=== PATIENT | male | born 1935 | race Hispanic/Latino ===

== ENCOUNTER 2018-02-09 11:24 | Emergency (ER) | payer MEDICARE ==
[2018-02-09 11:24] VITALS: BMI 21.9
--- NOTE | 2018-02-09 11:44 | C.PDOC ---
History Of Present Illness 82 y/o male, whose PMH includes hypertension, atrial fibrillation, arthritis, and pacemaker, who presents to the emergency department complaining of possible stroke prior to arrival. Patient reports having right shoulder pulling pain that radiates down the arm since last night at 12 AM. He notes waking up this morning at 4 AM and while shaving, he dropped his razor and decided to call 911. Additionally, patient is complainig of cough secondary to using A/C. Patient denies chest pain, shortness of breath, headache, fever, chills, nausea , vomiting, diarrhea, diaphoresis, jaw pain, back pain, lower extremity pain/ swelling, recent travels, recent surgery, or recent prolonged immobilization. Patient had echocardiography by his PMD and was scheduled to follow up next week. PMD: Dr. Lai Time Seen by Provider: 02/09/18 11:42 Chief Complaint (Nursing): Upper Extremity Problem/Injury History Per: Patient History/Exam Limitations: no limitations Onset/Duration Of Symptoms: Hrs Current Symptoms Are (Timing): Still Present Recent travel outside of the [place]: No Past Medical History Reviewed: Historical Data, Nursing Documentation, Vital Signs Vital Signs: Last Vital Signs Temp 98.8 F 02/09/18 13:45 Pulse 85 02/09/18 13:45 Resp 18 02/09/18 13:45 BP 130/74 02/09/18 13:45 Pulse Ox 99 02/09/18 13:45 - Medical History PMH: Arthritis, Atrial Fibrillation, HTN Surgical History: Pacemaker ([employer]) Family History: States: No Known Family Hx - Social History Hx Tobacco Use: No Hx Alcohol Use: Yes (FEW BEERS/WEEK) Hx Substance Use: No - Immunization History Hx Tetanus Toxoid Vaccination: No Hx Influenza Vaccination: Yes Hx Pneumococcal Vaccination: Yes Review Of Systems Constitutional: Negative for: Fever, Chills Cardiovascular: Negative for: Chest Pain Respiratory: Positive for: Cough. Negative for: Shortness of Breath Gastrointestinal: Negative for: Vomiting, Abdominal Pain Genitourinary: Negative for: Dysuria Musculoskeletal: Positive for: Shoulder Pain (right shoulder radiating down arm) , Arm Pain (right arm) Neurological: Negative for: Change in Speech, Dizziness Physical Exam - Physical Exam Appears: Well, Non-toxic, No Acute Distress Skin: Normal Color, Warm, Dry Head: Atraumatic, Normacephalic Eye(s): bilateral: Normal Inspection, PERRL, EOMI Cardiovascular: Rhythm Regular, No Murmur Respiratory: Normal Breath Sounds, No Decreased Breath Sounds, No Rales, No Rhonchi, No Wheezing Gastrointestinal/Abdominal: Normal Exam, Bowel Sounds (active), Soft, No Tenderness, No Distention, No Guarding, No Rebound Extremity: No Normal ROM (limited ROM on right shoulder and arm. Patient has difficulty lifting arm above head ), No Deformity, Other (crepitus on right shoulder. ) Extremity: Left: Normal ROM (limited ROM for right arm) Neurological/Psych: Oriented x3, Normal Speech, Normal Cognition, Normal Motor, Normal Sensation, Normal Reflexes, Other (no pronator drift ) ED Course And Treatment Pulse Ox Interpretation: Normal Medical Decision Making Medical Decision Making: Impression: 82 y/o male with limited range of motion on right shoulder and arm c/o right shoulder pain since last night. Plan: -- Toradol -- Right shoulder x-ray -- Reassess and disposition Progress Note: 02/09/18 Shoulder x-ray interpreted by me: No noted dislocation or fx. Patient states he feels better and is waiting for someone to pick him up. Disposition - Disposition Disposition: HOME/ ROUTINE Disposition Time: 15:01 Condition: GOOD Instructions: Shoulder Sprain Forms: [employer] (Peruvian) - Clinical Impression Clinical Impression: Shoulder sprain - Scribe Statement The provider has reviewed the documentation as recorded by the Scribe Scribe Attestation: Joy Shirley MD Scribe Attestation: All medical record entries made by the Scribe were at my direction and personally dictated by me. I have reviewed the chart and agree that the record accurately reflects my personal performance of the history, physical exam, medical decision making, and the department course for this patient. I have also personally directed, reviewed, and agree with the discharge instructions and disposition.
[2018-02-09 13:46] VITALS: BP 130/74; PULSE 85; RESP 18; TEMP 98.8; O2SAT 99
--- NOTE | 2018-02-09 17:52 | RAD ---
PROCEDURE: Radiographs of the Right Shoulder HISTORY: shoulder pain COMPARISON: No prior. FINDINGS: BONES: There is diffuse bone demineralization. There is no acute displaced fracture or bone destruction. There is superior displacement of the humeral head with reduced subacromion space. JOINTS: Mild degenerative osteoarthrosis in the glenohumeral and acromioclavicular joints. SOFT TISSUES: There are faint lobular calcifications lateral to the humeral head which may represent calcific tendinitis. OTHER FINDINGS: None. IMPRESSION: No acute displaced fracture or dislocation. Findings concerning for chronic rotator cuff injury. Degenerative osteoarthrosis in the glenohumeral and acromioclavicular joints. 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
== END 2018-02-09 15:08 | disposition home or self-care (01) ==
LOC: C.ER 11:24
DX: S43.401A Unspecified sprain of right shoulder joint, initial encounter (principal); X58.XXXA Exposure to other specified factors, initial encounter; Y92.89 Other specified places as the place of occurrence of the external cause; I10 Essential (primary) hypertension; I48.91 Unspecified atrial fibrillation; Z95.0 Presence of cardiac pacemaker; Z87.891 Personal history of nicotine dependence
CPT/HCPCS: 73030; 82948; 96374; 99284; J1885

== ENCOUNTER 2018-02-11 16:30 | Inpatient (IN) | payer MEDICARE ==
[2018-02-11 16:31] VITALS: BMI 21.9
[2018-02-11 17:24] LABS: BASO # 0.1 K/uL (0.0-0.2); BASO % 1.5 % (0.0-2.0); EOS # 0.2 K/uL (0.0-0.7); EOS % 3.3 % (0.0-4.0); HEMOGLOBIN 16.2 g/dL (12.0-18.0); LYMPH # 0.7 K/uL (1.0-4.3); MEAN CORPUSCULAR HEMOGLOBIN 32.3 pg (27.0-31.0); MEAN CORPUSCULAR HGB CONC 33.5 g/dL (33.0-37.0); MEAN PLATELET VOLUME 8.1 fL (7.2-11.7); MONO # 0.8 K/uL (0.0-0.8); NEUT # 4.9 K/uL (1.8-7.0); NEUT % 72.2 % (50.0-75.0); NRBC % 0.1 % (0.0-2.0); RBC 5.01 Mil/uL (4.40-5.90); RED CELL DISTRIBUTION WIDTH 14.3 % (11.5-14.5); WHITE BLOOD COUNT 6.7 K/uL (4.8-10.8)
[2018-02-11 17:37] LABS: INR 1.7
[2018-02-11 17:40] LABS: ALB/GLOB RATIO 1.3 (1.0-2.1); ALBUMIN 4.4 g/dL (3.5-5.0); ALT/SGPT 39 U/L (21-72); AST/SGOT 42 U/L (17-59); BLOOD UREA NITROGEN 18 mg/dL (9-20); CALCIUM 9.2 mg/dl (8.6-10.4); GFR AFRICAN-AMERICAN > 60; GFR NON-AFRICAN AMERICAN > 60
[2018-02-11 17:42] LABS: MEAN CELL VOLUME 96.5 fL (80.0-94.0)
--- NOTE | 2018-02-11 17:59 | C.PDOC ---
History Of Present Illness 82 yo male w/PMHx of afib, pacemaker, CAD, COPD come in for evaluation of few episodes of SOB developed since today AM. Pt describes, noted some SOB on exertion, relieved by rest, intermittent, self-limited, associated with weakness , dizziness. Pt reports, was seen by his card. last week, pace maker re -check " was told there is some problem, suppose to see him tomorrow". Otherwise , pt denies fever, chills, recent illness, headache, vertigo, visual changes, focal deficits, CP, cough, palpitation, wheezing, abd. pain, N/V, UTI sx. Ambulate to Ed, not in any apparent distress. Time Seen by Provider: 02/11/18 16:41 Chief Complaint (Nursing): Shortness Of Breath History Per: Patient Past Medical History Reviewed: Historical Data, Nursing Documentation, Vital Signs Vital Signs: Last Vital Signs Temp 97.7 F 02/12/18 15:04 Pulse 91 H 02/12/18 15:04 Resp 20 02/12/18 15:04 BP 127/81 02/12/18 15:04 Pulse Ox 94 L 02/12/18 15:04 - Medical History PMH: Arthritis, Atrial Fibrillation, HTN Surgical History: Pacemaker ([employer]) Family History: States: No Known Family Hx - Social History Hx Tobacco Use: No Hx Alcohol Use: Yes (FEW BEERS/WEEK) Hx Substance Use: No - Immunization History Hx Tetanus Toxoid Vaccination: No Hx Influenza Vaccination: Yes Hx Pneumococcal Vaccination: Yes Review Of Systems Except As Marked, All Systems Reviewed And Found Negative. Constitutional: Positive for: Malaise. Negative for: Fever, Chills Eyes: Negative for: Vision Change ENT: Negative for: Throat Pain Cardiovascular: Positive for: Light Headedness. Negative for: Chest Pain, Palpitations, Orthopnea, Paroxysmal Noc. Dyspnea, Edema Respiratory: Positive for: Shortness of Breath, SOB with Excertion. Negative for: Cough, Hemoptysis, Wheezing Gastrointestinal: Negative for: Nausea, Vomiting, Abdominal Pain, Diarrhea Genitourinary: Negative for: Dysuria Musculoskeletal: Negative for: Neck Pain Neurological: Negative for: Weakness, Numbness, Altered Mental Status, Headache , Dizziness Physical Exam - Physical Exam Appears: Well, Non-toxic, No Acute Distress Skin: Normal Color, Warm, Dry, No Rash Head: Normacephalic Eye(s): bilateral: PERRL Nose: No Flaring, No Discharge Oral Mucosa: Moist, No Drooling Tongue: Normal Appearing Lips: Normal Appearing Throat: No Erythema, No Drooling Neck: Normal ROM, Trachea Midline, Supple Cardiovascular: Rhythm Regular, No Murmur, No JVD Respiratory: No Decreased Breath Sounds, No Accessory Muscle Use, No Stridor, No Wheezing Gastrointestinal/Abdominal: Soft, No Tenderness Extremity: Normal ROM, No Pedal Edema, No Deformity, No Swelling Neurological/Psych: Oriented x3, Normal Speech, Normal Motor, Normal Sensation, Normal Reflexes ED Course And Treatment - Laboratory Results Result Diagrams: 02/12/18 04:18 02/12/18 04:18 ECG: Interpreted By Me, Viewed By Me ECG Rhythm: Atrial Fibrillation ECG Interpretation: No Changes From Prior Interpretation Of ECG: AFib@81/min O2 Sat by Pulse Oximetry: 97 Pulse Ox Interpretation: Normal - Radiology CXR: Interpreted by Me, Viewed By Me CXR Interpretation: Yes: No Acute Disease Progress Note: Pt remained tsable during the ED evaluation. Afebrile, hemodynmaicalys table. NOn-toxic. Blood work review, high BNP, Troponin- negative. EKG- no new changes compare to old study. Pt's cardiology Dr.Desai nolen, no answer for 1.5 hrs. Pt's PMD , hospitalist covering inpatient care. Case discussed with hospitalist and admission arranged to tele with Dx: SOB, CHF exacerbation. Disposition - Disposition Disposition: HOSPITALIZED Disposition Time: 18:10 Condition: STABLE - Clinical Impression Clinical Impression: Chronic congestive heart failure, Dyspnea, Pacemaker malfunction
[2018-02-11 18:09] LABS: B-TYPE NATRIURETIC PEPTIDE 1940 pg/mL (0-900)
[2018-02-11 18:25] LABS: URINE BILIRUBIN NEGATIVE (NEGATIVE); URINE BLOOD 1+ (NEGATIVE); URINE CLARITY Clear (Clear); URINE COLOR Yellow (YELLOW); URINE GLUCOSE (UA) NORMAL (Normal); URINE LEUKOCYTE ESTERASE TRACE Leu/uL (Negative); URINE PROTEIN NEGATIVE (NEGATIVE); URINE UROBILINOGEN NORMAL mg/dL (0.2-1.0)
--- NOTE | 2018-02-11 18:39 | RAD ---
PROCEDURE: CHEST RADIOGRAPH, 1 VIEW HISTORY: chest pain COMPARISON: 07/29/2015 FINDINGS: LUNGS: Clear. PLEURA: No pneumothorax or pleural fluid seen. CARDIOVASCULAR: No radiographic findings to suggest acute or significant cardiovascular disease.Position/ configuration of pacemaker device: Satisfactory. OSSEOUS STRUCTURES: No significant abnormalities. VISUALIZED UPPER ABDOMEN: Normal. OTHER FINDINGS: None. IMPRESSION: No active disease. No acute/significant interval changes.
--- NOTE | 2018-02-11 21:07 | CP.PCM.HP ---
<BrunoKristine SEmilia - Last Filed: 02/11/18 23:12> History of Present Illness - History of Present Illness History of Present Illness: Code Status: DNR/DNI --> patient states he has a POLST form at home Advanced directive: denies POA: Austin Ogden (niece) #[phone]; #[phone] CC: "shortness of breath" HPI: 82 year old male with past medical history as noted below presents to the ER for shortness of breath. Patient states he started having sob at 11am today. He states he was walking in his apartment and he could not catch his breath. He had to sit himself down and it took about 25 minutes before he felt better. He states his neighbors called 911 for him. He states this is the first time this has occurred. He states he felt lightheaded when he was short of breath and weak. He states he uses only one pillow to sleep and he does not use oxygen at home. He denies chest pain, nausea, vomiting, dizziness, headache , diarrhea, constipation, palpitations, dysuria, leg edema at this time. He states he uses a rolling walker and a cane for ambulation. PMD: Dr. Zuniga Traveling Passenger Agent: Dr. Byrd Past Medical History: HTN; Afib; PVD; left heel ulcer (6 months); mandibular cyst Past Surgical History: TAVR - aortic valve replacement 03/2015; Pacemaker 03/2015 - last interrogated was last week; 2 veins removed in his left lower extremity ( 10/2017 and 2014) Medications: Plavix 75mg dialy; Valsartan 40mg daily; Crestor 5mg daily; Xarelta 10mg dialy; protonix 40mg daily; metoprolol tartrate 25mg daily; Lasix 40mg dialy; Fluoxetine 20mg daily Allergies: Penicillin - swelling Family History: Dad - heart disease; at 49yo due to coronary thrombosis; Mom - heart disease; paternal uncle - heart disease Social History: quit smoking 30 years ago; previously smoked for 20 years about 1ppd; drinks 1 beer on a Sunday; denies illicit drug use; lives home along has a home visiting nurse; stopped working in 2014 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 Present on Admission - Present on Admission Any Indicators Present on Admission: No Review of Systems - Constitutional Constitutional: Weakness. absent: Chills, Fever, Weight Gain, Weight Loss - Cardiovascular Cardiovascular: Dyspnea, Dyspnea on Exertion, Lightheadedness. absent: Chest Pain, Leg Edema, Palpitations, Pedal Edema - Respiratory Respiratory: Dyspnea. absent: Cough - Gastrointestinal Gastrointestinal: absent: Abdominal Pain, Constipation, Diarrhea, Nausea, Vomiting - Genitourinary Genitourinary: absent: Dysuria, Hematuria - Musculoskeletal Musculoskeletal: absent: Numbness, Stiffness - Neurological Neurological: Weakness. absent: Dizziness, Headaches, Tingling Past Patient History - Past Social History Smoking Status: Former Smoker - CARDIAC Hx Atrial Fibrillation: Yes Hx Hypertension: Yes Hx Pacemaker: Yes ([employer]) - NEUROLOGICAL Hx Paralysis: No - HEMATOLOGICAL/ONCOLOGICAL Hx Blood Transfusions: No - MUSCULOSKELETAL/RHEUMATOLOGICAL Hx Arthritis: Yes - PSYCHIATRIC Hx Substance Use: No - SURGICAL HISTORY Hx Surgeries: Yes Other/Comment: pacemaker, valve replacement - ANESTHESIA Hx Anesthesia: Yes Hx Anesthesia Reactions: No Hx Malignant Hyperthermia: No Meds Allergies/Adverse Reactions: Allergies Allergy/AdvReac Type Severity Reaction Status Date / Time penicillin V Allergy Severe RASH/HIVES Verified 02/09/18 11:45 Physical Exam - Constitutional Appears: No Acute Distress - Head Exam Head Exam: ATRAUMATIC, NORMAL INSPECTION - Eye Exam Eye Exam: EOMI, Normal appearance, PERRL. absent: Scleral icterus Pupil Exam: NORMAL ACCOMODATION - ENT Exam ENT Exam: Mucous Membranes Moist - Neck Exam Neck exam: Negative for: Lymphadenopathy Additional comments: left side of his mandible - palpable cyst - Respiratory Exam Respiratory Exam: Clear to Auscultation Bilateral, NORMAL BREATHING PATTERN. absent: Rales, Rhonchi, Wheezes, Stridor - Cardiovascular Exam Cardiovascular Exam: Irregular Rhythm. absent: JVD - GI/Abdominal Exam GI & Abdominal Exam: Normal Bowel Sounds, Soft. absent: Tenderness - Extremities Exam Extremities exam: Positive for: normal capillary refill, pedal pulses present. Negative for: joint swelling, normal inspection (left heel ulcer ), pedal edema , tenderness - Neurological Exam Neurological exam: Alert, CN II-XII Intact, Oriented x3 - Psychiatric Exam Psychiatric exam: Normal Affect, Normal Mood - Skin Skin Exam: Normal Color Results - Vital Signs Recent Vital Signs: Last Vital Signs Temp 98.2 F 02/11/18 19:30 Pulse 98 H 02/11/18 19:30 Resp 18 02/11/18 19:30 BP 132/66 02/11/18 19:30 Pulse Ox 95 02/11/18 19:30 - Labs Result Diagrams: 02/11/18 17:20 02/11/18 17:20 Labs: Laboratory Results - last 24 hr 02/11/18 02/11/18 02/11/18 17:20 17:20 17:20 WBC 6.7 RBC 5.01 Hgb 16.2 Hct 48.4 MCV 96.5 H D MCH 32.3 H MCHC 33.5 RDW 14.3 Plt Count 318 MPV 8.1 Neut % (Auto) 72.2 Lymph % (Auto) 11.0 L Stanley % (Auto) 12.0 H Eos % (Auto) 3.3 Baso % (Auto) 1.5 Neut # (Auto) 4.9 Lymph # (Auto) 0.7 L Stanley # (Auto) 0.8 Eos # (Auto) 0.2 Baso # (Auto) 0.1 PT 19.0 H INR 1.7 APTT 45 H Sodium 141 Potassium 3.7 Chloride 101 Carbon Dioxide 28 Anion Gap 15 BUN 18 Creatinine 0.7 L Est GFR ( Amer) > 60 Est GFR (Non-Af Amer) > 60 Random Glucose 127 H Calcium 9.2 Total Bilirubin 1.2 AST 42 ALT 39 Alkaline Phosphatase 107 Troponin I 0.0140 NT-Pro-B Natriuret Pep 1940 H Total Protein 7.8 Albumin 4.4 Globulin 3.4 Albumin/Globulin Ratio 1.3 Urine Color Urine Clarity Urine pH Ur Specific [place] Urine Protein Urine Glucose (UA) Urine Ketones Urine Blood Urine Nitrate Urine Bilirubin Urine Urobilinogen Ur Leukocyte Esterase Urine WBC (Auto) Urine RBC (Auto) 02/11/18 18:10 WBC RBC Hgb Hct MCV MCH MCHC RDW Plt Count MPV Neut % (Auto) Lymph % (Auto) Stanley % (Auto) Eos % (Auto) Baso % (Auto) Neut # (Auto) Lymph # (Auto) Stanley # (Auto) Eos # (Auto) Baso # (Auto) PT INR APTT Sodium Potassium Chloride Carbon Dioxide Anion Gap BUN Creatinine Est GFR ( Amer) Est GFR (Non-Af Amer) Random Glucose Calcium Total Bilirubin AST ALT Alkaline Phosphatase Troponin I NT-Pro-B Natriuret Pep Total Protein Albumin Globulin Albumin/Globulin Ratio Urine Color Yellow Urine Clarity Clear Urine pH 5.0 Ur Specific [place] 1.011 Urine Protein Negative Urine Glucose (UA) Normal Urine Ketones Negative Urine Blood 1+ H Urine Nitrate Negative Urine Bilirubin Negative Urine Urobilinogen Normal Ur Leukocyte Esterase Trace Urine WBC (Auto) 2 Urine RBC (Auto) < 1 Assessment & Plan - Assessment and Plan (Free Text) Assessment: Dyspnea - trop negative x2 - EKG afib; chronic left bundle branch block; 80bpm - Chest xray: no active disease - dunebs prn History of HTN - continue home medications: * Cozar 25mg daily * Lopressor 25mg daily History of Aortic Stenosis s/p TAVR 2014 - BNP 1940 -Continue home medications * Lopressor 25mg daily * Crestor 5mg daily * Plavix 75mg daily * Lasix 40mg daily History of Afib - Continue home medications: * Xeralto 10mg daily - f/u interrogation of pacemaker in the AM Left heel ulcer - boots - daily dressing changes - patient states the nurse has been placing fish skin on the wound History of Gastritis - Pantoprazole 40mg dialy History of Depression - Fluoxetine 20mg daily Prophylaxis - Pantoprazol 40mg daily - Xeralto 10mg dialy - SCDs - PT eval and treat Case discussed with Dr. Yony Carr PGY-2 <Eligio Bhakta P - Last Filed: 02/12/18 06:35> Results - Vital Signs Recent Vital Signs: Last Vital Signs Temp 97.3 F L 02/12/18 04:00 Pulse 93 H 02/12/18 04:10 Resp 20 02/11/18 23:40 BP 136/76 02/12/18 04:00 Pulse Ox 20 L 02/12/18 04:00 - Labs Result Diagrams: 02/12/18 04:18 02/12/18 04:18 Labs: Laboratory Results - last 24 hr 02/11/18 02/11/18 02/11/18 17:20 17:20 17:20 WBC 6.7 RBC 5.01 Hgb 16.2 Hct 48.4 MCV 96.5 H D MCH 32.3 H MCHC 33.5 RDW 14.3 Plt Count 318 MPV 8.1 Neut % (Auto) 72.2 Lymph % (Auto) 11.0 L Stanley % (Auto) 12.0 H Eos % (Auto) 3.3 Baso % (Auto) 1.5 Neut # (Auto) 4.9 Lymph # (Auto) 0.7 L Stanley # (Auto) 0.8 Eos # (Auto) 0.2 Baso # (Auto) 0.1 PT 19.0 H INR 1.7 APTT 45 H Sodium 141 Potassium 3.7 Chloride 101 Carbon Dioxide 28 Anion Gap 15 BUN 18 Creatinine 0.7 L Est GFR ( Amer) > 60 Est GFR (Non-Af Amer) > 60 Random Glucose 127 H Calcium 9.2 Phosphorus Magnesium Total Bilirubin 1.2 AST 42 ALT 39 Alkaline Phosphatase 107 Total Creatine Kinase CK-MB (Mass) Troponin I 0.0140 NT-Pro-B Natriuret Pep 1940 H Total Protein 7.8 Albumin 4.4 Globulin 3.4 Albumin/Globulin Ratio 1.3 Urine Color Urine Clarity Urine pH Ur Specific [place] Urine Protein Urine Glucose (UA) Urine Ketones Urine Blood Urine Nitrate Urine Bilirubin Urine Urobilinogen Ur Leukocyte Esterase Urine WBC (Auto) Urine RBC (Auto) 02/11/18 02/11/18 02/12/18 18:10 21:55 04:18 WBC 7.4 RBC 4.91 Hgb 16.0 Hct 47.3 MCV 96.3 H MCH 32.6 H MCHC 33.9 RDW 14.3 Plt Count 279 MPV 8.1 Neut % (Auto) 69.1 Lymph % (Auto) 12.9 L Stanley % (Auto) 13.7 H Eos % (Auto) 3.0 Baso % (Auto) 1.3 Neut # (Auto) 5.1 Lymph # (Auto) 1.0 Stanley # (Auto) 1.0 H Eos # (Auto) 0.2 Baso # (Auto) 0.1 PT INR APTT Sodium Potassium Chloride Carbon Dioxide Anion Gap BUN Creatinine Est GFR ( Amer) Est GFR (Non-Af Amer) Random Glucose Calcium Phosphorus Magnesium Total Bilirubin AST ALT Alkaline Phosphatase Total Creatine Kinase 57 CK-MB (Mass) 1.33 Troponin I 0.0160 NT-Pro-B Natriuret Pep Total Protein Albumin Globulin Albumin/Globulin Ratio Urine Color Yellow Urine Clarity Clear Urine pH 5.0 Ur Specific [place] 1.011 Urine Protein Negative Urine Glucose (UA) Normal Urine Ketones Negative Urine Blood 1+ H Urine Nitrate Negative Urine Bilirubin Negative Urine Urobilinogen Normal Ur Leukocyte Esterase Trace Urine WBC (Auto) 2 Urine RBC (Auto) < 1 02/12/18 02/12/18 04:18 04:18 WBC RBC Hgb Hct MCV MCH MCHC RDW Plt Count MPV Neut % (Auto) Lymph % (Auto) Stanley % (Auto) Eos % (Auto) Baso % (Auto) Neut # (Auto) Lymph # (Auto) Stanley # (Auto) Eos # (Auto) Baso # (Auto) PT INR APTT Sodium 142 Potassium 3.9 Chloride 102 Carbon Dioxide 27 Anion Gap 17 BUN 21 H Creatinine 0.8 Est GFR ( Amer) > 60 Est GFR (Non-Af Amer) > 60 Random Glucose 105 Calcium 9.5 Phosphorus 4.1 Magnesium 1.8 Total Bilirubin 0.9 AST 34 ALT 42 Alkaline Phosphatase 120 Total Creatine Kinase 73 CK-MB (Mass) 1.45 Troponin I NT-Pro-B Natriuret Pep Total Protein 7.6 Albumin 4.1 Globulin 3.5 Albumin/Globulin Ratio 1.2 Urine Color Urine Clarity Urine pH Ur Specific [place] Urine Protein Urine Glucose (UA) Urine Ketones Urine Blood Urine Nitrate Urine Bilirubin Urine Urobilinogen Ur Leukocyte Esterase Urine WBC (Auto) Urine RBC (Auto) Attending/Attestation - Attestation I have personally seen and examined this patient.: Yes I have fully participated in the care of the patient.: Yes I have reviewed all pertinent clinical information: Yes Notes (Text): 02/12/18 06:30 3 episodes lasting about 20 min each of sob, dizziness, observed by visiting nurse on 2nd episode with maintained vitals, asymptomatic in ER, no findings suggesting the symptoms, evaluated by his state manager 2 days prior was told will need f/u for assessing pacemaker. H/o TAVR Afib on xerato Left ankle ? venous ulcer healing Plan Pacemaker interrogation around 10:30, 11:30 and 1 pm will d/w patients state manager and pmd Observation in tele See orders for detail
[2018-02-11] MEDS ORDERED: Albuterol-Ipratrop 3 mg / 0.5 (3 ml) UD INH PRN (21:31)
[2018-02-11 22:27] LABS: CK-MB 1.33 ng/mL (0.0-3.38); TROPONIN I 0.016 ng/mL (0.00-0.120)
[2018-02-12 04:24] LABS: BASO # 0.1 K/uL (0.0-0.2); MEAN CELL VOLUME 96.3 fL (80.0-94.0); RED CELL DISTRIBUTION WIDTH 14.3 % (11.5-14.5)
[2018-02-12 04:31] LABS: BASO % 1.3 % (0.0-2.0); EOS # 0.2 K/uL (0.0-0.7); LYMPH % 12.9 % (20.0-40.0); MEAN CORPUSCULAR HEMOGLOBIN 32.6 pg (27.0-31.0); MEAN CORPUSCULAR HGB CONC 33.9 g/dL (33.0-37.0); MEAN PLATELET VOLUME 8.1 fL (7.2-11.7); MONO % 13.7 % (0.0-10.0); NEUT # 5.1 K/uL (1.8-7.0); NEUT % 69.1 % (50.0-75.0); NRBC % 0.2 % (0.0-2.0); RBC 4.91 Mil/uL (4.40-5.90); WHITE BLOOD COUNT 7.4 K/uL (4.8-10.8)
[2018-02-12 04:36] LABS: ALB/GLOB RATIO 1.2 (1.0-2.1); ALBUMIN 4.1 g/dL (3.5-5.0); ALT/SGPT 42 U/L (21-72); AST/SGOT 34 U/L (17-59); BLOOD UREA NITROGEN 21 mg/dL (9-20); CALCIUM 9.5 mg/dl (8.6-10.4); GFR AFRICAN-AMERICAN > 60; GFR NON-AFRICAN AMERICAN > 60
[2018-02-12 04:44] LABS: CK-MB 1.45 ng/mL (0.0-3.38)
[2018-02-12 06:42] LABS: TROPONIN I 0.02 ng/mL (0.00-0.120)
--- NOTE | 2018-02-12 08:58 | CP.PCM.PN ---
<Keke Lai V - Last Filed: 02/12/18 15:59> Objective - Vital Signs/Intake and Output Vital Signs (last 24 hours): Temp Pulse Resp BP Pulse Ox 98.1 F 76 18 135/80 95 02/12/18 07:20 02/12/18 11:55 02/12/18 07:20 02/12/18 09:12 02/12/18 07:20 Intake and Output: 02/12/18 02/12/18 06:59 18:59 Output Total 400 Balance -400 - Medications Medications: Current Medications Albuterol/Ipratropium (Duoneb 3 Mg/0.5 Mg (3 Ml) Ud) 3 ml INH RQ4 PRN PRN Reason: Shortness of Breath Clopidogrel Bisulfate (Plavix) 75 mg PO DAILY [facility] Last Admin: 02/12/18 09:12 Dose: 75 mg Fluoxetine HCl (Prozac) 20 mg PO DAILY [facility] Last Admin: 02/12/18 09:12 Dose: 20 mg Furosemide (Lasix) 40 mg PO DAILY [facility] Last Admin: 02/12/18 09:12 Dose: 40 mg Losartan Potassium (Cozaar) 25 mg PO DAILY [facility] Last Admin: 02/12/18 09:12 Dose: 25 mg Metoprolol Tartrate (Lopressor) 75 mg PO DAILY [facility] Last Admin: 02/12/18 09:12 Dose: 75 mg Pantoprazole Sodium (Protonix Ec Tab) 40 mg PO DAILY [facility] Last Admin: 02/12/18 09:12 Dose: 40 mg Rivaroxaban (Xarelto) 10 mg PO DAILY [facility] Last Admin: 02/12/18 09:12 Dose: 10 mg Rosuvastatin Calcium (Crestor) 5 mg PO [facility] - Labs Labs: 02/12/18 04:18 02/12/18 04:18 PT 19.0 SECONDS (9.7-12.2) H 02/11/18 17:20 INR 1.7 02/11/18 17:20 APTT 45 SECONDS (21-34) H 02/11/18 17:20 Attending/Attestation - Attestation I have personally seen and examined this patient.: Yes I have fully participated in the care of the patient.: Yes I have reviewed all pertinent clinical information, including history, physical exam and plan: Yes Notes (Text): Patient seen, examined and case discussed with the patient. Prior to our arrival, patient reported he had shortness of breathe for 20 min with near syncopal symptoms. Patient reports he had his pacemaker checked last week by the insurance service representative and then saw Dr. Byrd his office on . I spoke with Dr. Byrd, he reports patient has a low ejection fraction (30-35%) and attempted patient on a holter monitor. He reports he will review his Holter to see if any arryhtyhmia. He reports he had a TAVR about 3-4 years ago which he did well but the concern was given his new low ejection and risk of arrhythmia that we may need to switch the pacemaker to AICD. Will continue to monitor on telemetry as we get back the holter results and we have new echocardiogram as well. Chest xray shows no acute change. I spoke with Dr. Byrd in regards to Holter machine--> no ventricular tachyarrythmia noted. Assessment/Plan 1) Dyspnea Assessment/Plan * Monitor on telemetry * Pertinent positive: s/p TAVR (2014), Atrial fibrillation (on AC), Pacemaker , Smoking history * Pacemaker placed in 03/2015 - last interrogated was last week, reports his flux mixer Dr Byrd told him at that time there was an issue with his pacemaker and that it needs to be rechecked. Patient completed Holter with Dr. Byrd; we will follow-up to see if any arrhthymias noted * Concern for arrhythmia given low ejection fraction when I spoke with his flux mixer; he has completed holter this past week; he will review the holter * Duonebs PRN shortness of breathe * D-dimer: negative * Elevated probnp * Troponin X3 2) Atrial Fibrillation Assessment/Plan * CHADS: 3 * Patient is on Xarelto 10mg PO daily * Metoprolol Tartrate 75mg PO daily * Patient's outpatient flux mixer, Dr. hawk byrd, does not come here---> will f/u holter and consult cardiology, Dr. Vu 3) History of Aortic Stenosis s/p TAVR 2014 Coronary Artery Disease + Stent History of Pacemaker Cardiomyopathy Assessment/Plan * monitor on telemetry * Patient's outpatient flux mixer, Dr. Hawk byrd, does not come here---> will f/u holter and consult cardiology, Dr. Vu * BNP 1937 * Measure daily weights, Is/Os * Continue home medications * Lopressor 75mg daily * Crestor 5mg POqHS * Plavix 75mg daily * Lasix 40mg daily * Order for echocardiogram check EF * Crestor 5mg POqHS 4) Hypertension Assessment/Plan * Monitor vital signs * Cozaar 25mg daily * Lopressor 75mg daily 5) Left heel ulcer Assessment/Plan * Patient's private community recreation coordinator, Dr Kenney who he sees routinely for Darkin solution * Daily dressing changes 6) Peripheral Vascular Disease Assessment/Plan * 2 veins removed in his left lower extremity (10/2017 and 2014) 7) History of Gastritis * Pantoprazole 40mg dialy 8) History of Depression * Fluoxetine 20mg PO daily 9) Prophylaxis * Protonix 40mg PO daily * Xarelto 10mg dialy * SCDs * PT eval and treat * OT eval <Edgar Bridges - Last Filed: 02/12/18 17:30> Subjective - Date & Time of Evaluation Date of Evaluation: 02/12/18 Time of Evaluation: 08:57 - Subjective Subjective: PGY-[address] Lai. No acute events noted overnight. Patient stated he was short of breath about 20 minutes before we saw him. He stated this shortness of breath was unprovoked and that it occurred as he was sitting. Denied chest pain, palpitations. Stated his cardio told him something was wrong with his pacemaker but he's unable to recall the exact details. Objective - Vital Signs/Intake and Output Vital Signs (last 24 hours): Temp Pulse Resp BP Pulse Ox 98.1 F 98 H 18 135/89 95 02/12/18 07:20 02/12/18 08:00 02/12/18 07:20 02/12/18 07:20 02/12/18 07:20 Intake and Output: 02/12/18 02/12/18 06:59 18:59 Output Total 400 Balance -400 - Medications Medications: Current Medications Albuterol/Ipratropium (Duoneb 3 Mg/0.5 Mg (3 Ml) Ud) 3 ml INH RQ4 PRN PRN Reason: Shortness of Breath Clopidogrel Bisulfate (Plavix) 75 mg PO DAILY [facility] Fluoxetine HCl (Prozac) 20 mg PO DAILY [facility] Furosemide (Lasix) 40 mg PO DAILY [facility] Losartan Potassium (Cozaar) 25 mg PO DAILY [facility] Metoprolol Tartrate (Lopressor) 75 mg PO DAILY [facility] Pantoprazole Sodium (Protonix Ec Tab) 40 mg PO DAILY [facility] Rivaroxaban (Xarelto) 10 mg PO DAILY [facility] Rosuvastatin Calcium (Crestor) 5 mg PO HS [facility] - Labs Labs: 02/12/18 04:18 02/12/18 04:18 PT 19.0 SECONDS (9.7-12.2) H 02/11/18 17:20 INR 1.7 02/11/18 17:20 APTT 45 SECONDS (21-34) H 02/11/18 17:20 - Additional Findings Additional findings: - Constitutional Appears: No Acute Distress - Head Exam Head Exam: ATRAUMATIC, NORMAL INSPECTION - Eye Exam Eye Exam: EOMI, Normal appearance, PERRL. absent: Scleral icterus Pupil Exam: NORMAL ACCOMODATION - ENT Exam ENT Exam: Mucous Membranes Moist - Neck Exam Neck exam: Negative for: Lymphadenopathy Additional comments: left side of his mandible - palpable cyst - Respiratory Exam Respiratory Exam: Clear to Auscultation Bilateral, NORMAL BREATHING PATTERN. absent: Rales, Rhonchi, Wheezes, Stridor - Cardiovascular Exam Cardiovascular Exam: Irregular Rhythm. absent: JVD - GI/Abdominal Exam GI & Abdominal Exam: Normal Bowel Sounds, Soft. absent: Tenderness - Extremities Exam Extremities exam: Positive for: normal capillary refill, pedal pulses present. Negative for: joint swelling, normal inspection (left heel ulcer ), pedal edema , tenderness - Neurological Exam Neurological exam: Alert, CN II-XII Intact, Oriented x3 - Psychiatric Exam Psychiatric exam: Normal Affect, Normal Mood - Skin Skin Exam: Normal Color Assessment and Plan - Assessment and Plan (Free Text) Assessment: 1) Dyspnea Assessment/Plan * Monitor on telemetry * Pertinent positive: s/p TAVR (2014), Atrial fibrillation (on AC), Pacemaker , Smoking history * Pacemaker placed in 03/2015 - last interrogated was last week, reports his flux mixer Dr Byrd told him at that time there was an issue with his pacemaker and that it needs to be rechecked. Patient completed Holter with Dr. Byrd; we will follow-up to see if any arrhthymias noted * Concern for arrhythmia given low ejection fraction when I spoke with his flux mixer; he has completed holter this past week; he will review the holter * Cy PRN shortness of breathe * D-dimer: negative * Elevated probnp * Troponin X3 2) Atrial Fibrillation Assessment/Plan * CHADS: 3 * Patient is on Xarelto 10mg PO daily * Metoprolol Tartrate 75mg PO daily * Patient's outpatient flux mixer, Dr. hawk byrd, does not come here---> will f/u holter and consult cardiology, Dr. Vu 3) History of Aortic Stenosis s/p TAVR 2014 Coronary Artery Disease + Stent History of Pacemaker Cardiomyopathy Assessment/Plan * monitor on telemetry * Patient's outpatient flux mixer, Dr. Hawk byrd, does not come here---> will f/u holter and consult cardiology, Dr. Vu * BNP 194 * Measure daily weights, Is/Os * Continue home medications * Lopressor 75mg daily * Crestor 5mg POqHS * Plavix 75mg daily * Lasix 40mg daily * Order for echocardiogram check EF * MUGA ordered, F/U * Crestor 5mg POqHS 4) Hypertension Assessment/Plan * Monitor vital signs * Cozaar 25mg daily * Lopressor 75mg daily 5) Left heel ulcer Assessment/Plan * Patient's private community recreation coordinator, Dr Kenney who he sees routinely for Darkin solution * Daily dressing changes 6) Peripheral Vascular Disease Assessment/Plan * 2 veins removed in his left lower extremity (10/2017 and 2014) 7) History of Gastritis * Pantoprazole 40mg dialy 8) History of Depression * Fluoxetine 20mg PO daily 9) Prophylaxis * Protonix 40mg PO daily * Xarelto 10mg dialy * SCDs * PT eval and treat * OT eval Case discussed with Dr. Ming Bridges PGY-2
[2018-02-12] MEDS: Pantoprazole 40 mg EC Tab PO SCH (09:12)
--- NOTE | 2018-02-12 19:31 | CARD ---
APPROVED REPORT EKG Measurement Heart [id number] <Conclusion> Atrial fibrillation with occasional ventricular-paced complexes Left bundle branch block Abnormal ECG
--- NOTE | 2018-02-12 19:31 | CARD ---
APPROVED REPORT EKG Measurement Heart [id number] <Conclusion> Atrial fibrillation Left axis deviation Left bundle branch block Abnormal ECG
--- NOTE | 2018-02-13 00:05 | CP.PCM.CON ---
History of Present Illness - History of Present Illness History of Present Illness: CC: "shortness of breath" HPI: 82 year old male with past medical history as noted below presents to the ER for shortness of breath. Patient states he started having sob at 11am today. He states he was walking in his apartment and he could not catch his breath. He had to sit himself down and it took about 25 minutes before he felt better. He states his neighbors called 911 for him. He states this is the first time this has occurred. He states he felt lightheaded when he was short of breath and weak. He states he uses only one pillow to sleep and he does not use oxygen at home. He denies chest pain, nausea, vomiting, dizziness, headache , diarrhea, constipation, palpitations, dysuria, leg edema at this time. He states he uses a rolling walker and a cane for ambulation. PMD: Dr. Zuniga Old Testament Professor: Dr. Byrd Past Medical History: HTN; Afib; PVD; left heel ulcer (6 months); mandibular cyst Past Surgical History: TAVR - aortic valve replacement 03/2015; Pacemaker 03/2015 - last interrogated was last week; 2 veins removed in his left lower extremity ( 10/2017 and 2014) Medications: Plavix 75mg dialy; Valsartan 40mg daily; Crestor 5mg daily; Xarelta 10mg dialy; protonix 40mg daily; metoprolol tartrate 25mg daily; Lasix 40mg dialy; Fluoxetine 20mg daily Allergies: Penicillin - swelling Family History: Dad - heart disease; at 49yo due to coronary thrombosis; Mom - heart disease; paternal uncle - heart disease Social History: quit smoking 30 years ago; previously smoked for 20 years about 1ppd; drinks 1 beer on a Sunday; denies illicit drug use; lives home along has a home visiting nurse; stopped working in 2014 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 Present on Admission - Present on Admission Any Indicators Present on Admission: No Review of Systems - Constitutional Constitutional: Weakness. absent: Chills, Fever, Weight Gain, Weight Loss - Cardiovascular Cardiovascular: Dyspnea, Dyspnea on Exertion, Lightheadedness. absent: Chest Pain, Leg Edema, Palpitations, Pedal Edema - Respiratory Respiratory: Dyspnea. absent: Cough - Gastrointestinal Gastrointestinal: absent: Abdominal Pain, Constipation, Diarrhea, Nausea, Vomiting - Genitourinary Genitourinary: absent: Dysuria, Hematuria - Musculoskeletal Musculoskeletal: absent: Numbness, Stiffness - Neurological Neurological: Weakness. absent: Dizziness, Headaches, Tingling Physical Exam - Constitutional Appears: No Acute Distress - Head Exam Head Exam: ATRAUMATIC, NORMAL INSPECTION - Eye Exam Eye Exam: EOMI, Normal appearance, PERRL. absent: Scleral icterus Pupil Exam: NORMAL ACCOMODATION - ENT Exam ENT Exam: Mucous Membranes Moist - Neck Exam Neck exam: Negative for: Lymphadenopathy Additional comments: left side of his mandible - palpable cyst - Respiratory Exam Respiratory Exam: Clear to Auscultation Bilateral, NORMAL BREATHING PATTERN. absent: Rales, Rhonchi, Wheezes, Stridor - Cardiovascular Exam Cardiovascular Exam: Irregular Rhythm. absent: JVD - GI/Abdominal Exam GI & Abdominal Exam: Normal Bowel Sounds, Soft. absent: Tenderness - Extremities Exam Extremities exam: Positive for: normal capillary refill, pedal pulses present. Negative for: joint swelling, normal inspection (left heel ulcer ), pedal edema , tenderness - Neurological Exam Neurological exam: Alert, CN II-XII Intact, Oriented x3 - Psychiatric Exam Psychiatric exam: Normal Affect, Normal Mood - Skin Skin Exam: Normal Color Past Patient History - Past Medical History & Family History Past Medical History?: Yes - Past Social History Smoking Status: Former Smoker - CARDIAC Hx Atrial Fibrillation: Yes Hx Hypertension: Yes Hx Pacemaker: Yes ([employer]) - NEUROLOGICAL Hx Paralysis: No - HEMATOLOGICAL/ONCOLOGICAL Hx Blood Transfusions: No - MUSCULOSKELETAL/RHEUMATOLOGICAL Hx Arthritis: Yes - PSYCHIATRIC Hx Substance Use: No - SURGICAL HISTORY Hx Surgeries: Yes Other/Comment: pacemaker, valve replacement - ANESTHESIA Hx Anesthesia: Yes Hx Anesthesia Reactions: No Hx Malignant Hyperthermia: No Meds Allergies/Adverse Reactions: Allergies Allergy/AdvReac Type Severity Reaction Status Date / Time penicillin V Allergy Severe RASH/HIVES Verified 02/09/18 11:45 - Medications Medications: Current Medications Albuterol/Ipratropium (Duoneb 3 Mg/0.5 Mg (3 Ml) Ud) 3 ml INH RQ4 PRN PRN Reason: Shortness of Breath Clopidogrel Bisulfate (Plavix) 75 mg PO DAILY [facility] Last Admin: 02/12/18 09:12 Dose: 75 mg Fluoxetine HCl (Prozac) 20 mg PO DAILY [facility] Last Admin: 02/12/18 09:12 Dose: 20 mg Furosemide (Lasix) 40 mg PO DAILY [facility] Last Admin: 02/12/18 09:12 Dose: 40 mg Losartan Potassium (Cozaar) 25 mg PO DAILY [facility] Last Admin: 02/12/18 09:12 Dose: 25 mg Metoprolol Tartrate (Lopressor) 75 mg PO DAILY [facility] Last Admin: 02/12/18 09:12 Dose: 75 mg Pantoprazole Sodium (Protonix Ec Tab) 40 mg PO DAILY [facility] Last Admin: 02/12/18 09:12 Dose: 40 mg Rivaroxaban (Xarelto) 10 mg PO DAILY [facility] Last Admin: 02/12/18 09:12 Dose: 10 mg Rosuvastatin Calcium (Crestor) [address] [facility] Last Admin: 02/12/18 21:10 Dose: 5 mg Results - Vital Signs Recent Vital Signs: Last Vital Signs Temp 97.7 F 02/12/18 15:04 Pulse 89 02/12/18 20:00 Resp 20 02/12/18 15:04 BP 127/81 02/12/18 15:04 Pulse Ox 97 02/12/18 18:23 - Labs Result Diagrams: 02/17/18 06:53 02/17/18 06:53 Labs: Laboratory Results - last 24 hr 02/12/18 02/12/18 02/12/18 04:18 04:18 04:18 WBC 7.4 RBC 4.91 Hgb 16.0 Hct 47.3 MCV 96.3 H MCH 32.6 H MCHC 33.9 RDW 14.3 Plt Count 279 MPV 8.1 Neut % (Auto) 69.1 Lymph % (Auto) 12.9 L [place] % (Auto) 13.7 H Eos % (Auto) 3.0 Baso % (Auto) 1.3 Neut # (Auto) 5.1 Lymph # (Auto) 1.0 [place] # (Auto) 1.0 H Eos # (Auto) 0.2 Baso # (Auto) 0.1 D-Dimer, Quantitative Sodium 142 Potassium 3.9 Chloride 102 Carbon Dioxide 27 Anion Gap 17 BUN 21 H Creatinine 0.8 Est GFR ( Amer) > 60 Est GFR (Non-Af Amer) > 60 Random Glucose 105 Calcium 9.5 Phosphorus 4.1 Magnesium 1.8 Total Bilirubin 0.9 AST 34 ALT 42 Alkaline Phosphatase 120 Total Creatine Kinase 73 CK-MB (Mass) 1.45 Troponin I 0.0200 Total Protein 7.6 Albumin 4.1 Globulin 3.5 Albumin/Globulin Ratio 1.2 02/12/18 09:29 WBC RBC Hgb Hct MCV MCH MCHC RDW Plt Count MPV Neut % (Auto) Lymph % (Auto) [place] % (Auto) Eos % (Auto) Baso % (Auto) Neut # (Auto) Lymph # (Auto) [place] # (Auto) Eos # (Auto) Baso # (Auto) D-Dimer, Quantitative 204 Sodium Potassium Chloride Carbon Dioxide Anion Gap BUN Creatinine Est GFR ( Amer) Est GFR (Non-Af Amer) Random Glucose Calcium Phosphorus Magnesium Total Bilirubin AST ALT Alkaline Phosphatase Total Creatine Kinase CK-MB (Mass) Troponin I Total Protein Albumin Globulin Albumin/Globulin Ratio Assessment & Plan - Assessment and Plan (Free Text) Assessment: 1) Dyspnea Assessment/Plan * Monitor on telemetry * Pertinent positive: s/p TAVR (2014), Atrial fibrillation (on AC), Pacemaker , Smoking history * Pacemaker placed in 03/2015 - last interrogated was last week, reports his cow tester Dr Byrd told him at that time there was an issue with his pacemaker. Pacer interrogated 02/12 and stated it is working well. He also spoke to Dr. Vu. * Concern for arrhythmia given low ejection fraction when I spoke with his cow tester; he has completed holter this past week; Dr Lai spoke with Dr Byrd in regards to Holter machine--> no ventricular tachyarrythmia noted. * Duonebs PRN shortness of breathe * D-dimer: negative * Elevated probnp * Troponin X3 2) Atrial Fibrillation Assessment/Plan * CHADS: 3 * Patient is on Xarelto 10mg PO daily * Metoprolol Tartrate 75mg PO daily * Patient's outpatient cow tester, Dr. hawk byrd, does not come here--->Dr Lai spoke with Dr Byrd in regards to Holter machine--> no ventricular tachyarrythmia noted. 3) History of Aortic Stenosis s/p TAVR 2014 Coronary Artery Disease + Stent History of Pacemaker Cardiomyopathy Assessment/Plan * monitor on telemetry * Patient's outpatient cow tester, Dr. Hawk Byrd, does not come here---> will f/u holter (see notes above) * BNP 1938 * Measure daily weights, Is/Os Imaging: * Echo 02/13 - technically difficult and limited study, LV severely dialted, mild asymmetric left ventricular hypertrophy, left ventricle systolic function mildly impaired, EF 40%, global hypokinesis of left ventricle, left ventricle diastolic function is normal (see full report) * MUGA 02/14 - EF 29% * As per cardio - patient is for AICD upgrade - to go to [place] 02/15 for AICD placement - unsure at this time if patient will return from [facility] or be discharged from [facility]. * Continue home medications * Lopressor 75mg daily * Crestor 5mg POqHS * Lasix 40mg po daily 4) Hypertension Assessment/Plan * Monitor vital signs * Cozaar 25mg daily * Lopressor 75mg daily * Lasix 40mg po qd 5) Left heel ulcer Assessment/Plan * Patient's private mineral engineer, Dr Kenney who he sees routinely for Darkin solution * Daily dressing changes 6) Peripheral Vascular Disease Assessment/Plan * 2 veins removed in his left lower extremity (10/2017 and 2014) * Plavix 75mg daily 7) History of Gastritis * Pantoprazole 40mg dialy 8) History of Depression * Fluoxetine 20mg PO daily 9) Lipomas? * Roughly 4 cm round smooth freely movable soft nontender mass present in the superior left posterior shoulder area. * Roughly 2 cm round smooth freely movable soft nontender mass present at the angle of left mandible. * Should be followed up/monitored by patient's PMD 10) Prophylaxis * Protonix 40mg PO daily * Xarelto 10mg dialy * SCDs * PT eval and treat * OT eval
[2018-02-13 07:19] LABS: BASO # 0.1 K/uL (0.0-0.2); BASO % 1.2 % (0.0-2.0); EOS # 0.3 K/uL (0.0-0.7); EOS % 3.8 % (0.0-4.0); HEMOGLOBIN 16.9 g/dL (12.0-18.0); LYMPH % 13.6 % (20.0-40.0); MEAN CELL VOLUME 95.9 fL (80.0-94.0); MEAN CORPUSCULAR HEMOGLOBIN 33.6 pg (27.0-31.0); MEAN PLATELET VOLUME 8.2 fL (7.2-11.7); NEUT % 68.4 % (50.0-75.0); NRBC % 0.1 % (0.0-2.0); RBC 5.03 Mil/uL (4.40-5.90); RED CELL DISTRIBUTION WIDTH 14.4 % (11.5-14.5); WHITE BLOOD COUNT 7.3 K/uL (4.8-10.8)
[2018-02-13 07:39] LABS: ALB/GLOB RATIO 1.2 (1.0-2.1); ALBUMIN 4.5 g/dL (3.5-5.0); ALT/SGPT 32 U/L (21-72); AST/SGOT 45 U/L (17-59); BLOOD UREA NITROGEN 28 mg/dL (9-20); CALCIUM 9.4 mg/dl (8.6-10.4); GFR AFRICAN-AMERICAN > 60; GFR NON-AFRICAN AMERICAN > 60
--- NOTE | 2018-02-13 07:43 | CP.PCM.PN ---
Subjective - Date & Time of Evaluation Date of Evaluation: 02/13/18 Time of Evaluation: 07:39 - Subjective Subjective: PGY-[address] Vamsi Negrete. No acute events noted overnight. Interrogator checked pacemaker yesterday afternoon and states it is working well. He also spoke to Dr. Vu. Patient today refused MUGA scan as he believed he had one done in 06/2017 and also stated he gets anxiety/claustrophobic being in the scan. Denied symptoms - denied shortness of breath, chest pain, palpitations. Objective - Vital Signs/Intake and Output Vital Signs (last 24 hours): Temp Pulse Resp BP Pulse Ox 97.8 F 89 20 123/71 95 02/13/18 04:00 02/13/18 04:00 02/13/18 04:00 02/13/18 04:00 02/13/18 04:00 Intake and Output: 02/13/18 02/13/18 06:59 18:59 Intake Total 350 Output Total 500 Balance -150 - Medications Medications: Current Medications Albuterol/Ipratropium (Duoneb 3 Mg/0.5 Mg (3 Ml) Ud) 3 ml INH RQ4 PRN PRN Reason: Shortness of Breath Clopidogrel Bisulfate (Plavix) 75 mg PO DAILY [facility] Last Admin: 02/12/18 09:12 Dose: 75 mg Fluoxetine HCl (Prozac) 20 mg PO DAILY [facility] Last Admin: 02/12/18 09:12 Dose: 20 mg Furosemide (Lasix) 40 mg PO DAILY [facility] Last Admin: 02/12/18 09:12 Dose: 40 mg Losartan Potassium (Cozaar) 25 mg PO DAILY [facility] Last Admin: 02/12/18 09:12 Dose: 25 mg Metoprolol Tartrate (Lopressor) 75 mg PO DAILY [facility] Last Admin: 02/12/18 09:12 Dose: 75 mg Pantoprazole Sodium (Protonix Ec Tab) 40 mg PO DAILY [facility] Last Admin: 02/12/18 09:12 Dose: 40 mg Rivaroxaban (Xarelto) 10 mg PO DAILY [facility] Last Admin: 02/12/18 09:12 Dose: 10 mg Rosuvastatin Calcium (Crestor) 5 mg PO [facility] Last Admin: 02/12/18 21:10 Dose: 5 mg - Labs Labs: 02/13/18 07:04 02/13/18 07:04 PT 19.0 SECONDS (9.7-12.2) H 02/11/18 17:20 INR 1.7 02/11/18 17:20 APTT 45 SECONDS (21-34) H 02/11/18 17:20 - Additional Findings Additional findings: - Constitutional Appears: No Acute Distress - Head Exam Head Exam: ATRAUMATIC, NORMAL INSPECTION - Eye Exam Eye Exam: EOMI, Normal appearance, PERRL. absent: Scleral icterus Pupil Exam: NORMAL ACCOMODATION - ENT Exam ENT Exam: Mucous Membranes Moist - Neck Exam Neck exam: Negative for: Lymphadenopathy Additional comments: left side of his mandible - palpable cyst - Respiratory Exam Respiratory Exam: Clear to Auscultation Bilateral, NORMAL BREATHING PATTERN. absent: Rales, Rhonchi, Wheezes, Stridor - Cardiovascular Exam Cardiovascular Exam: Irregular Rhythm. absent: JVD - GI/Abdominal Exam GI & Abdominal Exam: Normal Bowel Sounds, Soft. absent: Tenderness - Extremities Exam Extremities exam: Positive for: normal capillary refill, pedal pulses present. Negative for: joint swelling, normal inspection (left heel ulcer ), pedal edema , tenderness venous ulcer measurements are 5 x 2.3 x 0.5 cm. - Neurological Exam Neurological exam: Alert, CN II-XII Intact, Oriented x3 - Psychiatric Exam Psychiatric exam: Normal Affect, Normal Mood - Skin Skin Exam: Normal Color Assessment and Plan - Assessment and Plan (Free Text) Assessment: 1) Dyspnea Assessment/Plan * Monitor on telemetry * Pertinent positive: s/p TAVR (2014), Atrial fibrillation (on AC), Pacemaker , Smoking history * Pacemaker placed in 03/2015 - last interrogated was last week, reports his natural gas plant supervisor Dr Byrd told him at that time there was an issue with his pacemaker. Pacer interrogated 02/12 and stated it is working well. He also spoke to Dr. Vu. * Concern for arrhythmia given low ejection fraction when I spoke with his natural gas plant supervisor; he has completed holter this past week; Dr Lai spoke with Dr Byrd in regards to Holter machine--> no ventricular tachyarrythmia noted. * Duonebs PRN shortness of breathe * D-dimer: negative * Elevated probnp * Troponin X3 2) Atrial Fibrillation Assessment/Plan * CHADS: 3 * Patient is on Xarelto 10mg PO daily * Metoprolol Tartrate 75mg PO daily * Patient's outpatient natural gas plant supervisor, Dr. hawk byrd, does not come here--->Dr Lai spoke with Dr Byrd in regards to Holter machine--> no ventricular tachyarrythmia noted. * consult cardiology, Dr Vu 3) History of Aortic Stenosis s/p TAVR 2014 Coronary Artery Disease + Stent History of Pacemaker Cardiomyopathy Assessment/Plan * monitor on telemetry * Patient's outpatient natural gas plant supervisor, Dr. Hawk Bryd, does not come here---> will f/u holter (see notes above) * consult cardiology, Dr. Vu * BNP 1937 * Measure daily weights, Is/Os * Continue home medications * Lopressor 75mg daily * Crestor 5mg POqHS * Lasix 40mg daily * Order for echocardiogram check EF * MUGA ordered, F/U - patient refused scan today due to anxiety/claustrophobia, stated he will try tomorrow with xanax 0.25 prior to scan. * Crestor 5mg POqHS 4) Hypertension Assessment/Plan * Monitor vital signs * Cozaar 25mg daily * Lopressor 75mg daily 5) Left heel ulcer Assessment/Plan * Patient's private floor plan adjuster, Dr Kenney who he sees routinely for Darkin solution * Daily dressing changes 6) Peripheral Vascular Disease Assessment/Plan * 2 veins removed in his left lower extremity (10/2017 and 2014) * Plavix 75mg daily 7) History of Gastritis * Pantoprazole 40mg dialy 8) History of Depression * Fluoxetine 20mg PO daily 9) Prophylaxis * Protonix 40mg PO daily * Xarelto 10mg dialy * SCDs * PT eval and treat * OT eval Case discussed with Dr. Vamsi Bridges PGY-2
[2018-02-13] MEDS: Pantoprazole 40 mg EC Tab PO SCH (11:16)
--- NOTE | 2018-02-13 18:37 | CARD ---
APPROVED REPORT EXAM: Two-dimensional and M-mode echocardiogram with Doppler and color Doppler. Other Information Quality : Technically LimitedRhythm : NSR INDICATION Dyspnea Atrial Fibrillation tavr Surgery/Intervention Pacemaker: RISK FACTORS Hypertension 2D DIMENSIONS LVOT Diameter2.0 (1.8-2.4cm) M-Mode DIMENSIONS RVDd1.44 (2.1-3.2cm)IVSd1.64 (0.7-1.1cm) LVDd8.00 (4.0-5.6cm)FS (%) 26 % LVDs5.93 (2.0-3.8cm)LVEF (%)49 (>50%) Aortic Valve AoV Peak Oqpmzxzt497.7cm/Young Peak GR.4mmHgLVOT Peak Dzcmuvgf60.9cm/s SANGITA (VMAX)1.51fw4SN P 1/2 Cyqp957so Mitral Valve MV E Akldwlzk340.4cm/sMV A Iilclalj19.9cm/sE/A ratio2.8 TDI E/Lateral E'0.0E/Medial E'0.0 Tricuspid Valve TR Peak Tdcdzqfl944jm/sTR Peak Gr.98xiZbNGOF90svMg LEFT VENTRICLE The Left Ventricle is severely dilated. There is mild asymmetric left ventricular hypertrophy. Left ventricle systolic function is mildly impaired. The Ejection Fraction is 40-45%. There is global hypokinesis of the left ventricle. The left ventricular diastolic function is normal. No left ventricle thrombus noted on this study. RIGHT VENTRICLE The right ventricle is normal size. The right ventricular systolic function is normal. ATRIA The left atrium is moderately dilated. The right atrium is moderately dilated. AORTIC VALVE The aortic valve is not well visualized. There is trace aortic regurgitation. Calculated aortic valve area is 1.6 cm2 with maximum pressure gradient of 4 mmHg and mean pressure gradient of mmHg. Cannot exclude aortic valvular vegetation. MITRAL VALVE Mitral annular calcification is mild to moderate. There is no evidence of mitral valve prolapse. Mitral regurgitation is mild. TRICUSPID VALVE The tricuspid valve is normal in structure. There is mild tricuspid regurgitation. Right ventricular systolic pressure is estimated at less than 30 mmHg. There is no pulmonary hypertension. There is no tricuspid valve prolapse or vegetation. There is no tricuspid valve stenosis. PULMONIC VALVE The pulmonary valve is normal in structure. There is no pulmonic valvular regurgitation. GREAT VESSELS The aortic root is normal in size. The IVC is normal in size and collapses >50% with inspiration. PERICARDIAL EFFUSION There is no pericardial effusion. There is no pleural effusion. <Conclusion> Technically difficult and limited study. The Left Ventricle is severely dilated. There is mild asymmetric left ventricular hypertrophy. Left ventricle systolic function is mildly impaired. The Ejection Fraction is 40-45%. There is global hypokinesis of the left ventricle. The left ventricular diastolic function is normal. The right ventricle is normal size. The right ventricular systolic function is normal. The left atrium is moderately dilated. The right atrium is moderately dilated. There is trace aortic regurgitation. Calculated aortic valve area is 1.6 cm2 with maximum pressure gradient of 4 mmHg and mean pressure gradient of mmHg. Mitral regurgitation is mild to moderate. There is mild tricuspid regurgitation.
--- NOTE | 2018-02-13 22:26 | CARD ---
APPROVED REPORT EKG Measurement Heart [id number] <Conclusion> Atrial fibrillation Left axis deviation Left bundle branch block Abnormal ECG
--- NOTE | 2018-02-13 23:08 | CP.PCM.PN ---
Subjective - Date & Time of Evaluation Date of Evaluation: 02/13/18 Time of Evaluation: 18:05 - Subjective Subjective: Patient seen and evaluated Patient refused MUGA this rafa Will try tomorrow Review of Systems - Constitutional Constitutional: Weakness. absent: Chills, Fever, Weight Gain, Weight Loss - Cardiovascular Cardiovascular: Dyspnea, Dyspnea on Exertion, Lightheadedness. absent: Chest Pain, Leg Edema, Palpitations, Pedal Edema - Respiratory Respiratory: Dyspnea. absent: Cough - Gastrointestinal Gastrointestinal: absent: Abdominal Pain, Constipation, Diarrhea, Nausea, Vomiting - Genitourinary Genitourinary: absent: Dysuria, Hematuria - Musculoskeletal Musculoskeletal: absent: Numbness, Stiffness - Neurological Neurological: Weakness. absent: Dizziness, Headaches, Tingling Physical Exam - Constitutional Appears: No Acute Distress - Head Exam Head Exam: ATRAUMATIC, NORMAL INSPECTION - Eye Exam Eye Exam: EOMI, Normal appearance, PERRL. absent: Scleral icterus Pupil Exam: NORMAL ACCOMODATION - ENT Exam ENT Exam: Mucous Membranes Moist - Neck Exam Neck exam: Negative for: Lymphadenopathy Additional comments: left side of his mandible - palpable cyst - Respiratory Exam Respiratory Exam: Clear to Auscultation Bilateral, NORMAL BREATHING PATTERN. absent: Rales, Rhonchi, Wheezes, Stridor - Cardiovascular Exam Cardiovascular Exam: Irregular Rhythm. absent: JVD - GI/Abdominal Exam GI & Abdominal Exam: Normal Bowel Sounds, Soft. absent: Tenderness - Extremities Exam Extremities exam: Positive for: normal capillary refill, pedal pulses present. Negative for: joint swelling, normal inspection (left heel ulcer ), pedal edema , tenderness - Neurological Exam Neurological exam: Alert, CN II-XII Intact, Oriented x3 - Psychiatric Exam Psychiatric exam: Normal Affect, Normal Mood - Skin Skin Exam: Normal Color Objective - Vital Signs/Intake and Output Vital Signs (last 24 hours): Temp Pulse Resp BP Pulse Ox 97.7 F 84 20 126/75 95 02/13/18 15:02 02/13/18 16:00 02/13/18 15:02 02/13/18 15:02 02/13/18 15:02 Intake and Output: 02/13/18 02/14/18 18:59 06:59 Intake Total 300 480 Output Total 1000 Balance -700 480 - Medications Medications: Current Medications Acetaminophen (Tylenol 325mg Tab) 650 mg PO HS [facility] Last Admin: 02/13/18 21:07 Dose: 650 mg Albuterol/Ipratropium (Duoneb 3 Mg/0.5 Mg (3 Ml) Ud) 3 ml INH RQ4 PRN PRN Reason: Shortness of Breath Alprazolam (Xanax) 0.25 mg PO DAILY PRN PRN Reason: Anxiety Stop: 02/21/18 23:59 Clopidogrel Bisulfate (Plavix) 75 mg PO DAILY [facility] Last Admin: 02/13/18 11:16 Dose: 75 mg Fluoxetine HCl (Prozac) 20 mg PO DAILY [facility] Last Admin: 02/13/18 11:15 Dose: 20 mg Furosemide (Lasix) 40 mg PO DAILY [facility] Last Admin: 02/13/18 11:15 Dose: 40 mg Losartan Potassium (Cozaar) 25 mg PO DAILY [facility] Last Admin: 02/13/18 11:15 Dose: 25 mg Metoprolol Tartrate (Lopressor) 75 mg PO DAILY [facility] Last Admin: 02/13/18 11:16 Dose: 75 mg Pantoprazole Sodium (Protonix Ec Tab) 40 mg PO DAILY [facility] Last Admin: 02/13/18 11:16 Dose: 40 mg Rivaroxaban (Xarelto) 10 mg PO DAILY [facility] Last Admin: 02/13/18 11:15 Dose: 10 mg Rosuvastatin Calcium (Crestor) 5 mg PO [facility] Last Admin: 02/13/18 21:07 Dose: 5 mg - Labs Labs: 02/13/18 07:04 02/13/18 07:04 PT 19.0 SECONDS (9.7-12.2) H 02/11/18 17:20 INR 1.7 02/11/18 17:20 APTT 45 SECONDS (21-34) H 02/11/18 17:20 Assessment and Plan - Assessment and Plan (Free Text) Assessment: 1) Dyspnea Assessment/Plan * Monitor on telemetry * Pertinent positive: s/p TAVR (2014), Atrial fibrillation (on AC), Pacemaker , Smoking history * Pacemaker placed in 03/2015 - last interrogated was last week, reports his quantity surveyor Dr Byrd told him at that time there was an issue with his pacemaker. Pacer interrogated 02/12 and stated it is working well. He also spoke to Dr. Vu. * Concern for arrhythmia given low ejection fraction when I spoke with his quantity surveyor; he has completed holter this past week; Dr Lai spoke with Dr Byrd in regards to Holter machine--> no ventricular tachyarrythmia noted. * Duonebs PRN shortness of breathe * D-dimer: negative * Elevated probnp * Troponin X3 2) Atrial Fibrillation Assessment/Plan * CHADS: 3 * Patient is on Xarelto 10mg PO daily * Metoprolol Tartrate 75mg PO daily * Patient's outpatient quantity surveyor, Dr. hawk byrd, does not come here--->Dr Lai spoke with Dr Byrd in regards to Holter machine--> no ventricular tachyarrythmia noted. 3) History of Aortic Stenosis s/p TAVR 2014 Coronary Artery Disease + Stent History of Pacemaker Cardiomyopathy Assessment/Plan * monitor on telemetry * Patient's outpatient quantity surveyor, Dr. Hawk Byrd, does not come here---> will f/u holter (see notes above) * BNP 1938 * Measure daily weights, Is/Os Imaging: * Echo 02/13 - technically difficult and limited study, LV severely dialted, mild asymmetric left ventricular hypertrophy, left ventricle systolic function mildly impaired, EF 40%, global hypokinesis of left ventricle, left ventricle diastolic function is normal (see full report) * MUGA 02/14 - EF 29% * As per cardio - patient is for AICD upgrade - to go to [facility] 02/15 for AICD placement - unsure at this time if patient will return from [facility] or be discharged from [facility]. * Continue home medications * Lopressor 75mg daily * Crestor 5mg POqHS * Lasix 40mg po daily 4) Hypertension Assessment/Plan * Monitor vital signs * Cozaar 25mg daily * Lopressor 75mg daily * Lasix 40mg po qd 5) Left heel ulcer Assessment/Plan * Patient's private medical technician, Dr Kenney who he sees routinely for Darkin solution * Daily dressing changes 6) Peripheral Vascular Disease Assessment/Plan * 2 veins removed in his left lower extremity (10/2017 and 2014) * Plavix 75mg daily 7) History of Gastritis * Pantoprazole 40mg dialy 8) History of Depression * Fluoxetine 20mg PO daily 9) Lipomas? * Roughly 4 cm round smooth freely movable soft nontender mass present in the superior left posterior shoulder area. * Roughly 2 cm round smooth freely movable soft nontender mass present at the angle of left mandible. * Should be followed up/monitored by patient's PMD 10) Prophylaxis * Protonix 40mg PO daily * Xarelto 10mg dialy * SCDs * PT eval and treat * OT eval
[2018-02-14 06:43] LABS: BASO # 0.1 K/uL (0.0-0.2); BASO % 0.7 % (0.0-2.0); EOS # 0.3 K/uL (0.0-0.7); EOS % 3.7 % (0.0-4.0); HEMOGLOBIN 16.8 g/dL (12.0-18.0); LYMPH # 0.8 K/uL (1.0-4.3); LYMPH % 10.5 % (20.0-40.0); MEAN CELL VOLUME 96.4 fL (80.0-94.0); MEAN CORPUSCULAR HEMOGLOBIN 33.3 pg (27.0-31.0); MEAN CORPUSCULAR HGB CONC 34.5 g/dL (33.0-37.0); MEAN PLATELET VOLUME 8.2 fL (7.2-11.7); MONO % 13.7 % (0.0-10.0); NEUT # 5.2 K/uL (1.8-7.0); NEUT % 71.4 % (50.0-75.0); NRBC % 0.1 % (0.0-2.0); RBC 5.05 Mil/uL (4.40-5.90); RED CELL DISTRIBUTION WIDTH 14.3 % (11.5-14.5); WHITE BLOOD COUNT 7.3 K/uL (4.8-10.8)
[2018-02-14 07:38] LABS: ALB/GLOB RATIO 1.2 (1.0-2.1); ALBUMIN 4.4 g/dL (3.5-5.0); ALT/SGPT 35 U/L (21-72); AST/SGOT 46 U/L (17-59); BLOOD UREA NITROGEN 32 mg/dL (9-20); CALCIUM 9.5 mg/dl (8.6-10.4); GFR AFRICAN-AMERICAN > 60; GFR NON-AFRICAN AMERICAN > 60
[2018-02-14] MEDS: Pantoprazole 40 mg EC Tab PO SCH (10:04)
--- NOTE | 2018-02-14 14:14 | CARD ---
APPROVED REPORT INDICATION Cardiomyopathy PROCEDURE The above named patient recieved 24.2 millicuries of Tc99m tagged red blood cells intravenously. After achieving equilibrium, gated imaging of 16/frame/cycle was performed utillizing Gamma camera interfaced with a digital computer and gated device. Gated imaging was then performed in the left anterior oblique, anterior, and the left lateral projections. Findings Calculated LV Ejection Fraction is 29%. Normal Ejection Fraction for this facility is 55%. Impressions Abnormal LIANA study. Calculated Ejection Fraction is 29 %.
--- NOTE | 2018-02-14 17:14 | CP.PCM.PN ---
<Edgar Bridges - Last Filed: 02/14/18 17:58> Subjective - Date & Time of Evaluation Date of Evaluation: 02/14/18 Time of Evaluation: 11:00 - Subjective Subjective: PGY-[address] Vamsi Negrete. No acute events noted overnight. Patient did not offer any complaints. Stated his sob had improved. Inquired about the timing of the MUGA scan. Stated he felt okay to do it, stated the xanax he received this morning was helping his anxiety. Objective - Vital Signs/Intake and Output Vital Signs (last 24 hours): Temp Pulse Resp BP Pulse Ox 97.4 F L 78 20 114/77 95 02/14/18 15:00 02/14/18 15:00 02/14/18 15:00 02/14/18 15:00 02/14/18 15:00 Intake and Output: 02/14/18 02/14/18 06:59 18:59 Intake Total 480 Output Total 100 Balance 380 - Medications Medications: Current Medications Acetaminophen (Tylenol 325mg Tab) 650 mg PO [facility] Last Admin: 02/13/18 21:07 Dose: 650 mg Albuterol/Ipratropium (Duoneb 3 Mg/0.5 Mg (3 Ml) Ud) 3 ml INH RQ4 PRN PRN Reason: Shortness of Breath Alprazolam (Xanax) 0.25 mg PO DAILY PRN PRN Reason: Anxiety Stop: 02/21/18 23:59 Last Admin: 02/14/18 07:24 Dose: 0.25 mg Clopidogrel Bisulfate (Plavix) 75 mg PO DAILY [facility] Last Admin: 02/14/18 10:05 Dose: 75 mg Fluoxetine HCl (Prozac) 20 mg PO DAILY [facility] Last Admin: 02/14/18 10:05 Dose: 20 mg Furosemide (Lasix) 40 mg PO DAILY [facility] Last Admin: 02/14/18 10:04 Dose: 40 mg Losartan Potassium (Cozaar) 25 mg PO DAILY [facility] Last Admin: 02/14/18 10:05 Dose: 25 mg Metoprolol Tartrate (Lopressor) 75 mg PO DAILY [facility] Last Admin: 02/14/18 10:05 Dose: 75 mg Pantoprazole Sodium (Protonix Ec Tab) 40 mg PO DAILY [facility] Last Admin: 02/14/18 10:04 Dose: 40 mg Rivaroxaban (Xarelto) 10 mg PO DAILY [facility] Last Admin: 02/14/18 10:05 Dose: 10 mg Rosuvastatin Calcium (Crestor) 5 mg PO HS [facility] Last Admin: 02/13/18 21:07 Dose: 5 mg - Labs Labs: 02/14/18 06:34 02/14/18 06:34 PT 19.0 SECONDS (9.7-12.2) H 02/11/18 17:20 INR 1.7 02/11/18 17:20 APTT 45 SECONDS (21-34) H 02/11/18 17:20 - Additional Findings Additional findings: - Constitutional Appears: No Acute Distress - Head Exam Head Exam: ATRAUMATIC, NORMAL INSPECTION - Eye Exam Eye Exam: EOMI, Normal appearance, PERRL. absent: Scleral icterus Pupil Exam: NORMAL ACCOMODATION - ENT Exam ENT Exam: Mucous Membranes Moist - Neck Exam Neck exam: Negative for: Lymphadenopathy Additional comments: left side of his mandible - palpable cyst - Respiratory Exam Respiratory Exam: Clear to Auscultation Bilateral, NORMAL BREATHING PATTERN. absent: Rales, Rhonchi, Wheezes, Stridor - Cardiovascular Exam Cardiovascular Exam: Irregular Rhythm. absent: JVD - GI/Abdominal Exam GI & Abdominal Exam: Normal Bowel Sounds, Soft. absent: Tenderness - Extremities Exam Extremities exam: Positive for: normal capillary refill, pedal pulses present. Negative for: joint swelling, normal inspection (left heel ulcer ), pedal edema , tenderness venous ulcer measurements are 5 x 2.3 x 0.5 cm. - Neurological Exam Neurological exam: Alert, CN II-XII Intact, Oriented x3 - Psychiatric Exam Psychiatric exam: Normal Affect, Normal Mood - Skin Skin Exam: Normal Color Assessment and Plan - Assessment and Plan (Free Text) Assessment: 1) Dyspnea Assessment/Plan * Monitor on telemetry * Pertinent positive: s/p TAVR (2014), Atrial fibrillation (on AC), Pacemaker , Smoking history * Pacemaker placed in 03/2015 - last interrogated was last week, reports his road grader Dr Byrd told him at that time there was an issue with his pacemaker. Pacer interrogated 02/12 and stated it is working well. He also spoke to Dr. Vu. * Concern for arrhythmia given low ejection fraction when I spoke with his road grader; he has completed holter this past week; Dr Lai spoke with Dr Byrd in regards to Holter machine--> no ventricular tachyarrythmia noted. * Duonebs PRN shortness of breathe * D-dimer: negative * Elevated probnp * Troponin X3 2) Atrial Fibrillation Assessment/Plan * CHADS: 3 * Patient is on Xarelto 10mg PO daily * Metoprolol Tartrate 75mg PO daily * Patient's outpatient road grader, Dr. hawk byrd, does not come here--->Dr Lai spoke with Dr Byrd in regards to Holter machine--> no ventricular tachyarrythmia noted. * consult cardiology, Dr Vu 3) History of Aortic Stenosis s/p TAVR 2014 Coronary Artery Disease + Stent History of Pacemaker Cardiomyopathy Assessment/Plan * monitor on telemetry * Patient's outpatient road grader, Dr. Hawk Byrd, does not come here---> will f/u holter (see notes above) * consult cardiology, Dr. Vu * BNP 1938 * Measure daily weights, Is/Os Imaging: * Echo 02/13 - technically difficult and limited study, LV severely dialted, mild asymmetric left ventricular hypertrophy, left ventricle systolic function mildly impaired, EF 40%, global hypokinesis of left ventricle, left ventricle diastolic function is normal (see full report) * MUGA 02/14 - EF 29% * Continue home medications * Lopressor 75mg daily * Crestor 5mg POqHS * Lasix 40mg po daily 4) Hypertension Assessment/Plan * Monitor vital signs * Cozaar 25mg daily * Lopressor 75mg daily * Lasix 40mg po qd 5) Left heel ulcer Assessment/Plan * Patient's private road worker, Dr Kenney who he sees routinely for Darkin solution * Daily dressing changes 6) Peripheral Vascular Disease Assessment/Plan * 2 veins removed in his left lower extremity (10/2017 and 2014) * Plavix 75mg daily 7) History of Gastritis * Pantoprazole 40mg dialy 8) History of Depression * Fluoxetine 20mg PO daily 9) Prophylaxis * Protonix 40mg PO daily * Xarelto 10mg dialy * SCDs * PT eval and treat * OT eval Case discussed with Dr. Vamsi Bridges PGY-2 <Yeyo Negrete - Last Filed: 02/14/18 23:47> Objective - Vital Signs/Intake and Output Vital Signs (last 24 hours): Temp Pulse Resp BP Pulse Ox 97.4 F L 75 20 114/77 95 02/14/18 15:00 02/14/18 16:00 02/14/18 15:00 02/14/18 15:00 02/14/18 15:00 Intake and Output: 02/14/18 02/15/18 18:59 06:59 Intake Total 400 Balance 400 - Medications Medications: Current Medications Acetaminophen (Tylenol 325mg Tab) 650 mg PO HS [facility] Last Admin: 02/14/18 21:47 Dose: 650 mg Albuterol/Ipratropium (Duoneb 3 Mg/0.5 Mg (3 Ml) Ud) 3 ml INH RQ4 PRN PRN Reason: Shortness of Breath Alprazolam (Xanax) 0.25 mg PO DAILY PRN PRN Reason: Anxiety Stop: 02/21/18 23:59 Last Admin: 02/14/18 07:24 Dose: 0.25 mg Clopidogrel Bisulfate (Plavix) 75 mg PO DAILY [facility] Last Admin: 02/14/18 10:05 Dose: 75 mg Fluoxetine HCl (Prozac) 20 mg PO DAILY [facility] Last Admin: 02/14/18 10:05 Dose: 20 mg Furosemide (Lasix) 40 mg PO DAILY [facility] Last Admin: 02/14/18 10:04 Dose: 40 mg Losartan Potassium (Cozaar) 25 mg PO DAILY [facility] Last Admin: 02/14/18 10:05 Dose: 25 mg Metoprolol Tartrate (Lopressor) 75 mg PO DAILY [facility] Last Admin: 02/14/18 10:05 Dose: 75 mg Pantoprazole Sodium (Protonix Ec Tab) 40 mg PO DAILY [facility] Last Admin: 02/14/18 10:04 Dose: 40 mg Rivaroxaban (Xarelto) 10 mg PO DAILY [facility] Last Admin: 02/14/18 10:05 Dose: 10 mg Rosuvastatin Calcium (Crestor) 5 mg PO HS [facility] Last Admin: 02/14/18 21:47 Dose: 5 mg - Labs Labs: 02/14/18 06:34 02/14/18 06:34 PT 19.0 SECONDS (9.7-12.2) H 02/11/18 17:20 INR 1.7 02/11/18 17:20 APTT 45 SECONDS (21-34) H 02/11/18 17:20 Attending/Attestation - Attestation I have personally seen and examined this patient.: Yes I have fully participated in the care of the patient.: Yes I have reviewed all pertinent clinical information, including history, physical exam and plan: Yes Notes (Text): 02/14/18 23:44 Patient was seen and examined at 5:30 PM Exam, assessment and plan were gone over with Resident. MUG Scan shows EF of 29%: does patient need AICD? Already has pacemaker. Patient will need transfer to TCU once plan is in place by Cardiology concerning the results of the MUGA Scan. Yeyo Negrete D.O.
--- NOTE | 2018-02-15 00:20 | CP.PCM.PN ---
Subjective - Date & Time of Evaluation Date of Evaluation: 02/14/18 Time of Evaluation: 14:05 - Subjective Subjective: Patient seen and evaluated denies chest pain and dyspnea MUGA scan shows EF of 29% patient for AICD upgrade Continue CHF management Review of Systems - Constitutional Constitutional: Weakness. absent: Chills, Fever, Weight Gain, Weight Loss - Cardiovascular Cardiovascular: Dyspnea, Dyspnea on Exertion, Lightheadedness. absent: Chest Pain, Leg Edema, Palpitations, Pedal Edema - Respiratory Respiratory: Dyspnea. absent: Cough - Gastrointestinal Gastrointestinal: absent: Abdominal Pain, Constipation, Diarrhea, Nausea, Vomiting - Genitourinary Genitourinary: absent: Dysuria, Hematuria - Musculoskeletal Musculoskeletal: absent: Numbness, Stiffness - Neurological Neurological: Weakness. absent: Dizziness, Headaches, Tingling Physical Exam - Constitutional Appears: No Acute Distress - Head Exam Head Exam: ATRAUMATIC, NORMAL INSPECTION - Eye Exam Eye Exam: EOMI, Normal appearance, PERRL. absent: Scleral icterus Pupil Exam: NORMAL ACCOMODATION - ENT Exam ENT Exam: Mucous Membranes Moist - Neck Exam Neck exam: Negative for: Lymphadenopathy Additional comments: left side of his mandible - palpable cyst - Respiratory Exam Respiratory Exam: Clear to Auscultation Bilateral, NORMAL BREATHING PATTERN. absent: Rales, Rhonchi, Wheezes, Stridor - Cardiovascular Exam Cardiovascular Exam: Irregular Rhythm. absent: JVD - GI/Abdominal Exam GI & Abdominal Exam: Normal Bowel Sounds, Soft. absent: Tenderness - Extremities Exam Extremities exam: Positive for: normal capillary refill, pedal pulses present. Negative for: joint swelling, normal inspection (left heel ulcer ), pedal edema , tenderness - Neurological Exam Neurological exam: Alert, CN II-XII Intact, Oriented x3 - Psychiatric Exam Psychiatric exam: Normal Affect, Normal Mood - Skin Skin Exam: Normal Color Objective - Vital Signs/Intake and Output Vital Signs (last 24 hours): Temp Pulse Resp BP Pulse Ox 97.4 F L 75 20 114/77 95 02/14/18 15:00 02/14/18 16:00 02/14/18 15:00 02/14/18 15:00 02/14/18 15:00 Intake and Output: 02/14/18 02/15/18 18:59 06:59 Intake Total 400 Balance 400 - Medications Medications: Current Medications Acetaminophen (Tylenol 325mg Tab) 650 mg PO HS [facility] Last Admin: 02/14/18 21:47 Dose: 650 mg Albuterol/Ipratropium (Duoneb 3 Mg/0.5 Mg (3 Ml) Ud) 3 ml INH RQ4 PRN PRN Reason: Shortness of Breath Alprazolam (Xanax) 0.25 mg PO DAILY PRN PRN Reason: Anxiety Stop: 02/21/18 23:59 Last Admin: 02/14/18 07:24 Dose: 0.25 mg Clopidogrel Bisulfate (Plavix) 75 mg PO DAILY [facility] Last Admin: 02/14/18 10:05 Dose: 75 mg Fluoxetine HCl (Prozac) 20 mg PO DAILY [facility] Last Admin: 02/14/18 10:05 Dose: 20 mg Furosemide (Lasix) 40 mg PO DAILY [facility] Last Admin: 02/14/18 10:04 Dose: 40 mg Losartan Potassium (Cozaar) 25 mg PO DAILY [facility] Last Admin: 02/14/18 10:05 Dose: 25 mg Metoprolol Tartrate (Lopressor) 75 mg PO DAILY [facility] Last Admin: 02/14/18 10:05 Dose: 75 mg Pantoprazole Sodium (Protonix Ec Tab) 40 mg PO DAILY [facility] Last Admin: 02/14/18 10:04 Dose: 40 mg Rivaroxaban (Xarelto) 10 mg PO DAILY [facility] Last Admin: 02/14/18 10:05 Dose: 10 mg Rosuvastatin Calcium (Crestor) 5 mg PO HS [facility] Last Admin: 02/14/18 21:47 Dose: 5 mg - Labs Labs: 02/14/18 06:34 02/14/18 06:34 PT 19.0 SECONDS (9.7-12.2) H 02/11/18 17:20 INR 1.7 02/11/18 17:20 APTT 45 SECONDS (21-34) H 02/11/18 17:20 Assessment and Plan - Assessment and Plan (Free Text) Assessment: 1) Dyspnea Assessment/Plan * Monitor on telemetry * Pertinent positive: s/p TAVR (2014), Atrial fibrillation (on AC), Pacemaker , Smoking history * Pacemaker placed in 03/2015 - last interrogated was last week, reports his space engineer Dr Byrd told him at that time there was an issue with his pacemaker. Pacer interrogated 02/12 and stated it is working well. He also spoke to Dr. Vu. * Concern for arrhythmia given low ejection fraction when I spoke with his space engineer; he has completed holter this past week; Dr Lai spoke with Dr Byrd in regards to Holter machine--> no ventricular tachyarrythmia noted. * Duonebs PRN shortness of breathe * D-dimer: negative * Elevated probnp * Troponin X3 2) Atrial Fibrillation Assessment/Plan * CHADS: 3 * Patient is on Xarelto 10mg PO daily * Metoprolol Tartrate 75mg PO daily * Patient's outpatient space engineer, Dr. hawk byrd, does not come here--->Dr Lai spoke with Dr Byrd in regards to Holter machine--> no ventricular tachyarrythmia noted. 3) History of Aortic Stenosis s/p TAVR 2014 Coronary Artery Disease + Stent History of Pacemaker Cardiomyopathy Assessment/Plan * monitor on telemetry * Patient's outpatient space engineer, Dr. Hawk Byrd, does not come here---> will f/u holter (see notes above) * BNP 1938 * Measure daily weights, Is/Os Imaging: * Echo 02/13 - technically difficult and limited study, LV severely dialted, mild asymmetric left ventricular hypertrophy, left ventricle systolic function mildly impaired, EF 40%, global hypokinesis of left ventricle, left ventricle diastolic function is normal (see full report) * MUGA 02/14 - EF 29% * As per cardio - patient is for AICD upgrade - to go to [place] 02/15 for AICD placement - unsure at this time if patient will return from [facility] or be discharged from [facility]. * Continue home medications * Lopressor 75mg daily * Crestor 5mg POqHS * Lasix 40mg po daily 4) Hypertension Assessment/Plan * Monitor vital signs * Cozaar 25mg daily * Lopressor 75mg daily * Lasix 40mg po qd 5) Left heel ulcer Assessment/Plan * Patient's private middle school guidance counselor, Dr Kenney who he sees routinely for Darkin solution * Daily dressing changes 6) Peripheral Vascular Disease Assessment/Plan * 2 veins removed in his left lower extremity (10/2017 and 2014) * Plavix 75mg daily 7) History of Gastritis * Pantoprazole 40mg dialy 8) History of Depression * Fluoxetine 20mg PO daily 9) Lipomas? * Roughly 4 cm round smooth freely movable soft nontender mass present in the superior left posterior shoulder area. * Roughly 2 cm round smooth freely movable soft nontender mass present at the angle of left mandible. * Should be followed up/monitored by patient's PMD 10) Prophylaxis * Protonix 40mg PO daily * Xarelto 10mg dialy * SCDs * PT eval and treat * OT eval
--- NOTE | 2018-02-15 03:02 | CP.PCM.PCO ---
Physician Communication Note - Physician Communication Note Physician Communication Note: Please see above
[2018-02-15 06:40] LABS: BASO % 0.6 % (0.0-2.0); EOS # 0.3 K/uL (0.0-0.7); EOS % 4.7 % (0.0-4.0); HEMOGLOBIN 16.6 g/dL (12.0-18.0); LYMPH # 0.7 K/uL (1.0-4.3); MEAN CELL VOLUME 96.5 fL (80.0-94.0); MEAN CORPUSCULAR HGB CONC 34.2 g/dL (33.0-37.0); MEAN PLATELET VOLUME 8.3 fL (7.2-11.7); MONO # 0.9 K/uL (0.0-0.8); MONO % 13.9 % (0.0-10.0); NEUT # 4.3 K/uL (1.8-7.0); NEUT % 68.8 % (50.0-75.0); RBC 5.03 Mil/uL (4.40-5.90); RED CELL DISTRIBUTION WIDTH 14.6 % (11.5-14.5); WHITE BLOOD COUNT 6.2 K/uL (4.8-10.8)
[2018-02-15 06:56] LABS: ALB/GLOB RATIO 1.1 (1.0-2.1); ALBUMIN 4.2 g/dL (3.5-5.0); ALT/SGPT 46 U/L (21-72); AST/SGOT 54 U/L (17-59); BLOOD UREA NITROGEN 29 mg/dL (9-20); CALCIUM 9.3 mg/dl (8.6-10.4); GFR AFRICAN-AMERICAN > 60; GFR NON-AFRICAN AMERICAN > 60
--- NOTE | 2018-02-15 07:06 | CP.PCM.PN ---
<Edgar Bridges - Last Filed: 02/15/18 11:05> Subjective - Date & Time of Evaluation Date of Evaluation: 02/15/18 Time of Evaluation: 07:02 - Subjective Subjective: PGY-[address] Bedoya. No acute events noted overnight. Patient with MUGA scan yesterday which showed EF of 29% - patient now needs AICD upgrade. Patient denied chest pain, palpitations, shortness of breath today. He understood he will go for AICD placement at [facility] today as this is needed to protect him from an arrythmia. He did not offer any complaints - his only concern was letting family know he is going to [facility] (nursing called his niece Cassidy). Objective - Vital Signs/Intake and Output Vital Signs (last 24 hours): Temp Pulse Resp BP Pulse Ox 97.2 F L 84 20 140/94 H 95 02/14/18 23:45 02/14/18 23:45 02/14/18 23:45 02/14/18 23:45 02/14/18 23:45 Intake and Output: 02/15/18 02/15/18 06:59 18:59 Intake Total 400 Balance 400 - Medications Medications: Current Medications Acetaminophen (Tylenol 325mg Tab) 650 mg PO [facility] Last Admin: 02/14/18 21:47 Dose: 650 mg Albuterol/Ipratropium (Duoneb 3 Mg/0.5 Mg (3 Ml) Ud) 3 ml INH RQ4 PRN PRN Reason: Shortness of Breath Alprazolam (Xanax) 0.25 mg PO DAILY PRN PRN Reason: Anxiety Stop: 02/21/18 23:59 Last Admin: 02/14/18 07:24 Dose: 0.25 mg Clopidogrel Bisulfate (Plavix) 75 mg PO DAILY [facility] Last Admin: 02/14/18 10:05 Dose: 75 mg Fluoxetine HCl (Prozac) 20 mg PO DAILY [facility] Last Admin: 02/14/18 10:05 Dose: 20 mg Furosemide (Lasix) 40 mg PO DAILY [facility] Last Admin: 02/14/18 10:04 Dose: 40 mg Losartan Potassium (Cozaar) 25 mg PO DAILY [facility] Last Admin: 02/14/18 10:05 Dose: 25 mg Metoprolol Tartrate (Lopressor) 75 mg PO DAILY [facility] Last Admin: 02/14/18 10:05 Dose: 75 mg Pantoprazole Sodium (Protonix Ec Tab) 40 mg PO DAILY [facility] Last Admin: 02/14/18 10:04 Dose: 40 mg Rivaroxaban (Xarelto) 10 mg PO DAILY [facility] Last Admin: 02/14/18 10:05 Dose: 10 mg Rosuvastatin Calcium (Crestor) 5 mg PO HS [facility] Last Admin: 02/14/18 21:47 Dose: 5 mg - Labs Labs: 02/15/18 06:34 02/15/18 06:34 PT 19.0 SECONDS (9.7-12.2) H 02/11/18 17:20 INR 1.7 02/11/18 17:20 APTT 45 SECONDS (21-34) H 02/11/18 17:20 - Additional Findings Additional findings: - Constitutional Appears: No Acute Distress - Head Exam Head Exam: ATRAUMATIC, NORMAL INSPECTION - Eye Exam Eye Exam: EOMI, Normal appearance, PERRL. absent: Scleral icterus Pupil Exam: NORMAL ACCOMODATION - ENT Exam ENT Exam: Mucous Membranes Moist - Neck Exam Neck exam: Negative for: Lymphadenopathy Additional comments: Roughly 2 cm round smooth freely movable soft nontender mass present at the angle of left mandible. - Respiratory Exam Respiratory Exam: Clear to Auscultation Bilateral, NORMAL BREATHING PATTERN. absent: Rales, Rhonchi, Wheezes, Stridor - Cardiovascular Exam Cardiovascular Exam: Irregular Rhythm. absent: JVD - GI/Abdominal Exam GI & Abdominal Exam: Normal Bowel Sounds, Soft. absent: Tenderness - Extremities Exam Extremities exam: Positive for: normal capillary refill, pedal pulses present. Negative for: joint swelling, normal inspection (left heel ulcer ), pedal edema , tenderness venous ulcer measurements are 5 x 2.3 x 0.5 cm. Roughly 4 cm round smooth freely movable soft nontender mass present in the superior left posterior shoulder area. - Neurological Exam Neurological exam: Alert, CN II-XII Intact, Oriented x3 - Psychiatric Exam Psychiatric exam: Normal Affect, Normal Mood - Skin Skin Exam: Normal Color Assessment and Plan - Assessment and Plan (Free Text) Assessment: 1) Dyspnea Assessment/Plan * Monitor on telemetry * Pertinent positive: s/p TAVR (2014), Atrial fibrillation (on AC), Pacemaker , Smoking history * Pacemaker placed in 03/2015 - last interrogated was last week, reports his pipe fitter gas pipe Dr Byrd told him at that time there was an issue with his pacemaker. Pacer interrogated 02/12 and stated it is working well. He also spoke to Dr. Vu. * Concern for arrhythmia given low ejection fraction when I spoke with his pipe fitter gas pipe; he has completed holter this past week; Dr Lai spoke with Dr Byrd in regards to Holter machine--> no ventricular tachyarrythmia noted. * Duonebs PRN shortness of breathe * D-dimer: negative * Elevated probnp * Troponin X3 2) Atrial Fibrillation Assessment/Plan * CHADS: 3 * Patient is on Xarelto 10mg PO daily * Metoprolol Tartrate 75mg PO daily * Patient's outpatient pipe fitter gas pipe, Dr. hawk byrd, does not come here--->Dr Lai spoke with Dr Byrd in regards to Holter machine--> no ventricular tachyarrythmia noted. * consult cardiology, Dr Vu 3) History of Aortic Stenosis s/p TAVR 2014 Coronary Artery Disease + Stent History of Pacemaker Cardiomyopathy Assessment/Plan * monitor on telemetry * Patient's outpatient pipe fitter gas pipe, Dr. Hawk Byrd, does not come here---> will f/u holter (see notes above) * consult cardiology, Dr. Vu * BNP 1937 * Measure daily weights, Is/Os Imaging: * Echo 02/13 - technically difficult and limited study, LV severely dialted, mild asymmetric left ventricular hypertrophy, left ventricle systolic function mildly impaired, EF 40%, global hypokinesis of left ventricle, left ventricle diastolic function is normal (see full report) * MUGA 02/14 - EF 29% * As per cardio - patient is for AICD upgrade - to go to [place] 02/15 for AICD placement - unsure at this time if patient will return from [facility] or be discharged from [facility]. * Continue home medications * Lopressor 75mg daily * Crestor 5mg POqHS * Lasix 40mg po daily 4) Hypertension Assessment/Plan * Monitor vital signs * Cozaar 25mg daily * Lopressor 75mg daily * Lasix 40mg po qd 5) Left heel ulcer Assessment/Plan * Patient's private chief scientific officer, Dr Kenney who he sees routinely for Darkin solution * Daily dressing changes 6) Peripheral Vascular Disease Assessment/Plan * 2 veins removed in his left lower extremity (10/2017 and 2014) * Plavix 75mg daily 7) History of Gastritis * Pantoprazole 40mg dialy 8) History of Depression * Fluoxetine 20mg PO daily 9) Lipomas? * Roughly 4 cm round smooth freely movable soft nontender mass present in the superior left posterior shoulder area. * Roughly 2 cm round smooth freely movable soft nontender mass present at the angle of left mandible. * Should be followed up/monitored by patient's PMD 10) Prophylaxis * Protonix 40mg PO daily * Xarelto 10mg dialy * SCDs * PT eval and treat * OT eval <Daphney Bedoya - Last Filed: 02/15/18 17:12> Objective - Vital Signs/Intake and Output Vital Signs (last 24 hours): Temp Pulse Resp BP Pulse Ox 97.9 F 87 20 123/82 95 02/15/18 07:00 02/15/18 08:52 02/15/18 07:00 02/15/18 09:45 02/15/18 07:00 Intake and Output: 02/15/18 02/15/18 06:59 18:59 Intake Total 400 Balance 400 - Medications Medications: Current Medications Acetaminophen (Tylenol 325mg Tab) 650 mg PO [facility] Last Admin: 02/14/18 21:47 Dose: 650 mg Albuterol/Ipratropium (Duoneb 3 Mg/0.5 Mg (3 Ml) Ud) 3 ml INH RQ4 PRN PRN Reason: Shortness of Breath Alprazolam (Xanax) 0.25 mg PO DAILY PRN PRN Reason: Anxiety Stop: 02/21/18 23:59 Last Admin: 02/14/18 07:24 Dose: 0.25 mg Clopidogrel Bisulfate (Plavix) 75 mg PO DAILY [facility] Last Admin: 02/15/18 09:45 Dose: 75 mg Fluoxetine HCl (Prozac) 20 mg PO DAILY [facility] Last Admin: 02/15/18 09:46 Dose: 20 mg Furosemide (Lasix) 40 mg PO DAILY [facility] Last Admin: 02/15/18 09:45 Dose: 40 mg Losartan Potassium (Cozaar) 25 mg PO DAILY [facility] Last Admin: 02/15/18 09:45 Dose: 25 mg Metoprolol Tartrate (Lopressor) 75 mg PO DAILY [facility] Last Admin: 02/15/18 09:45 Dose: 75 mg Pantoprazole Sodium (Protonix Ec Tab) 40 mg PO DAILY [facility] Last Admin: 02/15/18 09:45 Dose: 40 mg Rivaroxaban (Xarelto) 10 mg PO DAILY [facility] Last Admin: 02/15/18 09:46 Dose: 10 mg Rosuvastatin Calcium (Crestor) 5 mg PO HS [facility] Last Admin: 02/14/18 21:47 Dose: 5 mg - Labs Labs: 02/15/18 06:34 02/15/18 06:34 PT 19.0 SECONDS (9.7-12.2) H 02/11/18 17:20 INR 1.7 02/11/18 17:20 APTT 45 SECONDS (21-34) H 02/11/18 17:20 Attending/Attestation - Attestation I have personally seen and examined this patient.: No I have fully participated in the care of the patient.: Yes I have reviewed all pertinent clinical information, including history, physical exam and plan: Yes Notes (Text): Discussed with the resident Patient left to [facility] for AICD in the afternoon .Not seen by me.
[2018-02-15] MEDS: Pantoprazole 40 mg EC Tab PO SCH (09:45)
--- NOTE | 2018-02-15 22:38 | CP.PCM.PN ---
Subjective - Date & Time of Evaluation Date of Evaluation: 02/15/18 Time of Evaluation: 08:10 - Subjective Subjective: No acute events noted overnight. Patient with MUGA scan yesterday which showed EF of 29% - patient now needs AICD upgrade. Patient denied chest pain, palpitations, shortness of breath today. He understood he will go for AICD placement at [place] today as this is needed to protect him from an arrythmia. He did not offer any complaints - his only concern was letting family know he is going to [place] (nursing called his niece Cassidy). Physical Examination - Additional Findings Additional findings: - Constitutional Appears: No Acute Distress - Head Exam Head Exam: ATRAUMATIC, NORMAL INSPECTION - Eye Exam Eye Exam: EOMI, Normal appearance, PERRL. absent: Scleral icterus Pupil Exam: NORMAL ACCOMODATION - ENT Exam ENT Exam: Mucous Membranes Moist - Neck Exam Neck exam: Negative for: Lymphadenopathy Additional comments: Roughly 2 cm round smooth freely movable soft nontender mass present at the angle of left mandible. - Respiratory Exam Respiratory Exam: Clear to Auscultation Bilateral, NORMAL BREATHING PATTERN. absent: Rales, Rhonchi, Wheezes, Stridor - Cardiovascular Exam Cardiovascular Exam: Irregular Rhythm. absent: JVD - GI/Abdominal Exam GI & Abdominal Exam: Normal Bowel Sounds, Soft. absent: Tenderness - Extremities Exam Extremities exam: Positive for: normal capillary refill, pedal pulses present. Negative for: joint swelling, normal inspection (left heel ulcer ), pedal edema , tenderness venous ulcer measurements are 5 x 2.3 x 0.5 cm. Roughly 4 cm round smooth freely movable soft nontender mass present in the superior left posterior shoulder area. - Neurological Exam Neurological exam: Alert, CN II-XII Intact, Oriented x3 - Psychiatric Exam Psychiatric exam: Normal Affect, Normal Mood - Skin Skin Exam: Normal Color Objective - Vital Signs/Intake and Output Vital Signs (last 24 hours): Temp Pulse Resp BP Pulse Ox 97.3 F L 78 20 146/97 H 96 02/15/18 22:10 02/15/18 22:10 02/15/18 22:10 02/15/18 22:10 02/15/18 22:10 - Medications Medications: Current Medications Acetaminophen (Tylenol 325mg Tab) 650 mg PO HS [facility] Last Admin: 02/15/18 22:06 Dose: 650 mg Albuterol/Ipratropium (Duoneb 3 Mg/0.5 Mg (3 Ml) Ud) 3 ml INH RQ4 PRN PRN Reason: Shortness of Breath Alprazolam (Xanax) 0.25 mg PO DAILY PRN PRN Reason: Anxiety Stop: 02/21/18 23:59 Last Admin: 02/14/18 07:24 Dose: 0.25 mg Clopidogrel Bisulfate (Plavix) 75 mg PO DAILY [facility] Last Admin: 02/15/18 09:45 Dose: 75 mg Fluoxetine HCl (Prozac) 20 mg PO DAILY [facility] Last Admin: 02/15/18 09:46 Dose: 20 mg Furosemide (Lasix) 40 mg PO DAILY [facility] Last Admin: 02/15/18 09:45 Dose: 40 mg Losartan Potassium (Cozaar) 25 mg PO DAILY [facility] Last Admin: 02/15/18 09:45 Dose: 25 mg Metoprolol Tartrate (Lopressor) 75 mg PO DAILY [facility] Last Admin: 02/15/18 09:45 Dose: 75 mg Pantoprazole Sodium (Protonix Ec Tab) 40 mg PO DAILY [facility] Last Admin: 02/15/18 09:45 Dose: 40 mg Rivaroxaban (Xarelto) 10 mg PO DAILY [facility] Last Admin: 02/15/18 09:46 Dose: 10 mg Rosuvastatin Calcium (Crestor) 5 mg PO HS [facility] Last Admin: 02/15/18 22:06 Dose: 5 mg - Labs Labs: 02/15/18 06:34 02/15/18 06:34 PT 19.0 SECONDS (9.7-12.2) H 02/11/18 17:20 INR 1.7 02/11/18 17:20 APTT 45 SECONDS (21-34) H 02/11/18 17:20 Assessment and Plan - Assessment and Plan (Free Text) Assessment: 1) Dyspnea Assessment/Plan * Monitor on telemetry * Pertinent positive: s/p TAVR (2014), Atrial fibrillation (on AC), Pacemaker , Smoking history * Pacemaker placed in 03/2015 - last interrogated was last week, reports his manager cash Dr Byrd told him at that time there was an issue with his pacemaker. Pacer interrogated 02/12 and stated it is working well. He also spoke to Dr. Vu. * Concern for arrhythmia given low ejection fraction when I spoke with his manager cash; he has completed holter this past week; Dr Lai spoke with Dr Byrd in regards to Holter machine--> no ventricular tachyarrythmia noted. * Duonebs PRN shortness of breathe * D-dimer: negative * Elevated probnp * Troponin X3 2) Atrial Fibrillation Assessment/Plan * CHADS: 3 * Patient is on Xarelto 10mg PO daily * Metoprolol Tartrate 75mg PO daily * Patient's outpatient manager cash, Dr. hawk byrd, does not come here--->Dr Lai spoke with Dr Byrd in regards to Holter machine--> no ventricular tachyarrythmia noted. 3) History of Aortic Stenosis s/p TAVR 2014 Coronary Artery Disease + Stent History of Pacemaker Cardiomyopathy Assessment/Plan * monitor on telemetry * Patient's outpatient manager cash, Dr. Hawk Byrd, does not come here---> will f/u holter (see notes above) * BNP 1938 * Measure daily weights, Is/Os Imaging: * Echo 02/13 - technically difficult and limited study, LV severely dialted, mild asymmetric left ventricular hypertrophy, left ventricle systolic function mildly impaired, EF 40%, global hypokinesis of left ventricle, left ventricle diastolic function is normal (see full report) * MUGA 02/14 - EF 29% * As per cardio - patient is for AICD upgrade - to go to [place] 02/15 for AICD placement - unsure at this time if patient will return from [place] or be discharged from [place]. * Continue home medications * Lopressor 75mg daily * Crestor 5mg POqHS * Lasix 40mg po daily 4) Hypertension Assessment/Plan * Monitor vital signs * Cozaar 25mg daily * Lopressor 75mg daily * Lasix 40mg po qd 5) Left heel ulcer Assessment/Plan * Patient's private stitcher special machine, Dr Kenney who he sees routinely for Darkin solution * Daily dressing changes 6) Peripheral Vascular Disease Assessment/Plan * 2 veins removed in his left lower extremity (10/2017 and 2014) * Plavix 75mg daily 7) History of Gastritis * Pantoprazole 40mg dialy 8) History of Depression * Fluoxetine 20mg PO daily 9) Lipomas? * Roughly 4 cm round smooth freely movable soft nontender mass present in the superior left posterior shoulder area. * Roughly 2 cm round smooth freely movable soft nontender mass present at the angle of left mandible. * Should be followed up/monitored by patient's PMD 10) Prophylaxis * Protonix 40mg PO daily * Xarelto 10mg dialy * SCDs * PT eval and treat * OT eval
[2018-02-16 06:44] LABS: BASO # 0.1 K/uL (0.0-0.2); BASO % 0.7 % (0.0-2.0); EOS # 0.2 K/uL (0.0-0.7); EOS % 2.6 % (0.0-4.0); HEMOGLOBIN 15.1 g/dL (12.0-18.0); LYMPH # 0.7 K/uL (1.0-4.3); LYMPH % 9.4 % (20.0-40.0); MEAN CELL VOLUME 95.6 fL (80.0-94.0); MEAN CORPUSCULAR HEMOGLOBIN 32.5 pg (27.0-31.0); MEAN PLATELET VOLUME 8.7 fL (7.2-11.7); MONO # 1.1 K/uL (0.0-0.8); MONO % 14.2 % (0.0-10.0); NEUT # 5.5 K/uL (1.8-7.0); NEUT % 73.1 % (50.0-75.0); NRBC % 0.1 % (0.0-2.0); PLATELET COUNT 241 K/uL (130-400); RBC 4.64 Mil/uL (4.40-5.90); RED CELL DISTRIBUTION WIDTH 14.5 % (11.5-14.5); WHITE BLOOD COUNT 7.5 K/uL (4.8-10.8)
[2018-02-16 07:04] LABS: BLOOD UREA NITROGEN 27 mg/dL (9-20); CALCIUM 8.8 mg/dl (8.6-10.4); GFR AFRICAN-AMERICAN > 60; GFR NON-AFRICAN AMERICAN > 60
[2018-02-16 08:39] LABS: EOSINOPHIL 1 % (0-4); LYMPHOCYTE 8 % (20-40); MONOCYTE 13 % (0-10); NEUTROPHIL 78 % (50-75); TOTAL CELLS COUNTED 100
[2018-02-16 08:40] LABS: ANISOCYTOSIS SLIGHT; PLATELET ESTIMATE NORMAL (NORMAL)
[2018-02-16 08:43] LABS: LARGE PLATELETS PRESENT
[2018-02-16] MEDS: Pantoprazole 40 mg EC Tab PO SCH (09:24)
--- NOTE | 2018-02-16 10:12 | CP.PCM.PN ---
<Courtney Guerrero - Last Filed: 02/16/18 10:10> Subjective - Date & Time of Evaluation Date of Evaluation: 02/16/18 Time of Evaluation: 07:00 - Subjective Subjective: PGY2- Progress Note Patient seen and examined at bedside. Patient is POD 1 s/p AICD placement. Patient denies any chest pain, shortness of breath, abdominal pain, nausea, vomiting, constipation, or diarrhea. Patient admits to being unsteady on his feet. Objective - Vital Signs/Intake and Output Vital Signs (last 24 hours): Temp Pulse Resp BP Pulse Ox 97.5 F L 92 H 20 158/96 H 95 02/16/18 07:00 02/16/18 08:57 02/16/18 07:00 02/16/18 09:24 02/16/18 07:00 - Medications Medications: Current Medications Acetaminophen (Tylenol 325mg Tab) 650 mg PO [facility] Last Admin: 02/15/18 22:06 Dose: 650 mg Albuterol/Ipratropium (Duoneb 3 Mg/0.5 Mg (3 Ml) Ud) 3 ml INH RQ4 PRN PRN Reason: Shortness of Breath Alprazolam (Xanax) 0.25 mg PO DAILY PRN PRN Reason: Anxiety Stop: 02/21/18 23:59 Last Admin: 02/14/18 07:24 Dose: 0.25 mg Clopidogrel Bisulfate (Plavix) 75 mg PO DAILY [facility] Last Admin: 02/16/18 09:24 Dose: 75 mg Fluoxetine HCl (Prozac) 20 mg PO DAILY [facility] Last Admin: 02/16/18 09:21 Dose: 20 mg Furosemide (Lasix) 40 mg PO DAILY [facility] Last Admin: 02/16/18 09:24 Dose: 40 mg Losartan Potassium (Cozaar) 25 mg PO DAILY [facility] Last Admin: 02/16/18 09:24 Dose: 25 mg Metoprolol Tartrate (Lopressor) 75 mg PO DAILY [facility] Last Admin: 02/16/18 09:24 Dose: 75 mg Pantoprazole Sodium (Protonix Ec Tab) 40 mg PO DAILY [facility] Last Admin: 02/16/18 09:24 Dose: 40 mg Rivaroxaban (Xarelto) 10 mg PO DAILY [facility] Last Admin: 02/16/18 09:28 Dose: Not Given Rosuvastatin Calcium (Crestor) 5 mg PO HS [facility] Last Admin: 02/15/18 22:06 Dose: 5 mg - Labs Labs: 02/16/18 06:36 02/16/18 06:36 PT 19.0 SECONDS (9.7-12.2) H 02/11/18 17:20 INR 1.7 02/11/18 17:20 APTT 45 SECONDS (21-34) H 02/11/18 17:20 - Additional Findings Additional findings: - Additional Findings Additional findings: - Constitutional Appears: No Acute Distress - Head Exam Head Exam: ATRAUMATIC, NORMAL INSPECTION - Eye Exam Eye Exam: EOMI, Normal appearance, PERRL. absent: Scleral icterus Pupil Exam: NORMAL ACCOMODATION - ENT Exam ENT Exam: Mucous Membranes Moist - Neck Exam Neck exam: Negative for: Lymphadenopathy Additional comments: Roughly 2 cm round smooth freely movable soft nontender mass present at the angle of left mandible. - Respiratory Exam Respiratory Exam: Clear to Auscultation Bilateral, NORMAL BREATHING PATTERN. absent: Rales, Rhonchi, Wheezes, Stridor - Cardiovascular Exam Cardiovascular Exam: Irregular Rhythm. absent: JVD - GI/Abdominal Exam GI & Abdominal Exam: Normal Bowel Sounds, Soft. absent: Tenderness - Extremities Exam Extremities exam: Positive for: normal capillary refill, pedal pulses present. Negative for: joint swelling, normal inspection (left heel ulcer ), pedal edema , tenderness venous ulcer measurements are 5 x 2.3 x 0.5 cm. Roughly 4 cm round smooth freely movable soft nontender mass present in the superior left posterior shoulder area. - Neurological Exam Neurological exam: Alert, CN II-XII Intact, Oriented x3 - Psychiatric Exam Psychiatric exam: Normal Affect, Normal Mood - Skin Skin Exam: Normal Color Assessment and Plan - Assessment and Plan (Free Text) Assessment: 1) Dyspnea Assessment/Plan * Monitor on telemetry * Pertinent positive: s/p TAVR (2014), Atrial fibrillation (on AC), Pacemaker , Smoking history * Pacemaker placed in 03/2015 - last interrogated was last week, reports his scientific linguist Dr Byrd told him at that time there was an issue with his pacemaker. Pacer interrogated 02/12 and stated it is working well. He also spoke to Dr. Vu. * Concern for arrhythmia given low ejection fraction when I spoke with his scientific linguist; he has completed holter this past week; Dr Lai spoke with Dr Byrd in regards to Holter machine--> no ventricular tachyarrythmia noted. * Duonebs PRN shortness of breathe * D-dimer: negative * Elevated probnp * Troponin X3 2) Atrial Fibrillation Assessment/Plan * CHADS: 3 * Patient is on Xarelto 10mg PO daily * Metoprolol Tartrate 75mg PO daily * Patient's outpatient scientific linguist, Dr. hawk byrd, does not come here--->Dr Lai spoke with Dr Byrd in regards to Holter machine--> no ventricular tachyarrythmia noted. * consult cardiology, Dr Vu 3) History of Aortic Stenosis s/p TAVR 2014 Coronary Artery Disease + Stent History of Pacemaker Cardiomyopathy Assessment/Plan * AICD placed at [place] on 02/15/18 * monitor on telemetry * Patient's outpatient scientific linguist, Dr. Hawk Byrd, does not come here---> will f/u holter (see notes above) * consult cardiology, Dr. Vu * BNP 194 * Measure daily weights, Is/Os Imaging: * Echo 02/13 - technically difficult and limited study, LV severely dialted, mild asymmetric left ventricular hypertrophy, left ventricle systolic function mildly impaired, EF 40%, global hypokinesis of left ventricle, left ventricle diastolic function is normal (see full report) * MUGA 02/14 - EF 29% * Continue home medications * Lopressor 75mg daily * Crestor 5mg POqHS * Lasix 40mg po daily 4) Hypertension Assessment/Plan * Monitor vital signs * Cozaar 25mg daily * Lopressor 75mg daily * Lasix 40mg po qd 5) Left heel ulcer Assessment/Plan * Patient's private supervisor sulfuric acid plant, Dr Kenney who he sees routinely for Darkin solution * Daily dressing changes * physical therapy 6) Peripheral Vascular Disease Assessment/Plan * 2 veins removed in his left lower extremity (10/2017 and 2014) * Plavix 75mg daily 7) History of Gastritis * Pantoprazole 40mg dialy 8) History of Depression * Fluoxetine 20mg PO daily 9) Lipomas? * Roughly 4 cm round smooth freely movable soft nontender mass present in the superior left posterior shoulder area. * Roughly 2 cm round smooth freely movable soft nontender mass present at the angle of left mandible. * Should be followed up/monitored by patient's PMD 10) Prophylaxis * Protonix 40mg PO daily * Xarelto 10mg dialy * SCDs * PT eval and treat * OT eval <Daphney Bedoya - Last Filed: 02/16/18 16:10> Objective - Vital Signs/Intake and Output Vital Signs (last 24 hours): Temp Pulse Resp BP Pulse Ox 97.5 F L 92 H 20 158/96 H 95 02/16/18 07:00 02/16/18 08:57 02/16/18 07:00 02/16/18 09:24 02/16/18 07:00 Intake and Output: 02/16/18 02/16/18 06:59 18:59 Intake Total 600 Output Total 400 Balance 200 - Medications Medications: Current Medications Acetaminophen (Tylenol 325mg Tab) 650 mg PO [facility] Last Admin: 02/15/18 22:06 Dose: 650 mg Albuterol/Ipratropium (Duoneb 3 Mg/0.5 Mg (3 Ml) Ud) 3 ml INH RQ4 PRN PRN Reason: Shortness of Breath Alprazolam (Xanax) 0.25 mg PO DAILY PRN PRN Reason: Anxiety Stop: 02/21/18 23:59 Last Admin: 02/14/18 07:24 Dose: 0.25 mg Clopidogrel Bisulfate (Plavix) 75 mg PO DAILY [facility] Last Admin: 02/16/18 09:24 Dose: 75 mg Fluoxetine HCl (Prozac) 20 mg PO DAILY [facility] Last Admin: 02/16/18 09:21 Dose: 20 mg Furosemide (Lasix) 40 mg PO DAILY [facility] Last Admin: 02/16/18 09:24 Dose: 40 mg Losartan Potassium (Cozaar) 25 mg PO DAILY [facility] Last Admin: 02/16/18 09:24 Dose: 25 mg Metoprolol Tartrate (Lopressor) 75 mg PO DAILY [facility] Last Admin: 02/16/18 09:24 Dose: 75 mg Pantoprazole Sodium (Protonix Ec Tab) 40 mg PO DAILY [facility] Last Admin: 02/16/18 09:24 Dose: 40 mg Rivaroxaban (Xarelto) 10 mg PO DAILY [facility] Last Admin: 02/16/18 09:28 Dose: Not Given Rosuvastatin Calcium (Crestor) 5 mg PO [facility] Last Admin: 02/15/18 22:06 Dose: 5 mg - Labs Labs: 02/16/18 06:36 02/16/18 06:36 PT 19.0 SECONDS (9.7-12.2) H 02/11/18 17:20 INR 1.7 02/11/18 17:20 APTT 45 SECONDS (21-34) H 02/11/18 17:20 Attending/Attestation - Attestation I have personally seen and examined this patient.: Yes I have fully participated in the care of the patient.: Yes I have reviewed all pertinent clinical information, including history, physical exam and plan: Yes Notes (Text): Seen and examined by me. patient is sitting and talking on the phone denies pain,no sob s/p AICD placement chest x ray reviewed. resume xaralta tomorrow follow scientific linguist Unsteady gait -PT evaluation and home care service d/w Resident I agree with the resident's assessment and the plan
--- NOTE | 2018-02-16 11:20 | RAD ---
HISTORY: s/p AICD COMPARISON: Comparison made with prior chest radiograph 02/11/2018. TECHNIQUE: Chest PA and lateral FINDINGS: LUNGS: No active pulmonary disease. PLEURA: No significant pleural effusion identified. No pneumothorax apparent. CARDIOVASCULAR: Interval removal previously noted single lead pacemaker and placement of a multi lead pacemaker/defibrillator. Heart remains enlarged. . Apparent endovascular stent overlies the cardiac silhouette. Clinical correlation with history recommended. OSSEOUS STRUCTURES: No significant abnormalities. VISUALIZED UPPER ABDOMEN: Normal. OTHER FINDINGS: None. IMPRESSION: Status post of removal single lead pacemaker placement of multi lead pacemaker/defibrillator. No evidence of pneumothorax. Cardiomegaly.
--- NOTE | 2018-02-16 23:50 | CP.PCM.PN ---
Subjective - Date & Time of Evaluation Date of Evaluation: 02/16/18 Time of Evaluation: 11:40 - Subjective Subjective: Patient seen and evaluated S/P AICD Echymosis Review of Systems - Constitutional Constitutional: Weakness. absent: Chills, Fever, Weight Gain, Weight Loss - Cardiovascular Cardiovascular: Dyspnea, Dyspnea on Exertion, Lightheadedness. absent: Chest Pain, Leg Edema, Palpitations, Pedal Edema - Respiratory Respiratory: Dyspnea. absent: Cough - Gastrointestinal Gastrointestinal: absent: Abdominal Pain, Constipation, Diarrhea, Nausea, Vomiting - Genitourinary Genitourinary: absent: Dysuria, Hematuria - Musculoskeletal Musculoskeletal: absent: Numbness, Stiffness - Neurological Neurological: Weakness. absent: Dizziness, Headaches, Tingling Physical Exam - Constitutional Appears: No Acute Distress - Head Exam Head Exam: ATRAUMATIC, NORMAL INSPECTION - Eye Exam Eye Exam: EOMI, Normal appearance, PERRL. absent: Scleral icterus Pupil Exam: NORMAL ACCOMODATION - ENT Exam ENT Exam: Mucous Membranes Moist - Neck Exam Neck exam: Negative for: Lymphadenopathy Additional comments: left side of his mandible - palpable cyst - Respiratory Exam Respiratory Exam: Clear to Auscultation Bilateral, NORMAL BREATHING PATTERN. absent: Rales, Rhonchi, Wheezes, Stridor - Cardiovascular Exam Cardiovascular Exam: Irregular Rhythm. absent: JVD - GI/Abdominal Exam GI & Abdominal Exam: Normal Bowel Sounds, Soft. absent: Tenderness - Extremities Exam Extremities exam: Positive for: normal capillary refill, pedal pulses present. Negative for: joint swelling, normal inspection (left heel ulcer ), pedal edema , tenderness - Neurological Exam Neurological exam: Alert, CN II-XII Intact, Oriented x3 - Psychiatric Exam Psychiatric exam: Normal Affect, Normal Mood - Skin Skin Exam: Normal Color Objective - Vital Signs/Intake and Output Vital Signs (last 24 hours): Temp Pulse Resp BP Pulse Ox 98.1 F 86 20 120/81 96 02/16/18 15:09 02/16/18 16:34 02/16/18 15:09 02/16/18 15:09 02/16/18 15:09 Intake and Output: 02/16/18 02/17/18 18:59 06:59 Intake Total 600 Output Total 400 Balance 200 - Medications Medications: Current Medications Acetaminophen (Tylenol 325mg Tab) 650 mg PO HS [facility] Last Admin: 02/16/18 21:17 Dose: 650 mg Albuterol/Ipratropium (Duoneb 3 Mg/0.5 Mg (3 Ml) Ud) 3 ml INH RQ4 PRN PRN Reason: Shortness of Breath Alprazolam (Xanax) 0.25 mg PO DAILY PRN PRN Reason: Anxiety Stop: 02/21/18 23:59 Last Admin: 02/14/18 07:24 Dose: 0.25 mg Clopidogrel Bisulfate (Plavix) 75 mg PO DAILY [facility] Last Admin: 02/16/18 09:24 Dose: 75 mg Fluoxetine HCl (Prozac) 20 mg PO DAILY [facility] Last Admin: 02/16/18 09:21 Dose: 20 mg Furosemide (Lasix) 40 mg PO DAILY [facility] Last Admin: 02/16/18 09:24 Dose: 40 mg Losartan Potassium (Cozaar) 25 mg PO DAILY [facility] Last Admin: 02/16/18 09:24 Dose: 25 mg Metoprolol Tartrate (Lopressor) 75 mg PO DAILY [facility] Last Admin: 02/16/18 09:24 Dose: 75 mg Pantoprazole Sodium (Protonix Ec Tab) 40 mg PO DAILY [facility] Last Admin: 02/16/18 09:24 Dose: 40 mg Rivaroxaban (Xarelto) 10 mg PO DAILY [facility] Last Admin: 02/16/18 09:28 Dose: Not Given Rosuvastatin Calcium (Crestor) 5 mg PO HS [facility] Last Admin: 02/16/18 21:17 Dose: 5 mg - Labs Labs: 02/16/18 06:36 02/16/18 06:36 PT 19.0 SECONDS (9.7-12.2) H 02/11/18 17:20 INR 1.7 02/11/18 17:20 APTT 45 SECONDS (21-34) H 02/11/18 17:20 Assessment and Plan - Assessment and Plan (Free Text) Assessment: 1) Dyspnea Assessment/Plan * Monitor on telemetry * Pertinent positive: s/p TAVR (2014), Atrial fibrillation (on AC), Pacemaker , Smoking history * Pacemaker placed in 03/2015 - last interrogated was last week, reports his office machines teacher Dr Byrd told him at that time there was an issue with his pacemaker. Pacer interrogated 02/12 and stated it is working well. He also spoke to Dr. Vu. * Concern for arrhythmia given low ejection fraction when I spoke with his office machines teacher; he has completed holter this past week; Dr Lai spoke with Dr Byrd in regards to Holter machine--> no ventricular tachyarrythmia noted. * Duonebs PRN shortness of breathe * D-dimer: negative * Elevated probnp * Troponin X3 2) Atrial Fibrillation Assessment/Plan * CHADS: 3 * Patient is on Xarelto 10mg PO daily * Metoprolol Tartrate 75mg PO daily * Patient's outpatient office machines teacher, Dr. hawk byrd, does not come here--->Dr Lai spoke with Dr Byrd in regards to Holter machine--> no ventricular tachyarrythmia noted. 3) History of Aortic Stenosis s/p TAVR 2014 Coronary Artery Disease + Stent History of Pacemaker Cardiomyopathy Assessment/Plan * monitor on telemetry * Patient's outpatient office machines teacher, Dr. Hawk Byrd, does not come here---> will f/u holter (see notes above) * BNP 1938 * Measure daily weights, Is/Os Imaging: * Echo 02/13 - technically difficult and limited study, LV severely dialted, mild asymmetric left ventricular hypertrophy, left ventricle systolic function mildly impaired, EF 40%, global hypokinesis of left ventricle, left ventricle diastolic function is normal (see full report) * MUGA 02/14 - EF 29% * As per cardio - patient is for AICD upgrade - to go to [place] 02/15 for AICD placement - unsure at this time if patient will return from [place] or be discharged from [place]. * Continue home medications * Lopressor 75mg daily * Crestor 5mg POqHS * Lasix 40mg po daily 4) Hypertension Assessment/Plan * Monitor vital signs * Cozaar 25mg daily * Lopressor 75mg daily * Lasix 40mg po qd 5) Left heel ulcer Assessment/Plan * Patient's private housing management representative, Dr Kenney who he sees routinely for Darkin solution * Daily dressing changes 6) Peripheral Vascular Disease Assessment/Plan * 2 veins removed in his left lower extremity (10/2017 and 2014) * Plavix 75mg daily 7) History of Gastritis * Pantoprazole 40mg dialy 8) History of Depression * Fluoxetine 20mg PO daily 9) Lipomas? * Roughly 4 cm round smooth freely movable soft nontender mass present in the superior left posterior shoulder area. * Roughly 2 cm round smooth freely movable soft nontender mass present at the angle of left mandible. * Should be followed up/monitored by patient's PMD 10) Prophylaxis * Protonix 40mg PO daily * Xarelto 10mg dialy * SCDs * PT eval and treat * OT eval
[2018-02-17 06:58] LABS: BASO # 0.1 K/uL (0.0-0.2); EOS # 0.3 K/uL (0.0-0.7); EOS % 3.7 % (0.0-4.0); LYMPH # 0.8 K/uL (1.0-4.3); LYMPH % 10.2 % (20.0-40.0); MEAN CELL VOLUME 95.7 fL (80.0-94.0); MEAN CORPUSCULAR HEMOGLOBIN 33.2 pg (27.0-31.0); MEAN CORPUSCULAR HGB CONC 34.7 g/dL (33.0-37.0); MEAN PLATELET VOLUME 8.6 fL (7.2-11.7); MONO # 1.2 K/uL (0.0-0.8); MONO % 16.1 % (0.0-10.0); NEUT # 5.3 K/uL (1.8-7.0); NRBC % 0.1 % (0.0-2.0); RBC 4.54 Mil/uL (4.40-5.90); RED CELL DISTRIBUTION WIDTH 14.5 % (11.5-14.5); WHITE BLOOD COUNT 7.7 K/uL (4.8-10.8)
[2018-02-17 07:52] LABS: BLOOD UREA NITROGEN 25 mg/dL (9-20); GFR AFRICAN-AMERICAN > 60; GFR NON-AFRICAN AMERICAN > 60
--- NOTE | 2018-02-17 10:10 | CP.PCM.PN ---
Subjective - Date & Time of Evaluation Date of Evaluation: 02/17/18 Time of Evaluation: 09:55 - Subjective Subjective: Medical Attending Note: Patient seen and examined this morning. Patient is status post AICD placement POD1 in [facility]. Patient reports soreness around the site of the AICD. Patient denies headache, denies chest pain, denies nausea, denies vomitting, denies abdominal pain, reports he is moving his bowels. Patient's goal is to go home. He does not want rehab. Objective - Vital Signs/Intake and Output Vital Signs (last 24 hours): Temp Pulse Resp BP Pulse Ox 97.6 F 98 H 20 133/80 97 02/17/18 07:00 02/17/18 07:00 02/17/18 07:00 02/17/18 07:00 02/17/18 07:00 Intake and Output: 02/17/18 02/17/18 06:59 18:59 Output Total 200 Balance -200 - Medications Medications: Current Medications Acetaminophen (Tylenol 325mg Tab) 650 mg PO [facility] Last Admin: 02/16/18 21:17 Dose: 650 mg Albuterol/Ipratropium (Duoneb 3 Mg/0.5 Mg (3 Ml) Ud) 3 ml INH RQ4 PRN PRN Reason: Shortness of Breath Alprazolam (Xanax) 0.25 mg PO DAILY PRN PRN Reason: Anxiety Stop: 02/21/18 23:59 Last Admin: 02/14/18 07:24 Dose: 0.25 mg Clopidogrel Bisulfate (Plavix) 75 mg PO DAILY [facility] Last Admin: 02/16/18 09:24 Dose: 75 mg Fluoxetine HCl (Prozac) 20 mg PO DAILY [facility] Last Admin: 02/16/18 09:21 Dose: 20 mg Furosemide (Lasix) 40 mg PO DAILY [facility] Last Admin: 02/16/18 09:24 Dose: 40 mg Losartan Potassium (Cozaar) 25 mg PO DAILY [facility] Last Admin: 02/16/18 09:24 Dose: 25 mg Metoprolol Tartrate (Lopressor) 75 mg PO DAILY [facility] Last Admin: 02/16/18 09:24 Dose: 75 mg Pantoprazole Sodium (Protonix Ec Tab) 40 mg PO DAILY [facility] Last Admin: 02/16/18 09:24 Dose: 40 mg Rivaroxaban (Xarelto) 10 mg PO DAILY [facility] Last Admin: 02/16/18 09:28 Dose: Not Given Rosuvastatin Calcium (Crestor) 5 mg PO HS [facility] Last Admin: 02/16/18 21:17 Dose: 5 mg - Labs Labs: 02/17/18 06:53 02/17/18 06:53 PT 19.0 SECONDS (9.7-12.2) H 02/11/18 17:20 INR 1.7 02/11/18 17:20 APTT 45 SECONDS (21-34) H 02/11/18 17:20 - Constitutional Appears: Non-toxic, No Acute Distress - Head Exam Head Exam: NORMAL INSPECTION Additional comments: left side chest: ecchymoses from shoulder, left chest Left upper extremity: mild ecchymoses Right upper extremity: mild echymoses tender and swelling noted over the aicd - ENT Exam ENT Exam: Mucous Membranes Moist - Respiratory Exam Respiratory Exam: Clear to Ausculation Bilateral, NORMAL BREATHING PATTERN. absent: Rales, Rhonchi, Wheezes - Cardiovascular Exam Cardiovascular Exam: REGULAR RHYTHM, +S1, +S2 - GI/Abdominal Exam GI & Abdominal Exam: Soft, Normal Bowel Sounds. absent: Distended, Firm, Guarding, Rigid, Tenderness, Rebound - Extremities Exam Additional comments: no edema noted Left lower extremity: Wrapped in Lesley - Neurological Exam Neurological Exam: Alert, Awake, Oriented x3 - Skin Skin Exam: Dry, Petechiae, Warm Additional comments: ecchymoses noted Assessment and Plan - Assessment and Plan (Free Text) Assessment: Assessment/Plan 1) Dyspnea Assessment/Plan * Cardiology (Dr. Vu) on case help appreciated * Monitor on telemetry * Pertinent positive: s/p TAVR (2014), Atrial fibrillation (on AC), Pacemaker , Smoking history * Pacemaker placed in 03/2015 - last interrogated was last week, reports his social welfare research worker Dr Byrd told him at that time there was an issue with his pacemaker and that it needs to be rechecked. Patient completed Holter with Dr. Byrd; No V-tachy noted per discussion. * Duonebs PRN shortness of breathe * D-dimer: negative * Elevated probnp * Troponin X3 2) Atrial Fibrillation Assessment/Plan * CHADS: 3 * Patient is on Xarelto 10mg PO daily-->to be resumed today * Metoprolol Tartrate 75mg PO daily * Echo 02/13 - technically difficult and limited study, LV severely dialted, mild asymmetric left ventricular hypertrophy, left ventricle systolic function mildly impaired, EF 40%, global hypokinesis of left ventricle, left ventricle diastolic function is normal (see full report) 3) History of Aortic Stenosis s/p TAVR 2014 with low Ejection Fraction Coronary Artery Disease + Stent History of Pacemaker Cardiomyopathy Assessment/Plan * monitor on telemetry * Patient's outpatient social welfare research worker, Dr. Hawk Byrd * Echo 02/13 - technically difficult and limited study, LV severely dialted, mild asymmetric left ventricular hypertrophy, left ventricle systolic function mildly impaired, EF 40%, global hypokinesis of left ventricle, left ventricle diastolic function is normal (see full report) * MUGA 02/14 - EF 29% * Patient will need AICD given low Ejection Fraction noted by echo and MUGA * Patient had placement of AICD at [facility] over the weekend * Patient had noted ecchymoses over the site with tenderness to palpation * BNP 1937 * Measure daily weights, Is/Os * Continue home medications * Lopressor 75mg daily * Crestor 5mg POqHS * Plavix 75mg daily * Lasix 40mg daily * Crestor 5mg POqHS * Patient to restart Xarleto today 4) Hypertension Assessment/Plan * Monitor vital signs * Cozaar 25mg daily * Lopressor 75mg daily 5) Left heel ulcer Assessment/Plan * Patient's private flume tender, Dr Kenney who he sees routinely for Darkin solution * Patient has pending appointment on SundayFebruary 19 * Daily dressing changes 6) Peripheral Vascular Disease Assessment/Plan * 2 veins removed in his left lower extremity (10/2017 and 2014) 7) History of Gastritis * Pantoprazole 40mg dialy 8) History of Depression * Fluoxetine 20mg PO daily 9) Prophylaxis * Protonix 40mg PO daily * Xarelto 10mg dialy * SCDs * PT eval and treat * Patient is for home upon discharge Disposition: Patient would like to home on discharge. We will need to f/u with case management and social in regards for home services and nursing care at home. We will f/u with cardiology for clearance for discharge planning
[2018-02-17] MEDS: Pantoprazole 40 mg EC Tab PO SCH (10:32)
--- NOTE | 2018-02-17 23:32 | CP.PCM.PN ---
Subjective - Date & Time of Evaluation Date of Evaluation: 02/17/18 Time of Evaluation: 16:30 - Subjective Subjective: Patient seen and evaluated Denies chest pain and dyspnea A lot of echymosis Will hole Xaelayneto for 2-3 additional days Review of Systems - Constitutional Constitutional: Weakness. absent: Chills, Fever, Weight Gain, Weight Loss - Cardiovascular Cardiovascular: Dyspnea, Dyspnea on Exertion, Lightheadedness. absent: Chest Pain, Leg Edema, Palpitations, Pedal Edema - Respiratory Respiratory: Dyspnea. absent: Cough - Gastrointestinal Gastrointestinal: absent: Abdominal Pain, Constipation, Diarrhea, Nausea, Vomiting - Genitourinary Genitourinary: absent: Dysuria, Hematuria - Musculoskeletal Musculoskeletal: absent: Numbness, Stiffness - Neurological Neurological: Weakness. absent: Dizziness, Headaches, Tingling Physical Exam - Constitutional Appears: No Acute Distress - Head Exam Head Exam: ATRAUMATIC, NORMAL INSPECTION - Eye Exam Eye Exam: EOMI, Normal appearance, PERRL. absent: Scleral icterus Pupil Exam: NORMAL ACCOMODATION - ENT Exam ENT Exam: Mucous Membranes Moist - Neck Exam Neck exam: Negative for: Lymphadenopathy Additional comments: left side of his mandible - palpable cyst - Respiratory Exam Respiratory Exam: Clear to Auscultation Bilateral, NORMAL BREATHING PATTERN. absent: Rales, Rhonchi, Wheezes, Stridor - Cardiovascular Exam Cardiovascular Exam: Irregular Rhythm. absent: JVD - GI/Abdominal Exam GI & Abdominal Exam: Normal Bowel Sounds, Soft. absent: Tenderness - Extremities Exam Extremities exam: Positive for: normal capillary refill, pedal pulses present. Negative for: joint swelling, normal inspection (left heel ulcer ), pedal edema , tenderness - Neurological Exam Neurological exam: Alert, CN II-XII Intact, Oriented x3 - Psychiatric Exam Psychiatric exam: Normal Affect, Normal Mood - Skin Skin Exam: Normal Color Objective - Vital Signs/Intake and Output Vital Signs (last 24 hours): Temp Pulse Resp BP Pulse Ox 97.6 F 74 20 105/56 L 98 02/17/18 15:00 02/17/18 16:05 02/17/18 15:00 02/17/18 15:00 02/17/18 15:00 Intake and Output: 02/17/18 02/18/18 18:59 06:59 Intake Total 600 Output Total 200 Balance 400 - Medications Medications: Current Medications Acetaminophen (Tylenol 325mg Tab) 650 mg PO HS [facility] Last Admin: 02/17/18 21:02 Dose: 650 mg Albuterol/Ipratropium (Duoneb 3 Mg/0.5 Mg (3 Ml) Ud) 3 ml INH RQ4 PRN PRN Reason: Shortness of Breath Alprazolam (Xanax) 0.25 mg PO DAILY PRN PRN Reason: Anxiety Stop: 02/21/18 23:59 Last Admin: 02/14/18 07:24 Dose: 0.25 mg Clopidogrel Bisulfate (Plavix) 75 mg PO DAILY [facility] Last Admin: 02/17/18 10:32 Dose: 75 mg Fluoxetine HCl (Prozac) 20 mg PO DAILY [facility] Last Admin: 02/17/18 10:32 Dose: 20 mg Furosemide (Lasix) 40 mg PO DAILY [facility] Last Admin: 02/17/18 10:32 Dose: 40 mg Losartan Potassium (Cozaar) 25 mg PO DAILY [facility] Last Admin: 02/17/18 10:32 Dose: 25 mg Metoprolol Tartrate (Lopressor) 75 mg PO DAILY [facility] Last Admin: 02/17/18 10:30 Dose: 75 mg Pantoprazole Sodium (Protonix Ec Tab) 40 mg PO DAILY [facility] Last Admin: 02/17/18 10:32 Dose: 40 mg Rivaroxaban (Xarelto) 10 mg PO DAILY [facility] Last Admin: 02/17/18 10:33 Dose: 10 mg Rosuvastatin Calcium (Crestor) 5 mg PO HS [facility] Last Admin: 02/17/18 21:02 Dose: 5 mg - Labs Labs: 02/17/18 06:53 02/17/18 06:53 PT 19.0 SECONDS (9.7-12.2) H 02/11/18 17:20 INR 1.7 02/11/18 17:20 APTT 45 SECONDS (21-34) H 02/11/18 17:20 Assessment and Plan - Assessment and Plan (Free Text) Assessment: 1) Dyspnea Assessment/Plan * Monitor on telemetry * Pertinent positive: s/p TAVR (2014), Atrial fibrillation (on AC), Pacemaker , Smoking history * Pacemaker placed in 03/2015 - last interrogated was last week, reports his plaster applicator Dr Byrd told him at that time there was an issue with his pacemaker. Pacer interrogated 02/12 and stated it is working well. He also spoke to Dr. Vu. * Concern for arrhythmia given low ejection fraction when I spoke with his plaster applicator; he has completed holter this past week; Dr Lai spoke with Dr Byrd in regards to Holter machine--> no ventricular tachyarrythmia noted. * Duonebs PRN shortness of breathe * D-dimer: negative * Elevated probnp * Troponin X3 2) Atrial Fibrillation Assessment/Plan * CHADS: 3 * Patient is on Xarelto 10mg PO daily * Metoprolol Tartrate 75mg PO daily * Patient's outpatient plaster applicator, Dr. karthik byrd, does not come here--->Dr Lai spoke with Dr Byrd in regards to Holter machine--> no ventricular tachyarrythmia noted. 3) History of Aortic Stenosis s/p TAVR 2014 Coronary Artery Disease + Stent History of Pacemaker Cardiomyopathy Assessment/Plan * monitor on telemetry * Patient's outpatient plaster applicator, Dr. Karthik Byrd, does not come here---> will f/u holter (see notes above) * BNP 1937 * Measure daily weights, Is/Os Imaging: * Echo 02/13 - technically difficult and limited study, LV severely dialted, mild asymmetric left ventricular hypertrophy, left ventricle systolic function mildly impaired, EF 40%, global hypokinesis of left ventricle, left ventricle diastolic function is normal (see full report) * MUGA 02/14 - EF 29% * As per cardio - patient is for AICD upgrade - to go to [facility] 02/15 for AICD placement - unsure at this time if patient will return from [facility] or be discharged from [facility]. * Continue home medications * Lopressor 75mg daily * Crestor 5mg POqHS * Lasix 40mg po daily 4) Hypertension Assessment/Plan * Monitor vital signs * Cozaar 25mg daily * Lopressor 75mg daily * Lasix 40mg po qd 5) Left heel ulcer Assessment/Plan * Patient's private tobacco scrap sifter, Dr Kenney who he sees routinely for Darkin solution * Daily dressing changes 6) Peripheral Vascular Disease Assessment/Plan * 2 veins removed in his left lower extremity (10/2017 and 2014) * Plavix 75mg daily 7) History of Gastritis * Pantoprazole 40mg dialy 8) History of Depression * Fluoxetine 20mg PO daily 9) Lipomas? * Roughly 4 cm round smooth freely movable soft nontender mass present in the superior left posterior shoulder area. * Roughly 2 cm round smooth freely movable soft nontender mass present at the angle of left mandible. * Should be followed up/monitored by patient's PMD 10) Prophylaxis * Protonix 40mg PO daily * Xarelto 10mg dialy * SCDs * PT eval and treat * OT eval Patient s/p AICD A lot of echymosis Will hole Xarelto for 2-3 additional days [facility]
[2018-02-18 06:33] LABS: BASO # 0.1 K/uL (0.0-0.2); BASO % 1.2 % (0.0-2.0); EOS # 0.3 K/uL (0.0-0.7); EOS % 4.4 % (0.0-4.0); HEMOGLOBIN 14.2 g/dL (12.0-18.0); LYMPH # 0.7 K/uL (1.0-4.3); LYMPH % 10.1 % (20.0-40.0); MEAN CELL VOLUME 95.3 fL (80.0-94.0); MEAN CORPUSCULAR HEMOGLOBIN 33.4 pg (27.0-31.0); MEAN CORPUSCULAR HGB CONC 35.1 g/dL (33.0-37.0); MEAN PLATELET VOLUME 8.7 fL (7.2-11.7); MONO # 1.3 K/uL (0.0-0.8); MONO % 17.8 % (0.0-10.0); NEUT # 4.9 K/uL (1.8-7.0); NEUT % 66.5 % (50.0-75.0); NRBC % 0.1 % (0.0-2.0); RBC 4.25 Mil/uL (4.40-5.90); RED CELL DISTRIBUTION WIDTH 14.4 % (11.5-14.5); WHITE BLOOD COUNT 7.3 K/uL (4.8-10.8)
[2018-02-18 06:38] LABS: INR 1.4; PROTHROMBIN TIME 15.5 SECONDS (9.7-12.2)
[2018-02-18 06:47] LABS: ALB/GLOB RATIO 1.2 (1.0-2.1); ALBUMIN 3.9 g/dL (3.5-5.0); ALT/SGPT 37 U/L (21-72); AST/SGOT 56 U/L (17-59); BLOOD UREA NITROGEN 26 mg/dL (9-20); CALCIUM 8.8 mg/dl (8.6-10.4); GFR AFRICAN-AMERICAN > 60; GFR NON-AFRICAN AMERICAN > 60
[2018-02-18] MEDS: Pantoprazole 40 mg EC Tab PO SCH (10:55)
--- NOTE | 2018-02-18 13:00 | CP.PCM.PN ---
<Courtney Guerrero - Last Filed: 02/18/18 17:39> Subjective - Date & Time of Evaluation Date of Evaluation: 02/18/18 Time of Evaluation: 12:00 - Subjective Subjective: PGY2- Progress Note for Dr. Vu Patient seen and examined at bedside and in no acute distress. Patient says he has no chest pain, shortness of breath or palpitations. Patient does admits to chest wall soreness in the region of his ecchymosis. Objective - Vital Signs/Intake and Output Vital Signs (last 24 hours): Temp Pulse Resp BP Pulse Ox 97.7 F 84 20 100/65 97 02/18/18 07:00 02/18/18 07:00 02/18/18 07:00 02/18/18 10:54 02/18/18 07:00 - Medications Medications: Current Medications Acetaminophen (Tylenol 325mg Tab) 650 mg PO [facility] Last Admin: 02/17/18 21:02 Dose: 650 mg Albuterol/Ipratropium (Duoneb 3 Mg/0.5 Mg (3 Ml) Ud) 3 ml INH RQ4 PRN PRN Reason: Shortness of Breath Alprazolam (Xanax) 0.25 mg PO DAILY PRN PRN Reason: Anxiety Stop: 02/21/18 23:59 Last Admin: 02/14/18 07:24 Dose: 0.25 mg Clopidogrel Bisulfate (Plavix) 75 mg PO DAILY [facility] Last Admin: 02/18/18 10:55 Dose: 75 mg Fluoxetine HCl (Prozac) 20 mg PO DAILY [facility] Last Admin: 02/18/18 10:55 Dose: 20 mg Furosemide (Lasix) 40 mg PO DAILY [facility] Last Admin: 02/18/18 10:54 Dose: 40 mg Losartan Potassium (Cozaar) 25 mg PO DAILY [facility] Last Admin: 02/18/18 10:55 Dose: Not Given Metoprolol Tartrate (Lopressor) 75 mg PO DAILY [facility] Last Admin: 02/18/18 10:54 Dose: Not Given Pantoprazole Sodium (Protonix Ec Tab) 40 mg PO DAILY [facility] Last Admin: 02/18/18 10:55 Dose: 40 mg Rivaroxaban (Xarelto) 10 mg PO DAILY [facility] Last Admin: 02/17/18 10:33 Dose: 10 mg Rosuvastatin Calcium (Crestor) 5 mg PO [facility] Last Admin: 02/17/18 21:02 Dose: 5 mg - Labs Labs: 02/18/18 06:23 02/18/18 06:23 PT 15.5 SECONDS (9.7-12.2) H 02/18/18 06:23 INR 1.4 02/18/18 06:23 APTT 45 SECONDS (21-34) H 02/11/18 17:20 - Constitutional Appears: Non-toxic, No Acute Distress - Head Exam Head Exam: ATRAUMATIC, NORMAL INSPECTION, NORMOCEPHALIC - Eye Exam Eye Exam: EOMI, Normal appearance - ENT Exam ENT Exam: Mucous Membranes Moist - Neck Exam Neck Exam: Full ROM - Respiratory Exam Respiratory Exam: Clear to Ausculation Bilateral, NORMAL BREATHING PATTERN - Cardiovascular Exam Cardiovascular Exam: Irregular Rhythm, RRR, +S1, +S2 - GI/Abdominal Exam GI & Abdominal Exam: Soft, Normal Bowel Sounds. absent: Tenderness - Extremities Exam Extremities Exam: Normal Inspection Additional comments: venous ulcer measurements are 5 x 2.3 x 0.5 cm. on left left ankle edema C/D/I dressing - Neurological Exam Neurological Exam: Alert, Awake, Oriented x3 - Psychiatric Exam Psychiatric exam: Normal Affect, Normal Mood - Skin Skin Exam: Intact, Warm. absent: Normal Color Additional comments: ecchymosis covering left side of chest wall down into left arm to elbow Assessment and Plan - Assessment and Plan (Free Text) Assessment: 3) History of Aortic Stenosis s/p TAVR 2014 Coronary Artery Disease + Stent History of Pacemaker Cardiomyopathy Assessment/Plan * AICD placed at [facility] on 02/15/18 * monitor on telemetry * Patient's outpatient regional operations manager, Dr. Hawk Byrd, does not come here---> will f/u holter (see notes above) * BNP 1937 * Measure daily weights, Is/Os Imaging: * Echo 02/13 - technically difficult and limited study, LV severely dialted, mild asymmetric left ventricular hypertrophy, left ventricle systolic function mildly impaired, EF 40%, global hypokinesis of left ventricle, left ventricle diastolic function is normal (see full report) * MUGA 02/14 - EF 29% * Continue home medications * Lopressor 75mg daily * Crestor 5mg POqHS * Lasix 40mg po daily * Plavix 75mg po daily * Xarelto to be held due to ecchymosis * Patient needs to work with PT Atrial Fibrillation Assessment/Plan * CHADS: 3 * Hold Xarelto 10mg PO daily due to ecchymosis * Metoprolol Tartrate 75mg PO daily <Jose L Vu - Last Filed: 02/18/18 23:36> Objective - Vital Signs/Intake and Output Vital Signs (last 24 hours): Temp Pulse Resp BP Pulse Ox 97.7 F 124 H 20 112/63 95 02/18/18 15:00 02/18/18 18:00 02/18/18 15:00 02/18/18 15:00 02/18/18 15:00 - Medications Medications: Current Medications Acetaminophen (Tylenol 325mg Tab) 650 mg PO [facility] Last Admin: 02/18/18 21:31 Dose: 650 mg Albuterol/Ipratropium (Duoneb 3 Mg/0.5 Mg (3 Ml) Ud) 3 ml INH RQ4 PRN PRN Reason: Shortness of Breath Alprazolam (Xanax) 0.25 mg PO DAILY PRN PRN Reason: Anxiety Stop: 02/21/18 23:59 Last Admin: 02/14/18 07:24 Dose: 0.25 mg Clopidogrel Bisulfate (Plavix) 75 mg PO DAILY [facility] Last Admin: 02/18/18 10:55 Dose: 75 mg Fluoxetine HCl (Prozac) 20 mg PO DAILY [facility] Last Admin: 02/18/18 10:55 Dose: 20 mg Furosemide (Lasix) 40 mg PO DAILY [facility] Last Admin: 02/18/18 10:54 Dose: 40 mg Losartan Potassium (Cozaar) 25 mg PO DAILY [facility] Last Admin: 02/18/18 10:55 Dose: Not Given Metoprolol Tartrate (Lopressor) 75 mg PO DAILY [facility] Last Admin: 02/18/18 10:54 Dose: Not Given Pantoprazole Sodium (Protonix Ec Tab) 40 mg PO DAILY [facility] Last Admin: 02/18/18 10:55 Dose: 40 mg Rivaroxaban (Xarelto) 10 mg PO DAILY [facility] Last Admin: 02/17/18 10:33 Dose: 10 mg Rosuvastatin Calcium (Crestor) 5 mg PO HS [facility] Last Admin: 02/18/18 21:31 Dose: 5 mg - Labs Labs: 02/18/18 06:23 02/18/18 06:23 PT 15.5 SECONDS (9.7-12.2) H 02/18/18 06:23 INR 1.4 02/18/18 06:23 APTT 45 SECONDS (21-34) H 02/11/18 17:20 Assessment and Plan - Assessment and Plan (Free Text) Assessment: Patient seen and evaluated personally by me Plan of d/w the medical assistant supervisor and as documented
--- NOTE | 2018-02-18 20:20 | CP.PCM.PN ---
<Xena Greene - Last Filed: 02/18/18 22:34> Subjective - Date & Time of Evaluation Date of Evaluation: 02/18/18 Time of Evaluation: 11:00 - Subjective Subjective: Progress note for hospitalist service Patient seen and examined at bedside. He states that he is no longer as short of breath. He denies chest pain, however states that he has extensive bruising on his chest and left arm after he had AICD placement at [facility] yesterday. He denies headache, nausea, vomiting, abdominal pain. he is eager to go home. Objective - Vital Signs/Intake and Output Vital Signs (last 24 hours): Temp Pulse Resp BP Pulse Ox 97.7 F 124 H 20 112/63 95 02/18/18 15:00 02/18/18 18:00 02/18/18 15:00 02/18/18 15:00 02/18/18 15:00 - Medications Medications: Current Medications Acetaminophen (Tylenol 325mg Tab) 650 mg PO [facility] Last Admin: 02/17/18 21:02 Dose: 650 mg Albuterol/Ipratropium (Duoneb 3 Mg/0.5 Mg (3 Ml) Ud) 3 ml INH RQ4 PRN PRN Reason: Shortness of Breath Alprazolam (Xanax) 0.25 mg PO DAILY PRN PRN Reason: Anxiety Stop: 02/21/18 23:59 Last Admin: 02/14/18 07:24 Dose: 0.25 mg Clopidogrel Bisulfate (Plavix) 75 mg PO DAILY [facility] Last Admin: 02/18/18 10:55 Dose: 75 mg Fluoxetine HCl (Prozac) 20 mg PO DAILY [facility] Last Admin: 02/18/18 10:55 Dose: 20 mg Furosemide (Lasix) 40 mg PO DAILY [facility] Last Admin: 02/18/18 10:54 Dose: 40 mg Losartan Potassium (Cozaar) 25 mg PO DAILY [facility] Last Admin: 02/18/18 10:55 Dose: Not Given Metoprolol Tartrate (Lopressor) 75 mg PO DAILY [facility] Last Admin: 02/18/18 10:54 Dose: Not Given Pantoprazole Sodium (Protonix Ec Tab) 40 mg PO DAILY [facility] Last Admin: 02/18/18 10:55 Dose: 40 mg Rivaroxaban (Xarelto) 10 mg PO DAILY [facility] Last Admin: 02/17/18 10:33 Dose: 10 mg Rosuvastatin Calcium (Crestor) 5 mg PO HS [facility] Last Admin: 02/17/18 21:02 Dose: 5 mg - Labs Labs: 02/18/18 06:23 02/18/18 06:23 PT 15.5 SECONDS (9.7-12.2) H 02/18/18 06:23 INR 1.4 02/18/18 06:23 APTT 45 SECONDS (21-34) H 02/11/18 17:20 - Constitutional Appears: No Acute Distress - Head Exam Head Exam: NORMAL INSPECTION - Eye Exam Eye Exam: EOMI - ENT Exam ENT Exam: Mucous Membranes Moist - Respiratory Exam Respiratory Exam: Clear to Ausculation Bilateral, NORMAL BREATHING PATTERN - Cardiovascular Exam Cardiovascular Exam: REGULAR RHYTHM, +S1, +S2 Additional comments: Extensive ecchymoses on chest and left upper extremity. - GI/Abdominal Exam GI & Abdominal Exam: Soft, Normal Bowel Sounds. absent: Distended, Firm, Guarding, Rigid, Tenderness - Extremities Exam Additional comments: Left lower extremity wrapped - left heel ulcer. - Neurological Exam Neurological Exam: Alert, Awake, Oriented x3 Assessment and Plan - Assessment and Plan (Free Text) Plan: Assessment/plan 1) Dyspnea Assessment/Plan * Cardiology (Dr. Vu) on case help appreciated * Monitor on telemetry * Pertinent positive: s/p TAVR (2014), Atrial fibrillation (on AC), Pacemaker , Smoking history * Pacemaker placed in 03/2015 - last interrogated was last week, reports his sql ssrs developer Dr Byrd told him at that time there was an issue with his pacemaker and that it needs to be rechecked. Patient completed Holter with Dr. Byrd; No V-tachy noted per discussion. * Duonebs PRN shortness of breathe * D-dimer: negative * Elevated probnp * Troponin X3 2) Atrial Fibrillation Assessment/Plan * CHADS: 3 * Patient is on Xarelto 10mg PO daily--> HELD DUE TO EXTENSIVE ECCHYMOSIS * Metoprolol Tartrate 75mg PO daily * Echo 02/13 - technically difficult and limited study, LV severely dialted, mild asymmetric left ventricular hypertrophy, left ventricle systolic function mildly impaired, EF 40%, global hypokinesis of left ventricle, left ventricle diastolic function is normal (see full report) 3) History of Aortic Stenosis s/p TAVR 2014 with low Ejection Fraction Coronary Artery Disease + Stent History of Pacemaker Cardiomyopathy Assessment/Plan * monitor on telemetry * Patient's outpatient sql ssrs developer, Dr. Hawk Byrd * Echo 02/13 - technically difficult and limited study, LV severely dialted, mild asymmetric left ventricular hypertrophy, left ventricle systolic function mildly impaired, EF 40%, global hypokinesis of left ventricle, left ventricle diastolic function is normal (see full report) * MUGA 02/14 - EF 29% * Patient will need AICD given low Ejection Fraction noted by echo and MUGA * Patient had placement of AICD at [facility] over the weekend * Patient had noted ecchymoses over the site with tenderness to palpation * BNP 1937 * Measure daily weights, Is/Os * Continue home medications * Lopressor 75mg daily * Crestor 5mg POqHS * Plavix 75mg daily * Lasix 40mg daily * Crestor 5mg POqHS * Hold Xarelto, as per Dr. Horace starks 4) Hypertension Assessment/Plan * Monitor vital signs * Cozaar 25mg daily * Lopressor 75mg daily 5) Left heel ulcer Assessment/Plan * Patient's private supervisor drapery hanging, Dr Kenney who he sees routinely for Darkin solution * Patient has pending appointment on SundayFebruary 19 * Daily dressing changes 6) Peripheral Vascular Disease Assessment/Plan * 2 veins removed in his left lower extremity (10/2017 and 2014) 7) History of Gastritis * Pantoprazole 40mg dialy 8) History of Depression * Fluoxetine 20mg PO daily 9) Prophylaxis * Protonix 40mg PO daily * Xarelto 10mg dialy * SCDs * PT eval and treat * Patient is for home upon discharge * Patient needs home services for PT Xena Greene, PGY1 Case discussed with Dr. Lai <Keke Lai V - Last Filed: 02/19/18 10:00> Objective - Vital Signs/Intake and Output Vital Signs (last 24 hours): Temp Pulse Resp BP Pulse Ox 97.4 F L 113 H 20 145/80 98 02/19/18 07:45 02/19/18 07:45 02/19/18 07:45 02/19/18 07:45 02/19/18 07:45 - Medications Medications: Current Medications Acetaminophen (Tylenol 325mg Tab) 650 mg PO HS [facility] Last Admin: 02/18/18 21:31 Dose: 650 mg Albuterol/Ipratropium (Duoneb 3 Mg/0.5 Mg (3 Ml) Ud) 3 ml INH RQ4 PRN PRN Reason: Shortness of Breath Alprazolam (Xanax) 0.25 mg PO DAILY PRN PRN Reason: Anxiety Stop: 02/21/18 23:59 Last Admin: 02/14/18 07:24 Dose: 0.25 mg Clopidogrel Bisulfate (Plavix) 75 mg PO DAILY [facility] Last Admin: 02/18/18 10:55 Dose: 75 mg Fluoxetine HCl (Prozac) 20 mg PO DAILY [facility] Last Admin: 02/18/18 10:55 Dose: 20 mg Furosemide (Lasix) 40 mg PO DAILY [facility] Last Admin: 02/18/18 10:54 Dose: 40 mg Magnesium Sulfate/Dextrose (Magnesium Sulfate 1 Gm/100 Ml D5w) 1 gm in 100 mls @ 300 mls/hr IVPB Q30M [facility] Stop: 02/19/18 10:34 Losartan Potassium (Cozaar) 25 mg PO DAILY [facility] Last Admin: 02/18/18 10:55 Dose: Not Given Metoprolol Tartrate (Lopressor) 75 mg PO DAILY [facility] Last Admin: 02/18/18 10:54 Dose: Not Given Pantoprazole Sodium (Protonix Ec Tab) 40 mg PO DAILY [facility] Last Admin: 02/18/18 10:55 Dose: 40 mg Rivaroxaban (Xarelto) 10 mg PO DAILY [facility] Last Admin: 02/17/18 10:33 Dose: 10 mg Rosuvastatin Calcium (Crestor) 5 mg PO HS [facility] Last Admin: 02/18/18 21:31 Dose: 5 mg - Labs Labs: 02/19/18 06:57 02/19/18 06:57 PT 15.5 SECONDS (9.7-12.2) H 02/18/18 06:23 INR 1.4 02/18/18 06:23 APTT 45 SECONDS (21-34) H 02/11/18 17:20 Attending/Attestation - Attestation I have personally seen and examined this patient.: Yes I have fully participated in the care of the patient.: Yes I have reviewed all pertinent clinical information, including history, physical exam and plan: Yes Notes (Text): This is a late computer entry for 02/18/2018. Patient seen, examined, case discussed with site medical director. Patient seen this morning reports mild tenderness around the AICD with some swelling. Ecchymosis still present. Xarelto being held since yesterday. Patient to be reevaluated by physical therapy and occupational therapy. Patient is insistent on on been able to go home on discharge. I noted a note for occupational therapy to not work for the left upper extremity to not dislodge leads from the AICD. Patient is for possible discharge Sunday or pending cardiac clearance. Assessment/Plan 1) Dyspnea Assessment/Plan * Cardiology (Dr. Vu) on case help appreciated * Monitor on telemetry * Pertinent positive: s/p TAVR (2014), Atrial fibrillation (on AC), Pacemaker , Smoking history * Pacemaker placed in 03/2015 - last interrogated was last week, reports his sql ssrs developer Dr Byrd told him at that time there was an issue with his pacemaker and that it needs to be rechecked. Patient completed Holter with Dr. Byrd; No V-tachy noted per discussion. * Duonebs PRN shortness of breathe * D-dimer: negative * Elevated probnp * Troponin X3 2) Atrial Fibrillation Assessment/Plan * CHADS: 3 * Patient is on Xarelto 10mg PO daily-->to be resumed today * Metoprolol Tartrate 75mg PO daily * Echo 02/13 - technically difficult and limited study, LV severely dialted, mild asymmetric left ventricular hypertrophy, left ventricle systolic function mildly impaired, EF 40%, global hypokinesis of left ventricle, left ventricle diastolic function is normal (see full report) 3) History of Aortic Stenosis s/p TAVR 2014 with low Ejection Fraction Coronary Artery Disease + Stent History of Pacemaker Cardiomyopathy Assessment/Plan * monitor on telemetry * Patient's outpatient sql ssrs developer, Dr. Hawk Byrd * Echo 02/13 - technically difficult and limited study, LV severely dialted, mild asymmetric left ventricular hypertrophy, left ventricle systolic function mildly impaired, EF 40%, global hypokinesis of left ventricle, left ventricle diastolic function is normal (see full report) * MUGA 02/14 - EF 29% * Patient will need AICD given low Ejection Fraction noted by echo and MUGA * Patient had placement of AICD at [facility] over the weekend * Patient had noted ecchymoses over the site with tenderness to palpation * Xarelto secondary to extensive ecchymoses * BNP 1937 * Measure daily weights, Is/Os * Continue home medications * Lopressor 75mg daily * Crestor 5mg POqHS * Plavix 75mg daily * Lasix 40mg daily * Crestor 5mg POqHS 4) Hypertension Assessment/Plan * Monitor vital signs * Cozaar 25mg daily * Lopressor 75mg daily 5) Left heel ulcer Assessment/Plan * Patient's private supervisor drapery hanging, Dr Keneny who he sees routinely for Darkin solution * Patient has pending appointment on SundayFebruary 19 * Daily dressing changes 6) Peripheral Vascular Disease Assessment/Plan * 2 veins removed in his left lower extremity (10/2017 and 2014) 7) History of Gastritis * Pantoprazole 40mg dialy 8) History of Depression * Fluoxetine 20mg PO daily 9) Prophylaxis * Protonix 40mg PO daily * held Xarelto 10mg daily secondary to extensive ecchymoses * SCDs * PT eval and treat * Patient is for home upon discharge Disposition: Patient would like to home on discharge. We will need to f/u with case management and social in regards for home services and nursing care at home. We will f/u with cardiology for clearance for discharge planning .
--- NOTE | 2018-02-19 07:02 | CP.PCM.PN ---
<Xena Greene - Last Filed: 02/19/18 20:07> Subjective - Date & Time of Evaluation Date of Evaluation: 02/19/18 Time of Evaluation: : - Subjective Subjective: Progress note for Hospitalist service Patient seen and examined at bedside this morning. He states he feels dizzy. He denies chest pain, palpitations, shortness of breath, headache, neck pain, abdominal pain. Ecchymosis on left arm and chest s/p AICD placement is resolving. Objective - Vital Signs/Intake and Output Vital Signs (last 24 hours): Temp Pulse Resp BP Pulse Ox 97.6 F 114 H 20 122/80 97 02/18/18 23:40 02/19/18 03:51 02/18/18 23:40 02/18/18 23:40 02/18/18 23:40 - Medications Medications: Current Medications Acetaminophen (Tylenol 325mg Tab) 650 mg PO [facility] Last Admin: 02/18/18 21:31 Dose: 650 mg Albuterol/Ipratropium (Duoneb 3 Mg/0.5 Mg (3 Ml) Ud) 3 ml INH RQ4 PRN PRN Reason: Shortness of Breath Alprazolam (Xanax) 0.25 mg PO DAILY PRN PRN Reason: Anxiety Stop: 02/21/18 23:59 Last Admin: 02/14/18 07:24 Dose: 0.25 mg Clopidogrel Bisulfate (Plavix) 75 mg PO DAILY [facility] Last Admin: 02/18/18 10:55 Dose: 75 mg Fluoxetine HCl (Prozac) 20 mg PO DAILY [facility] Last Admin: 02/18/18 10:55 Dose: 20 mg Furosemide (Lasix) 40 mg PO DAILY [facility] Last Admin: 02/18/18 10:54 Dose: 40 mg Losartan Potassium (Cozaar) 25 mg PO DAILY [facility] Last Admin: 02/18/18 10:55 Dose: Not Given Metoprolol Tartrate (Lopressor) 75 mg PO DAILY [facility] Last Admin: 02/18/18 10:54 Dose: Not Given Pantoprazole Sodium (Protonix Ec Tab) 40 mg PO DAILY [facility] Last Admin: 02/18/18 10:55 Dose: 40 mg Rivaroxaban (Xarelto) 10 mg PO DAILY [facility] Last Admin: 02/17/18 10:33 Dose: 10 mg Rosuvastatin Calcium (Crestor) 5 mg PO [facility] Last Admin: 02/18/18 21:31 Dose: 5 mg - Labs Labs: 02/18/18 06:23 02/18/18 06:23 PT 15.5 SECONDS (9.7-12.2) H 02/18/18 06:23 INR 1.4 02/18/18 06:23 APTT 45 SECONDS (21-34) H 02/11/18 17:20 - Constitutional Appears: No Acute Distress - Head Exam Head Exam: ATRAUMATIC, NORMOCEPHALIC - Eye Exam Eye Exam: EOMI - ENT Exam ENT Exam: Mucous Membranes Moist - Respiratory Exam Respiratory Exam: Clear to Ausculation Bilateral, NORMAL BREATHING PATTERN - Cardiovascular Exam Cardiovascular Exam: Irregular Rhythm, +S1, +S2 Additional comments: significant ecchymosis to left arm and chest that is resolving. AICD in place. - GI/Abdominal Exam GI & Abdominal Exam: Soft, Normal Bowel Sounds. absent: Distended, Firm, Guarding, Rigid, Tenderness - Extremities Exam Extremities Exam: absent: Calf Tenderness, Pedal Edema Additional comments: ecchymosis to forearms that is resolving. (+) left heel ulcer medially. - Neurological Exam Neurological Exam: Alert, Awake, Oriented x3 - Skin Additional comments: ecchymosis to chest and left arm s/p AICD placement. Assessment and Plan - Assessment and Plan (Free Text) Plan: Assessment/Plan 1) Dyspnea Assessment/Plan * Cardiology (Dr. Vu) on case help appreciated * Dr. Vu agreed to start Xarelto 02/20/18 * Monitor on telemetry * Pertinent positive: s/p TAVR (2014), Atrial fibrillation (on AC), Pacemaker , Smoking history * Pacemaker placed in 03/2015 - last interrogated was last week, reports his health analyst Dr Byrd told him at that time there was an issue with his pacemaker and that it needs to be rechecked. Patient completed Holter with Dr. Byrd; No V-tachy noted per discussion. * Duonebs PRN shortness of breath * D-dimer: negative * Elevated probnp * Troponin X3 2) Atrial Fibrillation Assessment/Plan * CHADS: 3 * Patient is on Xarelto 10mg PO daily--> HELD DUE TO ECCHYMOSIS, can be restarted on 02/20/18 * Metoprolol Tartrate 75mg PO daily * Echo 02/13 - technically difficult and limited study, LV severely dialted, mild asymmetric left ventricular hypertrophy, left ventricle systolic function mildly impaired, EF 40%, global hypokinesis of left ventricle, left ventricle diastolic function is normal (see full report) * Repeat EKG 02/19/18: A fib with RVR 106, LBBB. LBBB unchanged from prior EKG on 02/12 * Lopressor 75mg PO given 3) History of Aortic Stenosis s/p TAVR 2014 with low Ejection Fraction Coronary Artery Disease + Stent History of Pacemaker Cardiomyopathy Assessment/Plan * monitor on telemetry * Patient's outpatient health analyst, Dr. Hawk Byrd * Echo 02/13 - technically difficult and limited study, LV severely dialted, mild asymmetric left ventricular hypertrophy, left ventricle systolic function mildly impaired, EF 40%, global hypokinesis of left ventricle, left ventricle diastolic function is normal (see full report) * MUGA 02/14 - EF 29% * Patient will need AICD given low Ejection Fraction noted by echo and MUGA * Patient had placement of AICD at [facility] over the weekend * Patient had noted ecchymoses over the site with tenderness to palpation * Xarelto held secondary to extensive ecchymoses, can be started 02/20/[address] Vu. * BNP 1937 * Measure daily weights, Is/Os * Continue home medications * Lopressor 75mg daily * Crestor 5mg POqHS * Plavix 75mg daily * Lasix 40mg daily * Crestor 5mg POqHS 4) Hypertension Assessment/Plan * Monitor vital signs * Cozaar 25mg daily * Lopressor 75mg daily 5) Left heel ulcer Assessment/Plan * Patient's private medical insurance collector, Dr Kenney who he sees routinely for Darkin solution * Patient has pending appointment on SundayFebruary 19 * Daily dressing changes 6) Peripheral Vascular Disease Assessment/Plan * 2 veins removed in his left lower extremity (10/2017 and 2014) 7) History of Gastritis * Pantoprazole 40mg daily 8) History of Depression * Fluoxetine 20mg PO daily 9) Prophylaxis * Protonix 40mg PO daily * held Xarelto 10mg daily secondary to extensive ecchymoses * SCDs * PT eval and treat * Case management consulted for subacute rehab evaluation, awaiting authorization. Disposition: Patient is open to subacute rehab. We will need to f/u with case management and social in regards for home services and nursing care at home. We will f/u with cardiology for clearance for discharge planning . <Keke Lai V - Last Filed: 02/20/18 14:54> Objective - Vital Signs/Intake and Output Vital Signs (last 24 hours): Temp Pulse Resp BP Pulse Ox 98.0 F 77 20 135/79 98 02/20/18 07:00 02/20/18 11:48 02/20/18 07:00 02/20/18 10:34 02/20/18 07:00 Intake and Output: 02/20/18 02/20/18 06:59 18:59 Intake Total 400 Output Total 325 Balance 75 - Medications Medications: Current Medications Acetaminophen (Tylenol 325mg Tab) 650 mg PO HS [facility] Last Admin: 02/19/18 21:41 Dose: 650 mg Albuterol/Ipratropium (Duoneb 3 Mg/0.5 Mg (3 Ml) Ud) 3 ml INH RQ4 PRN PRN Reason: Shortness of Breath Clopidogrel Bisulfate (Plavix) 75 mg PO DAILY [facility] Last Admin: 02/20/18 10:34 Dose: 75 mg Diphenhydramine HCl (Benadryl) 25 mg IVP Q8 [facility] Stop: 02/21/18 14:01 Fluoxetine HCl (Prozac) 20 mg PO DAILY [facility] Last Admin: 02/20/18 10:34 Dose: 20 mg Furosemide (Lasix) 40 mg PO DAILY [facility] Last Admin: 02/20/18 10:34 Dose: 40 mg Losartan Potassium (Cozaar) 25 mg PO DAILY [facility] Last Admin: 02/20/18 10:34 Dose: 25 mg Methylprednisolone (Solu-Medrol) 40 mg IVP Q8 [facility] Stop: 02/21/18 14:01 Metoprolol Tartrate (Lopressor) 75 mg PO DAILY [facility] Last Admin: 02/20/18 10:34 Dose: 75 mg Pantoprazole Sodium (Protonix Ec Tab) 40 mg PO DAILY [facility] Last Admin: 02/20/18 10:34 Dose: 40 mg Rivaroxaban (Xarelto) 10 mg PO DAILY [facility] Rosuvastatin Calcium (Crestor) 5 mg PO [facility] Last Admin: 02/19/18 21:41 Dose: 5 mg - Labs Labs: 02/20/18 07:15 02/20/18 07:15 PT 15.5 SECONDS (9.7-12.2) H 02/18/18 06:23 INR 1.4 02/18/18 06:23 APTT 45 SECONDS (21-34) H 02/11/18 17:20 Attending/Attestation - Attestation I have personally seen and examined this patient.: Yes I have fully participated in the care of the patient.: Yes I have reviewed all pertinent clinical information, including history, physical exam and plan: Yes Notes (Text): This is a late computer entry for 02/19/2018. Patient seen, examined, case discussed with medical insurance collector. Patient seen this morning reports mild tenderness around the AICD with some swelling. Ecchymosis still present mildly improving. Xarelto being held. Discussed with cardiology, recommends to start tomorrow. Patient has changed his mind and wants to go to rehab. We have placed a subacute rehab evaluation and will need to f/u with social and case management to receive authorization for rehab. Assessment/Plan 1) Dyspnea Assessment/Plan * Cardiology (Dr. Vu) on case help appreciated * Monitor on telemetry * Pertinent positive: s/p TAVR (2014), Atrial fibrillation (on AC), Pacemaker , Smoking history * Pacemaker placed in 03/2015 - last interrogated was last week, reports his health analyst Dr Byrd told him at that time there was an issue with his pacemaker and that it needs to be rechecked. Patient completed Holter with Dr. Byrd; No V-tachy noted per discussion. * AICD placed on 02/15/18 * Restart Xarelto 02/20/18 * Duonebs PRN shortness of breathe * D-dimer: negative * Elevated probnp * Troponin X3 2) Atrial Fibrillation Assessment/Plan * CHADS: 3 * Patient is on Xarelto 10mg PO daily-->to be resumed 02/20/18 * Metoprolol Tartrate 75mg PO daily * Echo 02/13 - technically difficult and limited study, LV severely dialted, mild asymmetric left ventricular hypertrophy, left ventricle systolic function mildly impaired, EF 40%, global hypokinesis of left ventricle, left ventricle diastolic function is normal (see full report) 3) History of Aortic Stenosis s/p TAVR 2014 with low Ejection Fraction Coronary Artery Disease + Stent History of Pacemaker Cardiomyopathy Assessment/Plan * monitor on telemetry * Patient's outpatient health analyst, Dr. Hawk Byrd * Echo 02/13 - technically difficult and limited study, LV severely dialted, mild asymmetric left ventricular hypertrophy, left ventricle systolic function mildly impaired, EF 40%, global hypokinesis of left ventricle, left ventricle diastolic function is normal (see full report) * MUGA 02/14 - EF 29% * Patient will need AICD given low Ejection Fraction noted by echo and MUGA * Patient had placement of AICD at [place] over the weekend * Patient had noted ecchymoses over the site with tenderness to palpation * held Xarelto secondary to extensive ecchymoses by cardio-->recommend to restart 02/20/18 * BNP 1937 * Measure daily weights, Is/Os * Continue home medications * Lopressor 75mg daily * Crestor 5mg POqHS * Plavix 75mg daily * Lasix 40mg daily * Crestor 5mg POqHS 4) Hypertension Assessment/Plan * Monitor vital signs * Cozaar 25mg daily * Lopressor 75mg daily 5) Left heel ulcer Assessment/Plan * Patient's private medical insurance collector, Dr Kenney who he sees routinely for Darkin solution * Patient has pending appointment on SundayFebruary 19 * Daily dressing changes 6) Peripheral Vascular Disease Assessment/Plan * 2 veins removed in his left lower extremity (10/2017 and 2014) 7) History of Gastritis * Pantoprazole 40mg dialy 8) History of Depression * Fluoxetine 20mg PO daily 9) Prophylaxis * Protonix 40mg PO daily * held Xarelto 10mg daily secondary to extensive ecchymoses--->to restart 02/20/18 * SCDs * PT eval and treat * Changed mind to subacute rehab eval for discharge planning Disposition: Patient is amenable to subacute rehab eval. Patient to have xarelto restarted on 02/20/18.
[2018-02-19 07:13] LABS: BASO # 0.1 K/uL (0.0-0.2); EOS # 0.3 K/uL (0.0-0.7); EOS % 4.7 % (0.0-4.0); HEMOGLOBIN 13.8 g/dL (12.0-18.0); LYMPH # 0.6 K/uL (1.0-4.3); LYMPH % 8.7 % (20.0-40.0); MEAN CELL VOLUME 96.1 fL (80.0-94.0); MEAN CORPUSCULAR HEMOGLOBIN 32.4 pg (27.0-31.0); MEAN CORPUSCULAR HGB CONC 33.8 g/dL (33.0-37.0); MEAN PLATELET VOLUME 8.9 fL (7.2-11.7); MONO # 1.1 K/uL (0.0-0.8); MONO % 15.3 % (0.0-10.0); NEUT # 4.9 K/uL (1.8-7.0); NEUT % 70.3 % (50.0-75.0); PLATELET COUNT 219 K/uL (130-400); RBC 4.26 Mil/uL (4.40-5.90); RED CELL DISTRIBUTION WIDTH 14.7 % (11.5-14.5)
[2018-02-19 08:11] LABS: ALB/GLOB RATIO 1.2 (1.0-2.1); ALBUMIN 3.9 g/dL (3.5-5.0); ALT/SGPT 42 U/L (21-72); AST/SGOT 58 U/L (17-59); BLOOD UREA NITROGEN 20 mg/dL (9-20); CALCIUM 8.7 mg/dl (8.6-10.4); GFR AFRICAN-AMERICAN > 60; GFR NON-AFRICAN AMERICAN > 60
[2018-02-19 08:51] LABS: EOSINOPHIL 4 % (0-4); LYMPHOCYTE 7 % (20-40); MONOCYTE 10 % (0-10); NEUTROPHIL 79 % (50-75); PLATELET ESTIMATE NORMAL (NORMAL); TOTAL CELLS COUNTED 100
[2018-02-19] MEDS ORDERED: Potassium Chloride 20 mEq ER Tab PO STA (09:31)
[2018-02-19] MEDS ORDERED: Potassium Chloride 20 mEq ER Tab PO ONE (09:45)
[2018-02-19] MEDS: Pantoprazole 40 mg EC Tab PO SCH (10:53)
[2018-02-19] MEDS: Magnesium Sulfate 1 gm in D5W 1 GM/100 ML BAG IVPB SCH ×2 (10:53→12:33)
--- NOTE | 2018-02-19 13:10 | CP.PCM.PCO ---
Physician Communication Note - Physician Communication Note Physician Communication Note: patient is amenable to subacute rehab. f/u with case management
--- NOTE | 2018-02-19 20:33 | CP.PCM.PN ---
Subjective - Date & Time of Evaluation Date of Evaluation: 02/19/18 Time of Evaluation: 13:05 - Subjective Subjective: Patient seen and examined at bedside and in no acute distress. Patient says he has no chest pain, shortness of breath or palpitations. Patient does admits to chest wall soreness in the region of his ecchymosis. Physical examination - Constitutional Appears: Non-toxic, No Acute Distress - Head Exam Head Exam: ATRAUMATIC, NORMAL INSPECTION, NORMOCEPHALIC - Eye Exam Eye Exam: EOMI, Normal appearance - ENT Exam ENT Exam: Mucous Membranes Moist - Neck Exam Neck Exam: Full ROM - Respiratory Exam Respiratory Exam: Clear to Ausculation Bilateral, NORMAL BREATHING PATTERN - Cardiovascular Exam Cardiovascular Exam: Irregular Rhythm, RRR, +S1, +S2 - GI/Abdominal Exam GI & Abdominal Exam: Soft, Normal Bowel Sounds. absent: Tenderness - Extremities Exam Extremities Exam: Normal Inspection Additional comments: venous ulcer measurements are 5 x 2.3 x 0.5 cm. on left left ankle edema C/D/I dressing - Neurological Exam Neurological Exam: Alert, Awake, Oriented x3 - Psychiatric Exam Psychiatric exam: Normal Affect, Normal Mood - Skin Skin Exam: Intact, Warm. absent: Normal Color Additional comments: ecchymosis covering left side of chest wall down into left arm to elbow Objective - Vital Signs/Intake and Output Vital Signs (last 24 hours): Temp Pulse Resp BP Pulse Ox 97.3 F L 80 20 94/59 L 98 02/19/18 15:07 02/19/18 15:07 02/19/18 15:07 02/19/18 15:07 02/19/18 15:07 Intake and Output: 02/19/18 02/20/18 18:59 06:59 Intake Total 600 Balance 600 - Medications Medications: Current Medications Acetaminophen (Tylenol 325mg Tab) 650 mg PO HS [facility] Last Admin: 02/18/18 21:31 Dose: 650 mg Albuterol/Ipratropium (Duoneb 3 Mg/0.5 Mg (3 Ml) Ud) 3 ml INH RQ4 PRN PRN Reason: Shortness of Breath Alprazolam (Xanax) 0.25 mg PO DAILY PRN PRN Reason: Anxiety Stop: 02/21/18 23:59 Last Admin: 02/14/18 07:24 Dose: 0.25 mg Clopidogrel Bisulfate (Plavix) 75 mg PO DAILY [facility] Last Admin: 02/19/18 10:53 Dose: 75 mg Fluoxetine HCl (Prozac) 20 mg PO DAILY [facility] Last Admin: 02/19/18 10:52 Dose: 20 mg Furosemide (Lasix) 40 mg PO DAILY [facility] Last Admin: 02/19/18 10:54 Dose: 40 mg Losartan Potassium (Cozaar) 25 mg PO DAILY [facility] Last Admin: 02/19/18 10:54 Dose: 25 mg Metoprolol Tartrate (Lopressor) 75 mg PO DAILY [facility] Last Admin: 02/19/18 10:54 Dose: 75 mg Pantoprazole Sodium (Protonix Ec Tab) 40 mg PO DAILY [facility] Last Admin: 02/19/18 10:53 Dose: 40 mg Rivaroxaban (Xarelto) 10 mg PO DAILY [facility] Last Admin: 02/17/18 10:33 Dose: 10 mg Rosuvastatin Calcium (Crestor) 5 mg PO HS [facility] Last Admin: 02/18/18 21:31 Dose: 5 mg - Labs Labs: 02/19/18 06:57 02/19/18 06:57 PT 15.5 SECONDS (9.7-12.2) H 02/18/18 06:23 INR 1.4 02/18/18 06:23 APTT 45 SECONDS (21-34) H 02/11/18 17:20 Assessment and Plan - Assessment and Plan (Free Text) Assessment: History of Aortic Stenosis s/p TAVR 2014 Coronary Artery Disease + Stent History of Pacemaker Cardiomyopathy Assessment/Plan * AICD placed at [facility] on 02/15/18 * monitor on telemetry * Patient's outpatient metal tank erector, Dr. Hawk Byrd, does not come here---> will f/u holter (see notes above) * BNP 194 * Measure daily weights, Is/Os Imaging: * Echo 02/13 - technically difficult and limited study, LV severely dialted, mild asymmetric left ventricular hypertrophy, left ventricle systolic function mildly impaired, EF 40%, global hypokinesis of left ventricle, left ventricle diastolic function is normal (see full report) * MUGA 02/14 - EF 29% * Continue home medications * Lopressor 75mg daily * Crestor 5mg POqHS * Lasix 40mg po daily * Plavix 75mg po daily * Xarelto to be held due to ecchymosis * Patient needs to work with PT Atrial Fibrillation Assessment/Plan * CHADS: 3 * Hold Xarelto 10mg PO daily due to ecchymosis * Metoprolol Tartrate 75mg PO daily
--- NOTE | 2018-02-20 07:20 | CP.PCM.PN ---
<Keke Lai V - Last Filed: 02/20/18 14:54> Objective - Vital Signs/Intake and Output Vital Signs (last 24 hours): Temp Pulse Resp BP Pulse Ox 98.0 F 77 20 135/79 98 02/20/18 07:00 02/20/18 11:48 02/20/18 07:00 02/20/18 10:34 02/20/18 07:00 Intake and Output: 02/20/18 02/20/18 06:59 18:59 Intake Total 400 Output Total 325 Balance 75 - Medications Medications: Current Medications Acetaminophen (Tylenol 325mg Tab) 650 mg PO HS [facility] Last Admin: 02/19/18 21:41 Dose: 650 mg Albuterol/Ipratropium (Duoneb 3 Mg/0.5 Mg (3 Ml) Ud) 3 ml INH RQ4 PRN PRN Reason: Shortness of Breath Clopidogrel Bisulfate (Plavix) 75 mg PO DAILY [facility] Last Admin: 02/20/18 10:34 Dose: 75 mg Diphenhydramine HCl (Benadryl) 25 mg IVP Q8 [facility]FI[facility] Stop: 02/21/18 14:01 Fluoxetine HCl (Prozac) 20 mg PO DAILY [facility] Last Admin: 02/20/18 10:34 Dose: 20 mg Furosemide (Lasix) 40 mg PO DAILY [facility] Last Admin: 02/20/18 10:34 Dose: 40 mg Losartan Potassium (Cozaar) 25 mg PO DAILY [facility] Last Admin: 02/20/18 10:34 Dose: 25 mg Methylprednisolone (Solu-Medrol) 40 mg IVP Q8 RAFIQ Stop: 02/21/18 14:01 Metoprolol Tartrate (Lopressor) 75 mg PO DAILY [facility] Last Admin: 02/20/18 10:34 Dose: 75 mg Pantoprazole Sodium (Protonix Ec Tab) 40 mg PO DAILY [facility] Last Admin: 02/20/18 10:34 Dose: 40 mg Rivaroxaban (Xarelto) 10 mg PO DAILY [facility] Rosuvastatin Calcium (Crestor) 5 mg PO HS [facility] Last Admin: 02/19/18 21:41 Dose: 5 mg - Labs Labs: 02/20/18 07:15 02/20/18 07:15 PT 15.5 SECONDS (9.7-12.2) H 02/18/18 06:23 INR 1.4 02/18/18 06:23 APTT 45 SECONDS (21-34) H 02/11/18 17:20 Attending/Attestation - Attestation I have personally seen and examined this patient.: Yes I have fully participated in the care of the patient.: Yes I have reviewed all pertinent clinical information, including history, physical exam and plan: Yes Notes (Text): Patient seen, examined, case discussed with medical records field technician. Patient seen this morning. Patient is in good spirits. Patient is eager to shaved was advised by cardiology not shaving given the history of blood thinner and has ecchymoses. Patient noted to have a hive-like appearance over his neck. We'll give a dose of Benadryl and Solu-Medrol and additional 3 doses every 8 hours apart in a polymicrobial ointment. I've advised patient to not shave. I spoke with cardiology of confirmed that to restart Xarelto today. Given today is a holiday social social welfare clerk available and patient is pending authorization for subacute rehabilitation eval. Assessment/Plan 1) Dyspnea Assessment/Plan * Cardiology (Dr. Vu) on case help appreciated * Monitor on telemetry * Pertinent positive: s/p TAVR (2014), Atrial fibrillation (on AC), Pacemaker , Smoking history * Pacemaker placed in 03/2015 - last interrogated was last week, reports his lobbyist Dr Byrd told him at that time there was an issue with his pacemaker and that it needs to be rechecked. Patient completed Holter with Dr. Byrd; No V-tachy noted per discussion. * AICD placed on 02/15/18 * Restart Xarelto 02/20/18 * Duonebs PRN shortness of breathe * D-dimer: negative * Elevated probnp * Troponin X3 2) Atrial Fibrillation Assessment/Plan * CHADS: 3 * Patient is on Xarelto 10mg PO daily-->to be resumed 02/20/18 * Metoprolol Tartrate 75mg PO daily * Echo 02/13 - technically difficult and limited study, LV severely dialted, mild asymmetric left ventricular hypertrophy, left ventricle systolic function mildly impaired, EF 40%, global hypokinesis of left ventricle, left ventricle diastolic function is normal (see full report) 3) History of Aortic Stenosis s/p TAVR 2014 with low Ejection Fraction Coronary Artery Disease + Stent History of Pacemaker Cardiomyopathy Assessment/Plan * monitor on telemetry * Patient's outpatient lobbyist, Dr. Hawk Byrd * Echo 02/13 - technically difficult and limited study, LV severely dialted, mild asymmetric left ventricular hypertrophy, left ventricle systolic function mildly impaired, EF 40%, global hypokinesis of left ventricle, left ventricle diastolic function is normal (see full report) * MUGA 02/14 - EF 29% * Patient will need AICD given low Ejection Fraction noted by echo and MUGA * Patient had placement of AICD at [place] over the weekend * Patient had noted ecchymoses over the site with tenderness to palpation * held Xarelto secondary to extensive ecchymoses by cardio-->recommend to restart 02/20/18 * BNP 1939 * Measure daily weights, Is/Os * Continue home medications * Lopressor 75mg daily * Crestor 5mg POqHS * Plavix 75mg daily * Lasix 40mg daily * Crestor 5mg POqHS 4) Hypertension Assessment/Plan * Monitor vital signs * Cozaar 25mg daily * Lopressor 75mg daily 5) Left heel ulcer Assessment/Plan * Patient's private digital communications manager, Dr Kenney who he sees routinely for Darkin solution * Patient has pending appointment on SundayFebruary 19 * Daily dressing changes 6) Peripheral Vascular Disease Assessment/Plan * 2 veins removed in his left lower extremity (10/2017 and 2014) 7) History of Gastritis Assessment/Plan * Pantoprazole 40mg dialy 8) History of Depression Assessment/Plan * Fluoxetine 20mg PO daily 8) Rash Assessment/Plan * Benadryl 25mg IV Q8 X3 doses * Solumderol 40mg IV Q8H X3 doses * Mupricin ointment 10) Prophylaxis * Protonix 40mg PO daily * Xarelto 10mg PO daily * SCDs * PT eval and treat * Changed mind to subacute rehab eval for discharge planning Disposition: Patient is amenable to subacute rehab eval. Patient to have xarelto restarted on 02/20/18. <Nitesh Brothers - Last Filed: 02/20/18 18:36> Subjective - Date & Time of Evaluation Date of Evaluation: 02/20/18 Time of Evaluation: 09:00 - Subjective Subjective: PGY [address] Lai Pt seen and examined at bedside. Pt sitting in bed with no acute distress. Pt denies having any complaints. Pt denies chest pain, palpations, nausea, vomitting, diarrhea. Pt states he can breath much better post AICD placement. Objective - Vital Signs/Intake and Output Vital Signs (last 24 hours): Temp Pulse Resp BP Pulse Ox 97.8 F 77 20 129/74 97 02/19/18 23:45 02/20/18 04:11 02/19/18 23:45 02/19/18 23:45 02/19/18 23:45 Intake and Output: 02/20/18 02/20/18 06:59 18:59 Intake Total 400 Output Total 325 Balance 75 - Medications Medications: Current Medications Acetaminophen (Tylenol 325mg Tab) 650 mg PO [facility] Last Admin: 02/19/18 21:41 Dose: 650 mg Albuterol/Ipratropium (Duoneb 3 Mg/0.5 Mg (3 Ml) Ud) 3 ml INH RQ4 PRN PRN Reason: Shortness of Breath Alprazolam (Xanax) 0.25 mg PO DAILY PRN PRN Reason: Anxiety Stop: 02/21/18 23:59 Last Admin: 02/14/18 07:24 Dose: 0.25 mg Clopidogrel Bisulfate (Plavix) 75 mg PO DAILY [facility] Last Admin: 02/19/18 10:53 Dose: 75 mg Fluoxetine HCl (Prozac) 20 mg PO DAILY [facility] Last Admin: 02/19/18 10:52 Dose: 20 mg Furosemide (Lasix) 40 mg PO DAILY [facility] Last Admin: 02/19/18 10:54 Dose: 40 mg Losartan Potassium (Cozaar) 25 mg PO DAILY [facility] Last Admin: 02/19/18 10:54 Dose: 25 mg Metoprolol Tartrate (Lopressor) 75 mg PO DAILY [facility] Last Admin: 02/19/18 10:54 Dose: 75 mg Pantoprazole Sodium (Protonix Ec Tab) 40 mg PO DAILY [facility] Last Admin: 02/19/18 10:53 Dose: 40 mg Rivaroxaban (Xarelto) 10 mg PO DAILY [facility] Last Admin: 02/17/18 10:33 Dose: 10 mg Rosuvastatin Calcium (Crestor) 5 mg PO [facility] Last Admin: 02/19/18 21:41 Dose: 5 mg - Labs Labs: 02/19/18 06:57 02/19/18 06:57 PT 15.5 SECONDS (9.7-12.2) H 02/18/18 06:23 INR 1.4 02/18/18 06:23 APTT 45 SECONDS (21-34) H 02/11/18 17:20 - Constitutional Appears: Well, No Acute Distress - Head Exam Head Exam: NORMAL INSPECTION Additional comments: Face and neck region has erythemic raised rash. - Eye Exam Eye Exam: EOMI, Normal appearance - ENT Exam ENT Exam: Mucous Membranes Moist - Respiratory Exam Respiratory Exam: Clear to Ausculation Bilateral, NORMAL BREATHING PATTERN. absent: Rales, Rhonchi, Wheezes - Cardiovascular Exam Cardiovascular Exam: Irregular Rhythm, +S1, +S2 Additional comments: Chest wall at has diffuse ecchymosis closer to L arm. Incision sight for AICD placement is clean, dry, healing. - GI/Abdominal Exam GI & Abdominal Exam: Soft, Normal Bowel Sounds. absent: Firm, Guarding, Rigid - Extremities Exam Additional comments: Chest wall at has diffuse ecchymosis closer to L arm. Incision sight for AICD placement is clean, dry, healing. LLE has a chronic foot ulcer, (6+months) that is currently in dressing that is clean, dry, intact. - Neurological Exam Neurological Exam: Alert, Awake, Oriented x3 - Psychiatric Exam Psychiatric exam: Normal Affect, Normal Mood - Skin Skin Exam: Dry, Normal Color Assessment and Plan - Assessment and Plan (Free Text) Plan: 1) Dyspnea Assessment/Plan 02/20: - Xarelto 10mg resumed per cardio recs - Plavix 75 mg resumed per cardio recs 02/19: * Cardiology (Dr. Vu) on case help appreciated * Dr. Vu agreed to start Xarelto 02/20/18 * Monitor on telemetry * Pertinent positive: s/p TAVR (2014), Atrial fibrillation (on AC), Pacemaker , Smoking history * Pacemaker placed in 03/2015 - last interrogated was last week, reports his lobbyist Dr Byrd told him at that time there was an issue with his pacemaker and that it needs to be rechecked. Patient completed Holter with Dr. Byrd; No V-tachy noted per discussion. * Duonebs PRN shortness of breath * D-dimer: negative * Elevated probnp * Troponin X3 2) Atrial Fibrillation Assessment/Plan 02/20: - Xarelto 10mg resumed per cardio recs - Plavix 75 mg resumed per cardio recs 02/19: * CHADS: 3 * Patient is on Xarelto 10mg PO daily--> HELD DUE TO ECCHYMOSIS, can be restarted on 02/20/18 * Metoprolol Tartrate 75mg PO daily * Echo 02/13 - technically difficult and limited study, LV severely dialted, mild asymmetric left ventricular hypertrophy, left ventricle systolic function mildly impaired, EF 40%, global hypokinesis of left ventricle, left ventricle diastolic function is normal (see full report) * Repeat EKG 02/19/18: A fib with RVR 106, LBBB. LBBB unchanged from prior EKG on 02/12 * Lopressor 75mg PO given 3) History of Aortic Stenosis s/p TAVR 2014 with low Ejection Fraction Coronary Artery Disease + Stent History of Pacemaker Cardiomyopathy Assessment/Plan * monitor on telemetry * Patient's outpatient lobbyist, Dr. Hawk Byrd * Echo 02/13 - technically difficult and limited study, LV severely dialted, mild asymmetric left ventricular hypertrophy, left ventricle systolic function mildly impaired, EF 40%, global hypokinesis of left ventricle, left ventricle diastolic function is normal (see full report) * MUGA 02/14 - EF 29% * Patient will need AICD given low Ejection Fraction noted by echo and MUGA * Patient had placement of AICD at [place] over the weekend * Patient had noted ecchymoses over the site with tenderness to palpation * Xarelto held secondary to extensive ecchymoses, can be started 02/20/[address] Vu. * BNP 1937 * Measure daily weights, Is/Os * Continue home medications * Lopressor 75mg daily * Crestor 5mg POqHS * Plavix 75mg daily * Lasix 40mg daily * Crestor 5mg POqHS 4) Hypertension Assessment/Plan * Monitor vital signs * Cozaar 25mg daily * Lopressor 75mg daily 5) Left heel ulcer Assessment/Plan * Patient's private digital communications manager, Dr Kenney who he sees routinely for Darkin solution * Patient has pending appointment on SundayFebruary 19 * Daily dressing changes 6) Peripheral Vascular Disease Assessment/Plan * 2 veins removed in his left lower extremity (10/2017 and 2014) 7) History of Gastritis * Pantoprazole 40mg daily 8) History of Depression * Fluoxetine 20mg PO daily 9) Rash 02/20: - Benadryl 25 mg IV stat dose, w/ additional 25 IV Q8 for 3 additional dose - Solumedrol 40 mg IV stat dose w/ additional 40 IV Q8 for 3 additional dose 10) Prophylaxis * Protonix 40mg PO daily * held Xarelto 10mg daily secondary to extensive ecchymoses * SCDs * PT eval and treat * Case management consulted for subacute rehab evaluation, awaiting authorization.
[2018-02-20 07:28] LABS: BASO # 0.1 K/uL (0.0-0.2); BASO % 0.9 % (0.0-2.0); EOS # 0.3 K/uL (0.0-0.7); EOS % 5.2 % (0.0-4.0); LYMPH # 0.5 K/uL (1.0-4.3); LYMPH % 8.4 % (20.0-40.0); MEAN CELL VOLUME 95.4 fL (80.0-94.0); MEAN CORPUSCULAR HGB CONC 34.6 g/dL (33.0-37.0); MEAN PLATELET VOLUME 8.8 fL (7.2-11.7); MONO % 15.6 % (0.0-10.0); NEUT # 4.5 K/uL (1.8-7.0); NEUT % 69.9 % (50.0-75.0); PLATELET COUNT 190 K/uL (130-400); RBC 4.23 Mil/uL (4.40-5.90); RED CELL DISTRIBUTION WIDTH 14.5 % (11.5-14.5); WHITE BLOOD COUNT 6.4 K/uL (4.8-10.8)
[2018-02-20 07:50] LABS: ALB/GLOB RATIO 1.2 (1.0-2.1); ALBUMIN 3.7 g/dL (3.5-5.0); ALT/SGPT 42 U/L (21-72); AST/SGOT 54 U/L (17-59); BLOOD UREA NITROGEN 17 mg/dL (9-20); CALCIUM 8.7 mg/dl (8.6-10.4); GFR AFRICAN-AMERICAN > 60; GFR NON-AFRICAN AMERICAN > 60
[2018-02-20] MEDS ORDERED: Potassium Chloride 20 mEq ER Tab PO SCH (10:00)
[2018-02-20] MEDS: Pantoprazole 40 mg EC Tab PO SCH (10:34)
[2018-02-20 10:39] LABS: BANDS 1 % (0-2); BASOPHIL 2 % (0-2); EOSINOPHIL 3 % (0-4); LYMPHOCYTE 9 % (20-40); MONOCYTE 14 % (0-10); NEUTROPHIL 70 % (50-75); PLATELET ESTIMATE NORMAL (NORMAL); REACTIVE LYMPHOCYTES 1 % (0-0); TOTAL CELLS COUNTED 100
[2018-02-20] MEDS ORDERED: DiphenhydrAMINE 50 mg/ml Inj IVP STA (11:46)
[2018-02-20] MEDS ORDERED: MethylPREDNISolone 40 mg Vial IVP STA (11:46)
[2018-02-20] MEDS: DiphenhydrAMINE 50 mg/ml Inj IVP SCH ×2 (19:05→22:19)
[2018-02-20] MEDS: MethylPREDNISolone 40 mg Vial IVP SCH ×2 (19:06→22:20)
[2018-02-21 03:41] VITALS: RESP 20
[2018-02-21] MEDS: DiphenhydrAMINE 50 mg/ml Inj IVP SCH (06:02)
[2018-02-21] MEDS: MethylPREDNISolone 40 mg Vial IVP SCH (06:03)
[2018-02-21 08:12] LABS: ALB/GLOB RATIO 1.3 (1.0-2.1); ALBUMIN 4.5 g/dL (3.5-5.0); ALT/SGPT 41 U/L (21-72); AST/SGOT 61 U/L (17-59); BLOOD UREA NITROGEN 23 mg/dL (9-20); CALCIUM 9.3 mg/dl (8.6-10.4); GFR AFRICAN-AMERICAN > 60; GFR NON-AFRICAN AMERICAN > 60
[2018-02-21 08:25] LABS: BASO % 0.1 % (0.0-2.0); HEMOGLOBIN 14.5 g/dL (12.0-18.0); LYMPH # 0.5 K/uL (1.0-4.3); LYMPH % 7.5 % (20.0-40.0); MEAN CELL VOLUME 96.6 fL (80.0-94.0); MEAN CORPUSCULAR HEMOGLOBIN 33.1 pg (27.0-31.0); MEAN CORPUSCULAR HGB CONC 34.3 g/dL (33.0-37.0); MEAN PLATELET VOLUME 8.8 fL (7.2-11.7); MONO # 0.2 K/uL (0.0-0.8); NEUT # 5.5 K/uL (1.8-7.0); NEUT % 89.4 % (50.0-75.0); NRBC % 0.1 % (0.0-2.0); PLATELET COUNT 232 K/uL (130-400); RBC 4.38 Mil/uL (4.40-5.90); RED CELL DISTRIBUTION WIDTH 14.6 % (11.5-14.5); WHITE BLOOD COUNT 6.1 K/uL (4.8-10.8)
--- NOTE | 2018-02-21 09:12 | CP.PCM.PN ---
Subjective - Date & Time of Evaluation Date of Evaluation: 02/21/18 Time of Evaluation: 09:12 - Subjective Subjective: Patient seen and examined at bedside. Patient states that he is feeling well. He states that his rash is no longer itchy, and states the Benadryl and Solumedrol have helped. He states he has to set up an appointment with Dr. Cortez. Objective - Vital Signs/Intake and Output Vital Signs (last 24 hours): Temp Pulse Resp BP Pulse Ox 97.8 F 64 20 132/85 96 02/21/18 07:20 02/21/18 07:20 02/21/18 07:20 02/21/18 07:20 02/21/18 07:20 Intake and Output: 02/21/18 02/21/18 06:59 18:59 Intake Total 400 Balance 400 - Medications Medications: Current Medications Acetaminophen (Tylenol 325mg Tab) 650 mg PO HS [facility] Last Admin: 02/20/18 22:18 Dose: 650 mg Clopidogrel Bisulfate (Plavix) 75 mg PO DAILY [facility] Last Admin: 02/20/18 10:34 Dose: 75 mg Fluoxetine HCl (Prozac) 20 mg PO DAILY [facility] Last Admin: 02/20/18 10:34 Dose: 20 mg Furosemide (Lasix) 40 mg PO DAILY [facility] Last Admin: 02/20/18 10:34 Dose: 40 mg Losartan Potassium (Cozaar) 25 mg PO DAILY [facility] Last Admin: 02/20/18 10:34 Dose: 25 mg Metoprolol Tartrate (Lopressor) 75 mg PO DAILY [facility] Last Admin: 02/20/18 10:34 Dose: 75 mg Mupirocin (Bactroban Ointment) 1 gm EXT DAILY [facility] Pantoprazole Sodium (Protonix Ec Tab) 40 mg PO DAILY [facility] Last Admin: 02/20/18 10:34 Dose: 40 mg Rivaroxaban (Xarelto) 10 mg PO DAILY [facility] Rosuvastatin Calcium (Crestor) 5 mg PO HS [facility] Last Admin: 02/20/18 22:19 Dose: 5 mg - Labs Labs: 02/21/18 07:15 02/21/18 07:15 PT 15.5 SECONDS (9.7-12.2) H 02/18/18 06:23 INR 1.4 02/18/18 06:23 APTT 45 SECONDS (21-34) H 02/11/18 17:20 - Constitutional Appears: No Acute Distress - Head Exam Head Exam: ATRAUMATIC, NORMOCEPHALIC Additional comments: diffuse erythema on face, nonpruritic. - Eye Exam Eye Exam: EOMI - ENT Exam ENT Exam: Mucous Membranes Moist - Neck Exam Neck Exam: Full ROM Additional comments: erythema around anterior neck, nonpruritic, no discharge - Respiratory Exam Respiratory Exam: Clear to Ausculation Bilateral, NORMAL BREATHING PATTERN - Cardiovascular Exam Cardiovascular Exam: REGULAR RHYTHM, +S1, +S2 - GI/Abdominal Exam GI & Abdominal Exam: Soft, Normal Bowel Sounds. absent: Firm, Guarding, Rigid, Tenderness - Extremities Exam Extremities Exam: Pedal Edema (left pedal edema, (+) left heel ulcer). absent: Calf Tenderness Additional comments: Resolving ecchymosis of left arm, chest Left heel ulcer, left pedal edema. - Neurological Exam Neurological Exam: Alert, Awake, Oriented x3
--- NOTE | 2018-02-21 10:24 | CP.PCM.DIS ---
Addendum entered and electronically signed by Xena Greene 02/21/18 17:27: Patient can resume Xarelto, and can shave. Original Note: <Xena Greene - Last Filed: 02/21/18 14:37> Provider - Provider Date of Admission: 02/11/18 18:10 Attending physician: Keke Lai DO Primary care physician: Dr. Zuniga Consults: Cardiology: Dr. Vu Time Spent in preparation of Discharge (in minutes): 36 Hospital Course - Lab Results Lab Results: Most Recent Lab Values WBC 6.1 K/uL (4.8-10.8) 02/21/18 07:15 RBC 4.38 Mil/uL (4.40-5.90) L 02/21/18 07:15 Hgb 14.5 g/dL (12.0-18.0) 02/21/18 07:15 Hct 42.3 % (35.0-51.0) 02/21/18 07:15 MCV 96.6 fL (80.0-94.0) H 02/21/18 07:15 MCH 33.1 pg (27.0-31.0) H 02/21/18 07:15 MCHC 34.3 g/dL (33.0-37.0) 02/21/18 07:15 RDW 14.6 % (11.5-14.5) H 02/21/18 07:15 Plt Count 232 K/uL (130-400) 02/21/18 07:15 MPV 8.8 fL (7.2-11.7) 02/21/18 07:15 Neut % (Auto) 89.4 % (50.0-75.0) H 02/21/18 07:15 Lymph % (Auto) 7.5 % (20.0-40.0) L 02/21/18 07:15 Metcalfe % (Auto) 3.0 % (0.0-10.0) 02/21/18 07:15 Eos % (Auto) 0.0 % (0.0-4.0) 02/21/18 07:15 Baso % (Auto) 0.1 % (0.0-2.0) 02/21/18 07:15 Neut # (Auto) 5.5 K/uL (1.8-7.0) 02/21/18 07:15 Lymph # (Auto) 0.5 K/uL (1.0-4.3) L 02/21/18 07:15 Metcalfe # (Auto) 0.2 K/uL (0.0-0.8) 02/21/18 07:15 Eos # (Auto) 0.0 K/uL (0.0-0.7) 02/21/18 07:15 Baso # (Auto) 0.0 K/uL (0.0-0.2) 02/21/18 07:15 Neutrophils % (Manual) 70 % (50-75) 02/20/18 07:15 Band Neutrophils % 1 % (0-2) 02/20/18 07:15 Lymphocytes % (Manual) 9 % (20-40) L 02/20/18 07:15 Reactive Lymphs % 1 % (0-0) H 02/20/18 07:15 Monocytes % (Manual) 14 % (0-10) H 02/20/18 07:15 Eosinophils % (Manual) 3 % (0-4) 02/20/18 07:15 Basophils % (Manual) 2 % (0-2) 02/20/18 07:15 Platelet Estimate Normal (NORMAL) 02/20/18 07:15 Large Platelets Present 02/16/18 06:36 RBC Morphology Normal 02/20/18 07:15 Anisocytosis (manual) Slight 02/16/18 06:36 PT 15.5 SECONDS (9.7-12.2) H 02/18/18 06:23 INR 1.4 02/18/18 06:23 APTT 45 SECONDS (21-34) H 02/11/18 17:20 D-Dimer, Quantitative 204 ng/mlDDU (0-243) 02/12/18 09:29 Sodium 138 mmol/L (132-148) 02/21/18 07:15 Potassium 4.1 mmol/L (3.6-5.2) 02/21/18 07:15 Chloride 100 mmol/L (98-107) 02/21/18 07:15 Carbon Dioxide 24 mmol/L (22-30) 02/21/18 07:15 Anion Gap 18 (10-20) 02/21/18 07:15 BUN 23 mg/dL (9-20) H 02/21/18 07:15 Creatinine 0.7 mg/dL (0.8-1.5) L 02/21/18 07:15 Est GFR ( Amer) > 60 02/21/18 07:15 Est GFR (Non-Af Amer) > 60 02/21/18 07:15 Random Glucose 140 mg/dL (75-110) H 02/21/18 07:15 Calcium 9.3 mg/dl (8.6-10.4) 02/21/18 07:15 Phosphorus 3.6 mg/dL (2.5-4.5) 02/21/18 07:15 Magnesium 1.8 mg/dL (1.6-2.3) 02/21/18 07:15 Total Bilirubin 2.0 mg/dL (0.2-1.3) H 02/21/18 07:15 AST 61 U/L (17-59) H 02/21/18 07:15 ALT 41 U/L (21-72) 02/21/18 07:15 Alkaline Phosphatase 128 U/L (38-126) H 02/21/18 07:15 Total Creatine Kinase 73 U/L (55-170) 02/12/18 04:18 CK-MB (Mass) 1.45 ng/mL (0.0-3.38) 02/12/18 04:18 Troponin I 0.0200 ng/mL (0.00-0.120) 02/12/18 04:18 NT-Pro-B Natriuret Pep 1940 pg/mL (0-900) H 02/11/18 17:20 Total Protein 7.9 g/dL (6.3-8.3) 02/21/18 07:15 Albumin 4.5 g/dL (3.5-5.0) 02/21/18 07:15 Globulin 3.4 gm/dL (2.2-3.9) 02/21/18 07:15 Albumin/Globulin Ratio 1.3 (1.0-2.1) 02/21/18 07:15 Urine Color Yellow (YELLOW) 02/11/18 18:10 Urine Clarity Clear (Clear) 02/11/18 18:10 Urine pH 5.0 (5.0-8.0) 02/11/18 18:10 Ur Specific [place] 1.011 (1.003-1.030) 02/11/18 18:10 Urine Protein Negative mg/dL (NEGATIVE) 02/11/18 18:10 Urine Glucose (UA) Normal mg/dL (Normal) 02/11/18 18:10 Urine Ketones Negative mg/dL (NEGATIVE) 02/11/18 18:10 Urine Blood 1+ (NEGATIVE) H 02/11/18 18:10 Urine Nitrate Negative (NEGATIVE) 02/11/18 18:10 Urine Bilirubin Negative (NEGATIVE) 02/11/18 18:10 Urine Urobilinogen Normal mg/dL (0.2-1.0) 02/11/18 18:10 Ur Leukocyte Esterase Trace Cara/uL (Negative) 02/11/18 18:10 Urine WBC (Auto) 2 /hpf (0-5) 02/11/18 18:10 Urine RBC (Auto) < 1 /hpf (0-3) 02/11/18 18:10 - Hospital Course Hospital Course: Admitted 02/11/18 H&P HPI: 82 year old male with past medical history of Afib, s/p TAVR, pacemaker HTN, PVD, left heel ulcer presents to the ER for shortness of breath. Patient states he started having sob at 11am today. He states he was walking in his apartment and he could not catch his breath. He had to sit himself down and it took about 25 minutes before he felt better. He states his neighbors called 911 for him. He states this is the first time this has occurred. He states he felt lightheaded when he was short of breath and weak. He states he uses only one pillow to sleep and he does not use oxygen at home. He denies chest pain, nausea, vomiting, dizziness, headache, diarrhea, constipation, palpitations, dysuria, leg edema at this time. He states he uses a rolling walker and a cane for ambulation. Hospital course: During admission, patient was monitored on telemetry to rule out acute coronary syndrome. Troponins and EKGs x3 were negative. Pro-BNP was elevated. Given history of aortic stenosis s/p TAVR, Atrial fibrillation with pacemaker in place , patient had a ECHO and MUGA scan which revealed low ejection fraction. Holter monitor was placed the week before admission which reportedly did not reveal any ventricular tacchyarrythmias. Due to low EF, patient was transferred to [facility] for AICD placement on 02/15/18. After returning from AICD placement, he was noted to have significant ecchymoses on chest and left arm. Xarelto was held at that time, and resumed after ecchymoses start to resolve. He reported that his shortness of breath improved. Dressings to left heel ulcer were changed regularly during admission. Imaging: CXR 02/11/18: no active disease ECHO 02/12/18 technically difficult and limited study. the left ventricle is severely dilated. there is mild asymmetric left ventricular hypertrophy. LV systolic function is mildly impaired. the EF is 40-45%. There is global hypokinesis of the left ventricle. The LV diastolic function is normal. The RV is normal size. The RV systolic function is normal. The LA moderately dilated. The RA is moderately dilated. Trace aortic regurgitation. Calculated aortic valve area is 1.6cm2 with maximum pressure gradient of 4mmHg. mitral regurgitation is mild to moderate. There is mild tricuspid regurgitation. MUGA scan 02/12/18: EF 29% CXR Status post of removal of single lead pacemaker, placement of multilead pacemaker/defibrillator. No evidence of pneumothorax. Discharge summary: Patient is stable for discharge to [facility] unit. Patient to follow up with his lot associate Dr. Hawk Byrd within 2 weeks. Patient to resume home medications, and start Toprol XL 50mg by mouth daily. Patient to follow up with private salesperson used cars, Dr. Kenney for left heel ulcer. Patient advised to follow up with furnace combustion analyst as needed for glasses. Patient encouraged to follow up with health inspector for rash on face and neck. Patient should return to ER if symptoms recur or worsen. This was explained to the patient who understands and agrees. This is a summary of patient's hospital course. Please refer to EMR for full medical course - Date & Time of H&P Date of H&P: 02/11/18 Discharge Exam - Head Exam Head Exam: NORMAL INSPECTION - Eye Exam Eye Exam: EOMI - ENT Exam ENT Exam: Mucous Membranes Moist - Neck Exam Additional comments: Erythema to neck, nonpruritic, improved from yesterday - Respiratory Exam Respiratory Exam: Clear to PA & Lateral, NORMAL BREATHING PATTERN. absent: Rales, Rhonchi, Wheezes - Cardiovascular Exam Cardiovascular Exam: REGULAR RHYTHM, +S1, +S2 Additional comments: AICD in place on left anterior chest Resolving ecchymosis to chest wall and left arm - GI/Abdominal Exam GI & Abdominal Exam: Normal Bowel Sounds, Soft. absent: Distended, Firm, Guarding, Tenderness - Extremities Exam Extremities exam: pedal edema (pedal edema on left. Left heel ulcer. ), pedal pulses present Additional comments: no calf tenderness - Neurological Exam Neurological exam: Alert, Oriented x3 - Psychiatric Exam Psychiatric exam: Normal Mood - Skin Additional comments: Erythema with mild scales on face and neck, nonpruritic. Discharge Plan - Discharge Medications Prescriptions: Metoprolol Succinate XL [Toprol XL] 50 mg PO DAILY #30 tab RX: Mupirocin 2% Ointment [Bactroban Ointment] 1 gm EXT DAILY #1 tube - Follow Up Plan Condition: STABLE Disposition: REHAB FACILITY/REHAB UNIT Instructions: Heart Healthy Diet, Atrial Fibrillation (DC), Heart Failure, Adult (DC), Shortness of Breath (Dyspnea) (DC), Heart Failure and Atrial Fibrillation Additional Instructions: Patient is stable for discharge to [facility]. Patient to follow up with his lot associate Dr. Hawk Byrd within 2 weeks. Patient to resume home medications, and start Toprol XL 50mg by mouth daily. Patient to follow up with private salesperson used cars, Dr. Kenney for left heel ulcer. Patient advised to follow up with furnace combustion analyst as needed for glasses. Patient encouraged to follow up with health inspector for rash on face and neck. Patient should return to ER if symptoms recur or worsen. This was explained to the patient who understands and agrees. Referrals: Hawk Byrd MD [Medical Doctor] - Tammie Kenney DPM [Medical Doctor] - Ravindra Zuniga DO [Doctor Osteopathy] - <Keke Lai V - Last Filed: 02/23/18 16:43> Provider - Provider Date of Admission: 02/11/18 18:10 Attending physician: Keke Lai DO Hospital Course - Lab Results Lab Results: Most Recent Lab Values WBC 8.3 K/uL (4.8-10.8) 02/23/18 08:06 RBC 4.70 Mil/uL (4.40-5.90) 02/23/18 08:06 Hgb 15.7 g/dL (12.0-18.0) 02/23/18 08:06 Hct 45.3 % (35.0-51.0) 02/23/18 08:06 MCV 96.4 fL (80.0-94.0) H 02/23/18 08:06 MCH 33.4 pg (27.0-31.0) H 02/23/18 08:06 MCHC 34.7 g/dL (33.0-37.0) 02/23/18 08:06 RDW 14.7 % (11.5-14.5) H 02/23/18 08:06 Plt Count 241 K/uL (130-400) 02/23/18 08:06 MPV 8.4 fL (7.2-11.7) 02/23/18 08:06 Neut % (Auto) 74.2 % (50.0-75.0) 02/23/18 08:06 Lymph % (Auto) 8.2 % (20.0-40.0) L 02/23/18 08:06 Metcalfe % (Auto) 12.6 % (0.0-10.0) H 02/23/18 08:06 Eos % (Auto) 4.1 % (0.0-4.0) H 02/23/18 08:06 Baso % (Auto) 0.9 % (0.0-2.0) 02/23/18 08:06 Neut # (Auto) 6.2 K/uL (1.8-7.0) 02/23/18 08:06 Lymph # (Auto) 0.7 K/uL (1.0-4.3) L 02/23/18 08:06 Metcalfe # (Auto) 1.0 K/uL (0.0-0.8) H 02/23/18 08:06 Eos # (Auto) 0.3 K/uL (0.0-0.7) 02/23/18 08:06 Baso # (Auto) 0.1 K/uL (0.0-0.2) 02/23/18 08:06 Neutrophils % (Manual) 79 % (50-75) H 02/23/18 08:06 Band Neutrophils % 1 % (0-2) 02/20/18 07:15 Lymphocytes % (Manual) 9 % (20-40) L 02/23/18 08:06 Reactive Lymphs % 1 % (0-0) H 02/20/18 07:15 Monocytes % (Manual) 12 % (0-10) H 02/23/18 08:06 Eosinophils % (Manual) 3 % (0-4) 02/20/18 07:15 Basophils % (Manual) 2 % (0-2) 02/20/18 07:15 Platelet Estimate Normal (NORMAL) 02/23/18 08:06 Large Platelets Present 02/23/18 08:06 RBC Morphology Normal 02/21/18 07:15 Anisocytosis (manual) Slight 02/23/18 08:06 PT 15.5 SECONDS (9.7-12.2) H 02/18/18 06:23 INR 1.4 02/18/18 06:23 APTT 45 SECONDS (21-34) H 02/11/18 17:20 D-Dimer, Quantitative 204 ng/mlDDU (0-243) 02/12/18 09:29 Sodium 142 mmol/L (132-148) 02/23/18 08:06 Potassium 3.4 mmol/L (3.6-5.2) L 02/23/18 08:06 Chloride 101 mmol/L (98-107) 02/23/18 08:06 Carbon Dioxide 31 mmol/L (22-30) H 02/23/18 08:06 Anion Gap 14 (10-20) 02/23/18 08:06 BUN 20 mg/dL (9-20) 02/23/18 08:06 Creatinine 0.8 mg/dL (0.8-1.5) 02/23/18 08:06 Est GFR ( Amer) > 60 02/23/18 08:06 Est GFR (Non-Af Amer) > 60 02/23/18 08:06 Random Glucose 96 mg/dL (75-110) 02/23/18 08:06 Calcium 9.2 mg/dl (8.6-10.4) 02/23/18 08:06 Phosphorus 4.0 mg/dL (2.5-4.5) 02/23/18 08:06 Magnesium 1.8 mg/dL (1.6-2.3) 02/23/18 08:06 Total Bilirubin 1.9 mg/dL (0.2-1.3) H 02/23/18 08:06 AST 61 U/L (17-59) H 02/23/18 08:06 ALT 44 U/L (21-72) 02/23/18 08:06 Alkaline Phosphatase 123 U/L (38-126) 02/23/18 08:06 Total Creatine Kinase 73 U/L (55-170) 02/12/18 04:18 CK-MB (Mass) 1.45 ng/mL (0.0-3.38) 02/12/18 04:18 Troponin I 0.0200 ng/mL (0.00-0.120) 02/12/18 04:18 NT-Pro-B Natriuret Pep 1940 pg/mL (0-900) H 02/11/18 17:20 Total Protein 7.3 g/dL (6.3-8.3) 02/23/18 08:06 Albumin 4.3 g/dL (3.5-5.0) 02/23/18 08:06 Globulin 3.0 gm/dL (2.2-3.9) 02/23/18 08:06 Albumin/Globulin Ratio 1.4 (1.0-2.1) 02/23/18 08:06 Urine Color Yellow (YELLOW) 02/11/18 18:10 Urine Clarity Clear (Clear) 02/11/18 18:10 Urine pH 5.0 (5.0-8.0) 02/11/18 18:10 Ur Specific [place] 1.011 (1.003-1.030) 02/11/18 18:10 Urine Protein Negative mg/dL (NEGATIVE) 02/11/18 18:10 Urine Glucose (UA) Normal mg/dL (Normal) 02/11/18 18:10 Urine Ketones Negative mg/dL (NEGATIVE) 02/11/18 18:10 Urine Blood 1+ (NEGATIVE) H 02/11/18 18:10 Urine Nitrate Negative (NEGATIVE) 02/11/18 18:10 Urine Bilirubin Negative (NEGATIVE) 02/11/18 18:10 Urine Urobilinogen Normal mg/dL (0.2-1.0) 02/11/18 18:10 Ur Leukocyte Esterase Trace Cara/uL (Negative) 02/11/18 18:10 Urine WBC (Auto) 2 /hpf (0-5) 02/11/18 18:10 Urine RBC (Auto) < 1 /hpf (0-3) 02/11/18 18:10 Attending/Attestation - Attestation I have personally seen and examined this patient.: Yes I have fully participated in the care of the patient.: Yes I have reviewed all pertinent clinical information, including history, physical exam and plan: Yes Notes (Text): This is a late computer entry for 02/21/2018. Patient seen, examined, case discussed with special forces medical sergeant. Patient is doing well and is awaiting a bed to subacute rehabilitation. I placed discharge order this morning discussed case management who are in awaiting authorization. Discussed with cardiology, patient may come off telemetry, make patient may shave since starting Xarelto and recommends patient to follow-up with Dr. Byrd in 2 weeks. Patient's hives over neck are mildly improving time doses of both Solumedrol and Benadryl to end today. Assessment/Plan 1) Dyspnea resolved Assessment/Plan * Cardiology (Dr. Vu) on case help appreciated * Monitor on telemetry * Pertinent positive: s/p TAVR (2014), Atrial fibrillation (on AC), Pacemaker , Smoking history * Pacemaker placed in 03/2015 - last interrogated was last week, reports his lot associate Dr Byrd told him at that time there was an issue with his pacemaker and that it needs to be rechecked. Patient completed Holter with Dr. Byrd; No V-tachy noted per discussion. * AICD placed on 02/15/18 * Restart Xarelto * Duonebs PRN shortness of breathe * D-dimer: negative * Elevated probnp * Troponin X3 2) Atrial Fibrillation controlled Assessment/Plan * CHADS: 3 * Patient is on Xarelto 10mg PO daily * Metoprolol Tartrate 75mg PO daily * Echo 02/13 - technically difficult and limited study, LV severely dialted, mild asymmetric left ventricular hypertrophy, left ventricle systolic function mildly impaired, EF 40%, global hypokinesis of left ventricle, left ventricle diastolic function is normal (see full report) 3) History of Aortic Stenosis s/p TAVR 2014 with low Ejection Fraction chronic Coronary Artery Disease + Stent chronic History of Pacemaker Cardiomyopathy chronic Assessment/Plan * monitor on telemetry * Patient's outpatient lot associate, Dr. Hawk Byrd * Echo 02/13 - technically difficult and limited study, LV severely dialted, mild asymmetric left ventricular hypertrophy, left ventricle systolic function mildly impaired, EF 40%, global hypokinesis of left ventricle, left ventricle diastolic function is normal (see full report) * MUGA 02/14 - EF 29% * Patient will need AICD given low Ejection Fraction noted by echo and MUGA * Patient had placement of AICD at [facility] over the weekend * Patient had noted ecchymoses over the site with tenderness to palpation which has improved and is pain-free * Continue Xarelto 10 mg 1 tab per day restarted on February 20, discussed the cardio * BNP 1939 * Measure daily weights, Is/Os * Continue home medications * Lopressor 75mg daily * Crestor 5mg POqHS * Plavix 75mg daily * Lasix 40mg daily * Crestor 5mg POqHS 4) Hypertension chronic Assessment/Plan * Monitor vital signs * Cozaar 25mg daily * Lopressor 75mg daily 5) Right (not left) heel ulcer chronic Assessment/Plan * Patient's private salesperson used cars, Dr Kenney who he sees routinely for Darkin solution * Patient has called his salesperson used cars to reschedule appointment * Daily dressing changes 6) Peripheral Vascular Disease chronic Assessment/Plan * 2 veins removed in his left lower extremity (10/2017 and 2014) 7) History of Gastritis chronic Assessment/Plan * Pantoprazole 40mg dialy 8) History of Depression chronic Assessment/Plan * Fluoxetine 20mg PO daily 9) Rash-->resolved Assessment/Plan * To complete Benadryl 25mg IV Q8 X3 doses on 02/21/18 * To complete Solumederol 40mg IV Q8H X3 doses on 02/21/18 * Muproicin ointment applied over the neck area 10) Prophylaxis * Protonix 40mg PO daily * Xarelto 10mg PO daily * SCDs * PT eval and treat * Pending authorization for subacute rehabilitation preferably to [facility]. Disposition: We are awaiting authorization for subacute rehabilitation for discharge planning.
[2018-02-21 10:39] LABS: LYMPHOCYTE 7 % (20-40); MONOCYTE 2 % (0-10); NEUTROPHIL 91 % (50-75); PLATELET ESTIMATE NORMAL (NORMAL); TOTAL CELLS COUNTED 100
[2018-02-21] MEDS: Pantoprazole 40 mg EC Tab PO SCH (10:48)
--- NOTE | 2018-02-21 11:49 | CP.PCM.PN ---
<Courtney Guerrero - Last Filed: 02/21/18 13:17> Subjective - Date & Time of Evaluation Date of Evaluation: 02/21/18 Time of Evaluation: 07:00 - Subjective Subjective: PGY2- Progress Note for Dr. Vu Patient seen and examined at bedside and in no acute distress. Patient feels okay and has no complaints. Patient denies chest pain, shortness of breath or palpitations. Objective - Vital Signs/Intake and Output Vital Signs (last 24 hours): Temp Pulse Resp BP Pulse Ox 97.8 F 64 20 134/74 96 02/21/18 07:20 02/21/18 07:20 02/21/18 07:20 02/21/18 11:40 02/21/18 07:20 Intake and Output: 02/21/18 02/21/18 06:59 18:59 Intake Total 400 Balance 400 - Medications Medications: Current Medications Acetaminophen (Tylenol 325mg Tab) [address] [facility] Last Admin: 02/20/18 22:18 Dose: 650 mg Clopidogrel Bisulfate (Plavix) 75 mg PO DAILY [facility] Last Admin: 02/21/18 10:47 Dose: 75 mg Fluoxetine HCl (Prozac) 20 mg PO DAILY [facility] Last Admin: 02/21/18 10:47 Dose: 20 mg Furosemide (Lasix) 40 mg PO DAILY [facility] Last Admin: 02/21/18 10:48 Dose: 40 mg Losartan Potassium (Cozaar) 25 mg PO DAILY [facility] Last Admin: 02/21/18 10:46 Dose: 25 mg Metoprolol Tartrate (Lopressor) 75 mg PO DAILY [facility] Last Admin: 02/21/18 10:46 Dose: 75 mg Mupirocin (Bactroban Ointment) 1 gm EXT DAILY [facility] Pantoprazole Sodium (Protonix Ec Tab) 40 mg PO DAILY [facility] Last Admin: 02/21/18 10:48 Dose: 40 mg Rivaroxaban (Xarelto) 10 mg PO DAILY [facility] Last Admin: 02/21/18 10:47 Dose: 10 mg Rosuvastatin Calcium (Crestor) [address] [facility] Last Admin: 02/20/18 22:19 Dose: 5 mg - Labs Labs: 02/21/18 07:15 02/21/18 07:15 PT 15.5 SECONDS (9.7-12.2) H 02/18/18 06:23 INR 1.4 02/18/18 06:23 APTT 45 SECONDS (21-34) H 02/11/18 17:20 - Additional Findings Additional findings: - Constitutional Appears: Non-toxic, No Acute Distress - Head Exam Head Exam: ATRAUMATIC, NORMAL INSPECTION, NORMOCEPHALIC - Eye Exam Eye Exam: EOMI, Normal appearance - ENT Exam ENT Exam: Mucous Membranes Moist - Neck Exam Neck Exam: Full ROM - Respiratory Exam Respiratory Exam: Clear to Ausculation Bilateral, NORMAL BREATHING PATTERN - Cardiovascular Exam Cardiovascular Exam: Irregular Rhythm, RRR, +S1, +S2 - GI/Abdominal Exam GI & Abdominal Exam: Soft, Normal Bowel Sounds. absent: Tenderness - Extremities Exam Extremities Exam: Normal Inspection Additional comments: venous ulcer measurements are 5 x 2.3 x 0.5 cm. on left left ankle edema C/D/I dressing - Neurological Exam Neurological Exam: Alert, Awake, Oriented x3 - Psychiatric Exam Psychiatric exam: Normal Affect, Normal Mood - Skin Skin Exam: Intact, Warm. absent: Normal Color Additional comments: ecchymosis resolving over left side of chest wall down into left arm to elbow Assessment and Plan - Assessment and Plan (Free Text) Assessment: History of Aortic Stenosis s/p TAVR 2015 Coronary Artery Disease + Stent History of Pacemaker Cardiomyopathy Assessment/Plan * AICD placed at [facility] on 02/15/18 * monitor on telemetry * Patient's outpatient electric container tester, Dr. Hawk Byrd, does not come here---> will f/u holter (see notes above) * BNP 1939 * Measure daily weights, Is/Os Imaging: * Echo 02/13 - technically difficult and limited study, LV severely dialted, mild asymmetric left ventricular hypertrophy, left ventricle systolic function mildly impaired, EF 40%, global hypokinesis of left ventricle, left ventricle diastolic function is normal (see full report) * MUGA 02/14 - EF 29% * Continue home medications * Lopressor 75mg daily * Crestor 5mg POqHS * Lasix 40mg po daily * Plavix 75mg po daily * Xarelto restarted, ecchymosis resolving * Patient needs to work with PT Atrial Fibrillation Assessment/Plan * CHADS: 3 * Xarelto 10mg PO daily restarted due to ecchymosis * Metoprolol Tartrate 75mg PO daily Dispo: Patient stable for [facility] as per Dr. Vu, patient will need to follow up with Dr. Byrd as an outpatient <Jose L Vu - Last Filed: 02/22/18 00:35> Objective - Vital Signs/Intake and Output Vital Signs (last 24 hours): Temp Pulse Resp BP Pulse Ox 98.0 F 87 20 120/77 98 02/21/18 15:09 02/21/18 15:09 02/21/18 15:09 02/21/18 15:09 02/21/18 15:09 Intake and Output: 02/21/18 02/22/18 18:59 06:59 Intake Total 300 400 Balance 300 400 - Medications Medications: Current Medications Acetaminophen (Tylenol 325mg Tab) 650 mg PO HS [facility] Last Admin: 02/21/18 21:18 Dose: Not Given Clopidogrel Bisulfate (Plavix) 75 mg PO DAILY [facility] Last Admin: 02/21/18 10:47 Dose: 75 mg Fluoxetine HCl (Prozac) 20 mg PO DAILY [facility] Last Admin: 02/21/18 10:47 Dose: 20 mg Furosemide (Lasix) 40 mg PO DAILY [facility] Last Admin: 02/21/18 10:48 Dose: 40 mg Losartan Potassium (Cozaar) 25 mg PO DAILY [facility] Last Admin: 02/21/18 10:46 Dose: 25 mg Metoprolol Tartrate (Lopressor) 75 mg PO DAILY [facility] Last Admin: 02/21/18 10:46 Dose: 75 mg Mupirocin (Bactroban Ointment) 1 gm EXT DAILY [facility] Last Admin: 02/21/18 11:00 Dose: 1 applic Pantoprazole Sodium (Protonix Ec Tab) 40 mg PO DAILY [facility] Last Admin: 02/21/18 10:48 Dose: 40 mg Rivaroxaban (Xarelto) 10 mg PO DAILY [facility] Last Admin: 02/21/18 10:47 Dose: 10 mg Rosuvastatin Calcium (Crestor) [address] [facility] Last Admin: 02/21/18 21:18 Dose: Not Given - Labs Labs: 02/21/18 07:15 02/21/18 07:15 PT 15.5 SECONDS (9.7-12.2) H 02/18/18 06:23 INR 1.4 02/18/18 06:23 APTT 45 SECONDS (21-34) H 02/11/18 17:20 Assessment and Plan - Assessment and Plan (Free Text) Assessment: Patient seen and evaluated personally by me Plan of care d/w the resident and as documented
--- NOTE | 2018-02-21 21:12 | CARD ---
APPROVED REPORT EKG Measurement Heart [id number] <Conclusion> Atrial fibrillation with rapid ventricular response Left bundle branch block Abnormal ECG
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
[2018-02-22] MEDS: Pantoprazole 40 mg EC Tab PO SCH (10:31)
--- NOTE | 2018-02-22 13:54 | CT ---
PROCEDURE: CT HEAD WITHOUT CONTRAST. HISTORY: Confusion no dictation on blood thinner COMPARISON: No prior TECHNIQUE: Axial computed tomography images were obtained through the head/brain without intravenous contrast. Radiation dose: Total exam DLP = 1141.85 mGy-cm. This CT exam was performed using one or more of the following dose reduction techniques: Automated exposure control, adjustment of the mA and/or kV according to patient size, and/or use of iterative reconstruction technique. FINDINGS: HEMORRHAGE: No acute parenchymal, subarachnoid or extra-axial hemorrhage. BRAIN: Mild to moderate confluent chronic periventricular white matter ischemic changes. . There are also ischemic changes seen scattered about bold basal nuclei and within the mid to the to lower brainstem as well. No obvious parenchymal nor extra-axial mass or collection seen on this noncontrast study. Vascular calcifications VENTRICLES: No obstructive hydrocephalus. CALVARIUM: There are no acute calvarial fracture seen. PARANASAL SINUSES: Unremarkable as visualized. No significant inflammatory changes. MASTOID AIR CELLS: Unremarkable as visualized. No inflammatory changes. OTHER FINDINGS: None. IMPRESSION: No evidence of acute intracranial hemorrhage. Mild to moderate chronic white matter ischemic changes, bilateral basal nuclei and brainstem. Mild -moderate generalized volume loss
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
--- NOTE | 2018-02-22 23:16 | CP.PCM.PN ---
Subjective - Date & Time of Evaluation Date of Evaluation: 02/22/18 Time of Evaluation: 16:20 - Subjective Subjective: Patient seen and evaluated Discharge postponed due to altered mental status. Neuro eval in progress Objective - Vital Signs/Intake and Output Vital Signs (last 24 hours): Temp Pulse Resp BP Pulse Ox 97.4 F L 74 20 133/79 98 02/22/18 15:00 02/22/18 15:00 02/22/18 15:00 02/22/18 15:00 02/22/18 15:00 Intake and Output: 02/22/18 02/23/18 18:59 06:59 Intake Total 150 Output Total 950 Balance -800 - Medications Medications: Current Medications Acetaminophen (Tylenol 325mg Tab) 650 mg PO [facility] Last Admin: 02/22/18 21:09 Dose: 650 mg Clopidogrel Bisulfate (Plavix) 75 mg PO DAILY [facility] Last Admin: 02/22/18 10:31 Dose: 75 mg Fluoxetine HCl (Prozac) 20 mg PO DAILY [facility] Last Admin: 02/22/18 10:32 Dose: 20 mg Furosemide (Lasix) 40 mg PO DAILY [facility] Last Admin: 02/22/18 10:31 Dose: 40 mg Losartan Potassium (Cozaar) 25 mg PO DAILY [facility] Last Admin: 02/22/18 10:31 Dose: 25 mg Metoprolol Tartrate (Lopressor) 75 mg PO DAILY [facility] Last Admin: 02/22/18 10:31 Dose: 75 mg Mupirocin (Bactroban Ointment) 1 gm EXT DAILY [facility] Last Admin: 02/22/18 10:31 Dose: 1 applic Pantoprazole Sodium (Protonix Ec Tab) 40 mg PO DAILY [facility] Last Admin: 02/22/18 10:31 Dose: 40 mg Rivaroxaban (Xarelto) 10 mg PO DAILY [facility] Last Admin: 02/22/18 10:32 Dose: 10 mg Rosuvastatin Calcium (Crestor) 5 mg PO [facility] Last Admin: 02/22/18 21:10 Dose: 5 mg - Labs Labs: 02/21/18 07:15 02/21/18 07:15 PT 15.5 SECONDS (9.7-12.2) H 02/18/18 06:23 INR 1.4 02/18/18 06:23 APTT 45 SECONDS (21-34) H 02/11/18 17:20
[2018-02-23 08:18] LABS: BASO # 0.1 K/uL (0.0-0.2); BASO % 0.9 % (0.0-2.0); EOS # 0.3 K/uL (0.0-0.7); EOS % 4.1 % (0.0-4.0); HEMOGLOBIN 15.7 g/dL (12.0-18.0); LYMPH # 0.7 K/uL (1.0-4.3); LYMPH % 8.2 % (20.0-40.0); MEAN CELL VOLUME 96.4 fL (80.0-94.0); MEAN CORPUSCULAR HEMOGLOBIN 33.4 pg (27.0-31.0); MEAN CORPUSCULAR HGB CONC 34.7 g/dL (33.0-37.0); MEAN PLATELET VOLUME 8.4 fL (7.2-11.7); MONO % 12.6 % (0.0-10.0); NEUT # 6.2 K/uL (1.8-7.0); NEUT % 74.2 % (50.0-75.0); PLATELET COUNT 241 K/uL (130-400); RED CELL DISTRIBUTION WIDTH 14.7 % (11.5-14.5); WHITE BLOOD COUNT 8.3 K/uL (4.8-10.8)
[2018-02-23 08:28] LABS: ALB/GLOB RATIO 1.4 (1.0-2.1); ALBUMIN 4.3 g/dL (3.5-5.0); ALT/SGPT 44 U/L (21-72); AST/SGOT 61 U/L (17-59); BLOOD UREA NITROGEN 20 mg/dL (9-20); CALCIUM 9.2 mg/dl (8.6-10.4); GFR AFRICAN-AMERICAN > 60; GFR NON-AFRICAN AMERICAN > 60
--- NOTE | 2018-02-23 08:29 | CP.PCM.PN ---
<Xena Greene - Last Filed: 02/23/18 19:41> Subjective - Date & Time of Evaluation Date of Evaluation: 02/23/18 Time of Evaluation: 08:29 - Subjective Subjective: Progress note for Hospitalist service Patient seen and examined at bedside. He is more alert today, compared to yesterday. He is shaving at bedside. He denies fevers, chills, chest pain, shortness of breath, abdominal pain, nausea, vomiting, diarrhea. Awaiting authorization for subacute rehab. Objective - Vital Signs/Intake and Output Vital Signs (last 24 hours): Temp Pulse Resp BP Pulse Ox 98.2 F 76 20 152/98 H 96 02/23/18 04:00 02/23/18 04:00 02/23/18 04:00 02/23/18 04:00 02/23/18 04:00 Intake and Output: 02/23/18 02/23/18 06:59 18:59 Intake Total 150 Output Total 950 Balance -800 - Medications Medications: Current Medications Acetaminophen (Tylenol 325mg Tab) 650 mg PO [facility] Last Admin: 02/22/18 21:09 Dose: 650 mg Clopidogrel Bisulfate (Plavix) 75 mg PO DAILY [facility] Last Admin: 02/22/18 10:31 Dose: 75 mg Fluoxetine HCl (Prozac) 20 mg PO DAILY [facility] Last Admin: 02/22/18 10:32 Dose: 20 mg Furosemide (Lasix) 40 mg PO DAILY [facility] Last Admin: 02/22/18 10:31 Dose: 40 mg Losartan Potassium (Cozaar) 25 mg PO DAILY [facility] Last Admin: 02/22/18 10:31 Dose: 25 mg Metoprolol Tartrate (Lopressor) 75 mg PO DAILY [facility] Last Admin: 02/22/18 10:31 Dose: 75 mg Mupirocin (Bactroban Ointment) 1 gm EXT DAILY [facility] Last Admin: 02/22/18 10:31 Dose: 1 applic Pantoprazole Sodium (Protonix Ec Tab) 40 mg PO DAILY [facility] Last Admin: 02/22/18 10:31 Dose: 40 mg Rivaroxaban (Xarelto) 10 mg PO DAILY [facility] Last Admin: 02/22/18 10:32 Dose: 10 mg Rosuvastatin Calcium (Crestor) 5 mg PO [facility] Last Admin: 02/22/18 21:10 Dose: 5 mg - Labs Labs: 02/23/18 08:06 02/23/18 08:06 PT 15.5 SECONDS (9.7-12.2) H 02/18/18 06:23 INR 1.4 02/18/18 06:23 APTT 45 SECONDS (21-34) H 02/11/18 17:20 - Constitutional Appears: Well, No Acute Distress - Head Exam Head Exam: ATRAUMATIC, NORMOCEPHALIC - Eye Exam Eye Exam: EOMI - ENT Exam ENT Exam: Mucous Membranes Moist - Neck Exam Additional comments: rash on neck resolving. - Respiratory Exam Respiratory Exam: Clear to Ausculation Bilateral, NORMAL BREATHING PATTERN. absent: Rales, Rhonchi, Wheezes, Stridor - Cardiovascular Exam Cardiovascular Exam: REGULAR RHYTHM, +S1, +S2 Additional comments: AICD in place - GI/Abdominal Exam GI & Abdominal Exam: Soft, Normal Bowel Sounds. absent: Distended, Firm, Guarding, Rigid, Tenderness - Extremities Exam Extremities Exam: Pedal Edema. absent: Calf Tenderness Additional comments: Left heel ulcer. Pedal edema of left foot - Neurological Exam Neurological Exam: Alert, Awake, Oriented x3 Assessment and Plan - Assessment and Plan (Free Text) Assessment: 82 year old male with a history of s/p TAVR, history of A fib, pacemaker, HTN , left heel ulcer, gastritis, depression who was admitted for shortness of breath. Patient was transferred to [place] for AICD placement and patient returned after surgery. Plan: Assessment/plan Plan: Confusion Altered mental status * Patient received Solumedrol for rash on neck, may explain confusion today. * Head CT: 02/20/18: No evidence of acute intracranial hemorrhage. Mild to moderate chronic white matter ischemic changes, bilateral basal nuclei and brainstem. Mild -moderate generalized volume loss * Neurologist Dr. Hartman consulted, help appreciated. 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 There is also significant stenosis of the left carotid bifurcation origin left internal carotid artery estimated at approximately 45 % . Significant on stenosis proximal intradural segment distal left vertebral artery estimated at approximately 70 %. The intra cerebral arteries are patent though there are calcified plaque changes along the cavernous segments. See above discussion for additional details and findings. Dyspnea Assessment/Plan 02/20: - Xarelto 10mg resumed per cardio recs - Plavix 75 mg resumed per cardio recs 02/19: * Cardiology (Dr. Vu) on case help appreciated * Dr. Vu agreed to start Xarelto 02/20/18 * Monitor on telemetry * Pertinent positive: s/p TAVR (2014), Atrial fibrillation (on AC), Pacemaker , Smoking history * Pacemaker placed in 03/2015 - last interrogated was last week, reports his dispensing optician Dr Byrd told him at that time there was an issue with his pacemaker and that it needs to be rechecked. Patient completed Holter with Dr. Byrd; No V-tachy noted per discussion. * Duonebs PRN shortness of breath * D-dimer: negative * Elevated probnp * Troponin X3 Atrial Fibrillation 02/20: - Xarelto 10mg resumed per cardio recs - Plavix 75 mg resumed per cardio recs 02/19: * CHADS: 3 * Patient is on Xarelto 10mg PO daily * Metoprolol Tartrate 75mg PO daily * Echo 02/13 - technically difficult and limited study, LV severely dialted, mild asymmetric left ventricular hypertrophy, left ventricle systolic function mildly impaired, EF 40%, global hypokinesis of left ventricle, left ventricle diastolic function is normal (see full report) * Repeat EKG 02/19/18: A fib with RVR 106, LBBB. LBBB unchanged from prior EKG on 02/12 * Lopressor 75mg PO given History of Aortic Stenosis s/p TAVR 2014 with low Ejection Fraction Coronary Artery Disease + Stent History of Pacemaker Cardiomyopathy * monitor on telemetry * Patient's outpatient dispensing optician, Dr. Hawk Byrd * Echo 02/13 - technically difficult and limited study, LV severely dialted, mild asymmetric left ventricular hypertrophy, left ventricle systolic function mildly impaired, EF 40%, global hypokinesis of left ventricle, left ventricle diastolic function is normal (see full report) * MUGA 02/14 - EF 29% * Patient will need AICD given low Ejection Fraction noted by echo and MUGA * Patient had placement of AICD at [place] over the weekend * Patient had noted ecchymoses over the site with tenderness to palpation * Xarelto continued. Resolving extensive ecchymoses * BNP 1937 * Measure daily weights, Is/Os * Continue home medications * Lopressor 75mg daily * Crestor 5mg POqHS * Plavix 75mg daily * Lasix 40mg daily * Crestor 5mg POqHS Hypertension * Monitor vital signs * Cozaar 25mg daily * Lopressor 75mg daily Left heel ulcer * Patient's private stunt man, Dr Kenney who he sees routinely for Darkin solution * Patient has pending appointment on SundayFebruary 19 * Daily dressing changes Peripheral Vascular Disease * 2 veins removed in his left lower extremity (10/2017 and 2014) History of Gastritis * Pantoprazole 40mg daily History of Depression * Fluoxetine 20mg PO daily Rash 02/20: - Benadryl 25 mg IV stat dose, w/ additional 25 IV Q8 for 3 additional dose - Solumedrol 40 mg IV stat dose w/ additional 40 IV Q8 for 3 additional dose Prophylaxis * Protonix 40mg PO daily * resume Xarelto 10mg * SCDs * PT eval and treat * Awaiting authorization for subacute rehab [facility] Case discussed with Dr. Lai <Keke Lai V - Last Filed: 02/23/18 22:55> Objective - Vital Signs/Intake and Output Vital Signs (last 24 hours): Temp Pulse Resp BP Pulse Ox 97.6 F 85 20 126/67 98 02/23/18 07:00 02/23/18 07:00 02/23/18 07:00 02/23/18 07:00 02/23/18 07:00 Intake and Output: 02/23/18 02/23/18 06:59 18:59 Intake Total 150 Output Total 950 Balance -800 - Medications Medications: Current Medications Acetaminophen (Tylenol 325mg Tab) 650 mg PO [facility] Last Admin: 02/22/18 21:09 Dose: 650 mg Clopidogrel Bisulfate (Plavix) 75 mg PO DAILY [facility] Last Admin: 02/22/18 10:31 Dose: 75 mg Fluoxetine HCl (Prozac) 20 mg PO DAILY [facility] Last Admin: 02/22/18 10:32 Dose: 20 mg Furosemide (Lasix) 40 mg PO DAILY [facility] Last Admin: 02/22/18 10:31 Dose: 40 mg Losartan Potassium (Cozaar) 25 mg PO DAILY [facility] Last Admin: 02/22/18 10:31 Dose: 25 mg Metoprolol Tartrate (Lopressor) 75 mg PO DAILY [facility] Last Admin: 02/22/18 10:31 Dose: 75 mg Mupirocin (Bactroban Ointment) 1 gm EXT DAILY [facility] Last Admin: 02/22/18 10:31 Dose: 1 applic Pantoprazole Sodium (Protonix Ec Tab) 40 mg PO DAILY [facility] Last Admin: 02/22/18 10:31 Dose: 40 mg Rivaroxaban (Xarelto) 10 mg PO DAILY [facility] Last Admin: 02/22/18 10:32 Dose: 10 mg Rosuvastatin Calcium (Crestor) 5 mg PO HS [facility] Last Admin: 02/22/18 21:10 Dose: 5 mg - Labs Labs: 02/23/18 08:06 02/23/18 08:06 PT 15.5 SECONDS (9.7-12.2) H 02/18/18 06:23 INR 1.4 02/18/18 06:23 APTT 45 SECONDS (21-34) H 02/11/18 17:20 Attending/Attestation - Attestation I have personally seen and examined this patient.: Yes I have fully participated in the care of the patient.: Yes I have reviewed all pertinent clinical information, including history, physical exam and plan: Yes Notes (Text): Patient seen, examined, case discussed with medical secretary teacher. Patient seen this morning. Patient is in good spirits. Patient is back to normal. He recognizes me, and knows he was confused yesterday. When I spoke with him, he does confirm he did not sleep well and had hallucinatiosn but reports these are resolved. I suspect it is from the steroids used previously to relieve his hives over his neck which has now faded. Appreciate input by neurology. Patient is awaiting CT head and neck. Patient is eager to shaved. Patient cleared to shave since two days ago. CT head (02/22/18): no evidence of acute intracranial hemorrhage. Mild to moderate chronic white matter ischemic changes, bilateral basal nuclei and brainstem, mild to moderate generalized volume loss. We are awaiting authorization for [facility] as preference for the patient. Assessment/Plan 1) Dyspnea Assessment/Plan * Cardiology (Dr. Vu) on case help appreciated * Monitor on telemetry * Pertinent positive: s/p TAVR (2014), Atrial fibrillation (on AC), Pacemaker , Smoking history * Pacemaker placed in 03/2015 - last interrogated was last week, reports his dispensing optician Dr Byrd told him at that time there was an issue with his pacemaker and that it needs to be rechecked. Patient completed Holter with Dr. Byrd; No V-tachy noted per discussion. * AICD placed on 02/15/18 * Restart Xarelto * Duonebs PRN shortness of breathe * D-dimer: negative * Elevated probnp * Troponin X3 2) Atrial Fibrillation Assessment/Plan * CHADS: 3 * Patient is on Xarelto 10mg PO daily * Metoprolol Tartrate 75mg PO daily * Echo 02/13 - technically difficult and limited study, LV severely dialted, mild asymmetric left ventricular hypertrophy, left ventricle systolic function mildly impaired, EF 40%, global hypokinesis of left ventricle, left ventricle diastolic function is normal (see full report) 3) History of Aortic Stenosis s/p TAVR 2014 with low Ejection Fraction Coronary Artery Disease + Stent History of Pacemaker Cardiomyopathy Assessment/Plan * monitor on telemetry * Patient's outpatient dispensing optician, Dr. Hawk Byrd * Echo 02/13 - technically difficult and limited study, LV severely dialted, mild asymmetric left ventricular hypertrophy, left ventricle systolic function mildly impaired, EF 40%, global hypokinesis of left ventricle, left ventricle diastolic function is normal (see full report) * MUGA 02/14 - EF 29% * Patient will need AICD given low Ejection Fraction noted by echo and MUGA * Patient had placement of AICD at [place] over the weekend * Patient had noted ecchymoses over the site with tenderness to palpation * held Xarelto secondary to extensive ecchymoses by cardio-->recommend to restart 02/20/18 * BNP 1938 * Measure daily weights, Is/Os * Continue home medications * Lopressor 75mg daily * Crestor 5mg POqHS * Plavix 75mg daily * Lasix 40mg daily * Crestor 5mg POqHS 4) Hypertension Assessment/Plan * Monitor vital signs * Cozaar 25mg daily * Lopressor 75mg daily 5) Right (not left) heel ulcer Assessment/Plan * Patient's private stunt man, Dr Kenney who he sees routinely for Darkin solution * Patient has called his stunt man to reschedule appointment * Daily dressing changes 6) Peripheral Vascular Disease Assessment/Plan * 2 veins removed in his left lower extremity (10/2017 and 2014) 7) History of Gastritis Assessment/Plan * Pantoprazole 40mg dialy 8) History of Depression Assessment/Plan * Fluoxetine 20mg PO daily 9) Rash-->resolved Assessment/Plan * Completed Benadryl 25mg IV Q8 X3 doses * Completed Solumderol 40mg IV Q8H X3 doses * Mupricin ointment 10) Delirium-->Resolved 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 Hartman) per request by dispensing optician * CT head (02/22/18): no evidence of acute intracranial hemorrhage. Mild to moderate chronic white matter ischemic changes, bilateral basal nuclei and brainstem, mild to moderate generalized volume loss. * Ordered for head/neck CT 11) Prophylaxis * Protonix 40mg PO daily * Xarelto 10mg PO daily * SCDs * PT eval and treat * Changed mind to subacute rehab eval for discharge planning Disposition: Patient is amenable to subacute rehab eval preference for [facility].
[2018-02-23] MEDS ORDERED: Potassium Chloride 20 mEq ER Tab PO ONE (08:36)
[2018-02-23] MEDS: Pantoprazole 40 mg EC Tab PO SCH (10:44)
[2018-02-23 11:30] LABS: LYMPHOCYTE 9 % (20-40); TOTAL CELLS COUNTED 100
[2018-02-23 11:31] LABS: ANISOCYTOSIS SLIGHT; MONOCYTE 12 % (0-10); NEUTROPHIL 79 % (50-75); PLATELET ESTIMATE NORMAL (NORMAL)
[2018-02-23 11:32] LABS: LARGE PLATELETS PRESENT
[2018-02-23] MEDS ORDERED: Iodixanol 320 MG/ML 100 ML BOTTLE IV ONE (12:00)
--- NOTE | 2018-02-23 13:27 | CT ---
PROCEDURE: CT Angiography of the neck and brain dated 02/23/2018 HISTORY: Confusion COMPARISON: Correlation made with CT scan of the brain 02/22/2018. TECHNIQUE: Contiguous helical/transaxial images of the neck and brain were obtained in the arteriographic phase of enhancement. Coronal and sagittal reformats also generated. IV contrast dose: 100 cc Visipaque 320 Radiation Dose - DLP: 551.12 mGy-cm This CT exam was performed using one or more of the following dose reduction techniques: Automated exposure control, adjustment of the mA and/or kV according to patient size, and/or use of iterative reconstruction technique. . FINDINGS: There are partially calcified mass could sclerotic plaque changes seen along the thoracic aorta as well as the origins of the great vessels. Three-vessel arch. Calcified plaque changes extend into the proximal left subclavian artery. There are small calcified plaque changes also seen in the mid common carotid artery with thumb more significant calcified plaque at the left carotid bifurcation/origin left internal carotid artery with estimated narrowing at the carotid bifurcation/proximal internal carotid artery approximately 45%. Several calcified plaque seen along right common carotid artery with more significant calcified plaque at the level of the right carotid bifurcation extending into the proximal right internal carotid artery . Changes result in significant stenosis of the right carotid bifurcation and origin of the right internal carotid artery estimated approximately estimated between 85-90 % The distal internal carotid arteries including the petrous cavernous and supraclinoid segments are patent however there are calcified plaque changes seen along the cavernous segments. The vertebral arteries are patent. Some very minimal asymmetry of the vertebral arteries left-sided which is slightly larger in caliber than the right. There are partially calcified plaque changes seen at the along the proximal intradural segment of the distal left vertebral artery with narrowing estimated at approximately 70 % The distal on branches of the anterior middle and posterior cerebral arteries are patent as well. No evidence of large aneurysm nor vascular malformation. The OTHER FINDINGS: Note made of a elliptical shaped fluid collection within subcutaneous tissues left posterior submandibular region measuring approximately 17 mm x 12 mm. This could represent a large sebaceous cyst the or inspissated sweat gland. 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 There is also significant stenosis of the left carotid bifurcation origin left internal carotid artery estimated at approximately 45 % . . Significant on stenosis proximal intradural segment distal left vertebral artery estimated at approximately 70 % The intra cerebral arteries are patent though there are calcified plaque changes along the cavernous segments. See above discussion for additional details and findings.
--- NOTE | 2018-02-23 23:21 | CP.PCM.PN ---
Subjective - Date & Time of Evaluation Date of Evaluation: 02/23/18 Time of Evaluation: 15:35 - Subjective Subjective: Patient seen and evaluated comfortable Less confused Objective - Vital Signs/Intake and Output Vital Signs (last 24 hours): Temp Pulse Resp BP Pulse Ox 97.7 F 80 20 118/66 97 02/23/18 15:07 02/23/18 15:07 02/23/18 15:07 02/23/18 15:07 02/23/18 15:07 Intake and Output: 02/23/18 02/24/18 18:59 06:59 Intake Total 360 Balance 360 - Medications Medications: Current Medications Acetaminophen (Tylenol 325mg Tab) 650 mg PO HS [facility] Last Admin: 02/23/18 21:22 Dose: 650 mg Clopidogrel Bisulfate (Plavix) 75 mg PO DAILY [facility] Last Admin: 02/23/18 10:44 Dose: 75 mg Fluoxetine HCl (Prozac) 20 mg PO DAILY [facility] Last Admin: 02/23/18 10:46 Dose: 20 mg Furosemide (Lasix) 40 mg PO DAILY [facility] Last Admin: 02/23/18 10:47 Dose: 40 mg Losartan Potassium (Cozaar) 25 mg PO DAILY [facility] Last Admin: 02/23/18 10:44 Dose: 25 mg Metoprolol Tartrate (Lopressor) 75 mg PO DAILY [facility] Last Admin: 02/23/18 10:47 Dose: 75 mg Mupirocin (Bactroban Ointment) 1 gm EXT DAILY [facility] Last Admin: 02/23/18 10:46 Dose: 1 applic Pantoprazole Sodium (Protonix Ec Tab) 40 mg PO DAILY [facility] Last Admin: 02/23/18 10:44 Dose: 40 mg Rivaroxaban (Xarelto) 10 mg PO DAILY [facility] Last Admin: 02/23/18 10:46 Dose: 10 mg Rosuvastatin Calcium (Crestor) 5 mg PO HS [facility] Last Admin: 02/23/18 21:24 Dose: 5 mg - Labs Labs: 02/23/18 08:06 02/23/18 08:06 PT 15.5 SECONDS (9.7-12.2) H 02/18/18 06:23 INR 1.4 02/18/18 06:23 APTT 45 SECONDS (21-34) H 02/11/18 17:20
[2018-02-24 08:23] LABS: BASO # 0.1 K/uL (0.0-0.2); BASO % 0.7 % (0.0-2.0); EOS # 0.5 K/uL (0.0-0.7); EOS % 6.6 % (0.0-4.0); HEMOGLOBIN 15.5 g/dL (12.0-18.0); LYMPH # 0.8 K/uL (1.0-4.3); LYMPH % 11.3 % (20.0-40.0); MEAN CELL VOLUME 96.3 fL (80.0-94.0); MEAN CORPUSCULAR HEMOGLOBIN 33.5 pg (27.0-31.0); MEAN CORPUSCULAR HGB CONC 34.8 g/dL (33.0-37.0); MEAN PLATELET VOLUME 8.4 fL (7.2-11.7); MONO # 0.8 K/uL (0.0-0.8); MONO % 11.4 % (0.0-10.0); RBC 4.62 Mil/uL (4.40-5.90); RED CELL DISTRIBUTION WIDTH 15.1 % (11.5-14.5); WHITE BLOOD COUNT 7.1 K/uL (4.8-10.8)
[2018-02-24 08:39] LABS: ALB/GLOB RATIO 1.4 (1.0-2.1); ALBUMIN 4.3 g/dL (3.5-5.0); ALT/SGPT 45 U/L (21-72); AST/SGOT 58 U/L (17-59); BLOOD UREA NITROGEN 22 mg/dL (9-20); CALCIUM 9.4 mg/dl (8.6-10.4); GFR AFRICAN-AMERICAN > 60; GFR NON-AFRICAN AMERICAN > 60
--- NOTE | 2018-02-24 09:54 | CP.PCM.PN ---
Subjective - Date & Time of Evaluation Date of Evaluation: 02/24/18 Time of Evaluation: 09:49 - Subjective Subjective: Mr. Dye was seen and examined at the bedside. He is alert, oriented, able to state of his episode of confusion. He denies any headache, dizziness, lightheadedness,. He is able to follow simple commnads and uses cane for ambulation. CTA of the head and neck showed significant stenosis right carotid bifurcation origin right ICA estimated between 85-90%. There is also significant stenosis of the left carotid bifurcation origin left ICA estimated 45%. Significant stenosis on proximal intradural segment distal left vetebral artery estimated 70 %. The intra cerebral arteries are patent though there are calcified plaque changes along the cavernous segments.There was no untoward events overnight. Objective - Vital Signs/Intake and Output Vital Signs (last 24 hours): Temp Pulse Resp BP Pulse Ox 97.8 F 98 H 20 120/74 98 02/24/18 07:00 02/24/18 07:00 02/24/18 07:00 02/24/18 07:00 02/24/18 07:00 - Medications Medications: Current Medications Acetaminophen (Tylenol 325mg Tab) 650 mg PO HS [facility] Last Admin: 02/23/18 21:22 Dose: 650 mg Clopidogrel Bisulfate (Plavix) 75 mg PO DAILY [facility] Last Admin: 02/23/18 10:44 Dose: 75 mg Fluoxetine HCl (Prozac) 20 mg PO DAILY [facility] Last Admin: 02/23/18 10:46 Dose: 20 mg Furosemide (Lasix) 40 mg PO DAILY [facility] Last Admin: 02/23/18 10:47 Dose: 40 mg Losartan Potassium (Cozaar) 25 mg PO DAILY [facility] Last Admin: 02/23/18 10:44 Dose: 25 mg Metoprolol Tartrate (Lopressor) 75 mg PO DAILY [facility] Last Admin: 02/23/18 10:47 Dose: 75 mg Mupirocin (Bactroban Ointment) 1 gm EXT DAILY [facility] Last Admin: 02/23/18 10:46 Dose: 1 applic Pantoprazole Sodium (Protonix Ec Tab) 40 mg PO DAILY [facility] Last Admin: 02/23/18 10:44 Dose: 40 mg Rivaroxaban (Xarelto) 10 mg PO DAILY [facility] Last Admin: 02/23/18 10:46 Dose: 10 mg Rosuvastatin Calcium (Crestor) 5 mg PO HS [facility] Last Admin: 02/23/18 21:24 Dose: 5 mg - Labs Labs: 02/24/18 08:07 02/24/18 08:07 PT 15.5 SECONDS (9.7-12.2) H 02/18/18 06:23 INR 1.4 02/18/18 06:23 APTT 45 SECONDS (21-34) H 02/11/18 17:20 - Constitutional Appears: No Acute Distress - Head Exam Head Exam: NORMAL INSPECTION - Eye Exam Pupil Exam: PERRL - Neurological Exam Neurological Exam: Alert, Awake, Oriented x3 Neuro motor strength exam: Left Upper Extremity: 4, Right Upper Extremity: 4, Left Lower Extremity: 4, Right Lower Extremity: 4 - Skin Additional comments: left arm with large ecchymosis Assessment and Plan (1) Confusion Assessment & Plan: Case discussed with Dr. Hartman, continue all current medical regimen. Recommend neurointerventionalist consult to evaluate right ICA, hydration, keep head of bed elevated, treat any electrolyte abnormalities. Status: Acute
--- NOTE | 2018-02-24 11:01 | CP.PCM.PN ---
Subjective - Date & Time of Evaluation Date of Evaluation: 02/24/18 Time of Evaluation: 10:50 - Subjective Subjective: Medical Attending Note: Patient seen and examined this morning. Patient denies headache, denies chest pain, denies palpitations, denies abdominal pain, denies shortness of breathe, denies constipation, denies diarrhea, denies urinary complaints. Patient is able to say correct date, place , and recognizes me as his doctor. Patient is eager to go to [facility] when we have receive authorization. I have spoken with patient's nurse in regards to left heel dressing and reports she will change. Objective - Vital Signs/Intake and Output Vital Signs (last 24 hours): Temp Pulse Resp BP Pulse Ox 97.8 F 98 H 20 120/74 98 02/24/18 07:00 02/24/18 07:00 02/24/18 07:00 02/24/18 07:00 02/24/18 07:00 - Medications Medications: Current Medications Acetaminophen (Tylenol 325mg Tab) 650 mg PO [facility] Last Admin: 02/23/18 21:22 Dose: 650 mg Clopidogrel Bisulfate (Plavix) 75 mg PO DAILY [facility] Last Admin: 02/23/18 10:44 Dose: 75 mg Fluoxetine HCl (Prozac) 20 mg PO DAILY [facility] Last Admin: 02/23/18 10:46 Dose: 20 mg Furosemide (Lasix) 40 mg PO DAILY [facility] Last Admin: 02/23/18 10:47 Dose: 40 mg Losartan Potassium (Cozaar) 25 mg PO DAILY [facility] Last Admin: 02/23/18 10:44 Dose: 25 mg Metoprolol Tartrate (Lopressor) 75 mg PO DAILY [facility] Last Admin: 02/23/18 10:47 Dose: 75 mg Mupirocin (Bactroban Ointment) 1 gm EXT DAILY [facility] Last Admin: 02/23/18 10:46 Dose: 1 applic Pantoprazole Sodium (Protonix Ec Tab) 40 mg PO DAILY [facility] Last Admin: 02/23/18 10:44 Dose: 40 mg Rivaroxaban (Xarelto) 10 mg PO DAILY [facility] Last Admin: 02/23/18 10:46 Dose: 10 mg Rosuvastatin Calcium (Crestor) 5 mg PO HS [facility] Last Admin: 02/23/18 21:24 Dose: 5 mg - Labs Labs: 02/24/18 08:07 02/24/18 08:07 PT 15.5 SECONDS (9.7-12.2) H 02/18/18 06:23 INR 1.4 02/18/18 06:23 APTT 45 SECONDS (21-34) H 02/11/18 17:20 - Constitutional Appears: Non-toxic, No Acute Distress - Head Exam Head Exam: NORMAL INSPECTION Additional comments: AICD--> scab healing, ecchymoses over the left chest resolving, no tenderness to palpation - Eye Exam Eye Exam: EOMI - ENT Exam ENT Exam: Mucous Membranes Moist - Respiratory Exam Respiratory Exam: Clear to Ausculation Bilateral, NORMAL BREATHING PATTERN. absent: Rales, Rhonchi, Wheezes - Cardiovascular Exam Cardiovascular Exam: REGULAR RHYTHM, +S1, +S2 - GI/Abdominal Exam GI & Abdominal Exam: Soft. absent: Distended, Firm, Guarding, Rigid, Tenderness , Normal Bowel Sounds, Rebound - Extremities Exam Extremities Exam: absent: Pedal Edema, Tenderness Additional comments: left heel: dressing wrapped; discharge noted - Neurological Exam Neurological Exam: Alert, Awake, Oriented x3 Neuro motor strength exam: Left Upper Extremity: 5, Right Upper Extremity: 5, Left Lower Extremity: 5, Right Lower Extremity: 5 - Psychiatric Exam Psychiatric exam: Normal Affect, Normal Mood - Skin Skin Exam: Dry, Intact, Warm Assessment and Plan - Assessment and Plan (Free Text) Assessment: Patient seen, examined, case discussed with mobile paramedical examiner. Patient seen this morning. Patient is in good spirits.. He recognizes me, says correct date, time, plac and knows he was confused two days ago. Patient had completed CT head and neck yesterday---> significant stenosis right cartoid bifurcation origin right internal cartoid artery estimated between 85-90 %, also significant stenosis of the left carotid bifurcation origin left interval carotid artery estimated at approximately 45%. Significant on stenosis proximal intradural segment distal left vertebral artery at 70%. intracerebral arteries are patent though are calcified plaque changes along the cavernous segments. Discussed with nurse practitioner on neurology service, she will f/u with neuro-interventionalist at this time for recommendations/intervention. We are awaiting authorization for [facility] as preference for the patient. Assessment/Plan 1) Dyspnea Assessment/Plan * Cardiology (Dr. Vu) on case help appreciated * Monitor on telemetry * Pertinent positive: s/p TAVR (2014), Atrial fibrillation (on AC), Pacemaker , Smoking history * Pacemaker placed in 03/2015 - last interrogated was last week, reports his statement request clerk Dr Byrd told him at that time there was an issue with his pacemaker and that it needs to be rechecked. Patient completed Holter with Dr. Byrd; No V-tachy noted per discussion. 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 aHrtman) per request by statement request clerk * CT head (02/22/18): no evidence of acute intracranial hemorrhage. Mild to moderate chronic white matter ischemic changes, bilateral basal nuclei and brainstem, mild to moderate generalized volume loss. * CT head and neck (02/22/18)---> significant stenosis right cartoid bifurcation origin right internal cartoid artery estimated between 85-90%, also significant stenosis of the left carotid bifurcation origin left interval carotid artery estimated at approximately 45%. Significant on stenosis proximal intradural segment distal left vertebral artery at 70%. intracerebral arteries are patent though are calcified plaque changes along the cavernous segments. Discussed with nurse practitioner on neurology service, she will f/u with neuro- interventionalist at this time for recommendations/intervention.. 3) Atrial Fibrillation Assessment/Plan * CHADS: 3 * Patient is on Xarelto 10mg PO daily * Metoprolol Tartrate 75mg PO daily * Echo 02/13 - technically difficult and limited study, LV severely dialted, mild asymmetric left ventricular hypertrophy, left ventricle systolic function mildly impaired, EF 40%, global hypokinesis of left ventricle, left ventricle diastolic function is normal (see full report) 4) History of Aortic Stenosis s/p TAVR 2014 with low Ejection Fraction Coronary Artery Disease + Stent History of Pacemaker Cardiomyopathy Assessment/Plan * monitor on telemetry * Patient's outpatient statement request clerk, Dr. Hawk Byrd * Echo 02/13 - technically difficult and limited study, LV severely dialted, mild asymmetric left ventricular hypertrophy, left ventricle systolic function mildly impaired, EF 40%, global hypokinesis of left ventricle, left ventricle diastolic function is normal (see full report) * MUGA 02/14 - EF 29% * Patient will need AICD given low Ejection Fraction noted by echo and MUGA * Patient had placement of AICD at [place] over the weekend * Patient had noted ecchymoses over the site with tenderness to palpation * held Xarelto secondary to extensive ecchymoses by cardio-->recommend to restart 02/20/18 * BNP 1940 * Measure daily weights, Is/Os * Continue home medications * Lopressor 75mg daily * Crestor 5mg POqHS * Plavix 75mg daily * Lasix 40mg daily * Crestor 5mg POqHS 5) Hypertension Assessment/Plan * Monitor vital signs * Cozaar 25mg daily * Lopressor 75mg daily 6) Heel ulcer Assessment/Plan * Patient's private quality analyst, Dr Kenney who he sees routinely for Darkin solution * Patient has called his quality analyst to reschedule appointment * Daily dressing changes 7) Peripheral Vascular Disease Assessment/Plan * 2 veins removed in his left lower extremity (10/2017 and 2014) 8) History of Gastritis Assessment/Plan * Pantoprazole 40mg dialy 9) History of Depression Assessment/Plan * Fluoxetine 20mg PO daily 10) Rash-->resolved Assessment/Plan * Completed Benadryl 25mg IV Q8 X3 doses * Completed Solumderol 40mg IV Q8H X3 doses * Mupricin ointment 11) Prophylaxis * Protonix 40mg PO daily * Xarelto 10mg PO daily * SCDs * PT eval and treat * Changed mind to subacute rehab eval for discharge planning Disposition: Patient is amenable to subacute rehab eval preference for [facility]. Pending neurointerventional evaluation given Head/Neck CT result. Discussed with neurology nurse practitioner.
--- NOTE | 2018-02-24 11:02 | CP.PCM.PN ---
Subjective - Date & Time of Evaluation Date of Evaluation: 02/24/18 Time of Evaluation: 10:59 - Subjective Subjective: Patient seen and examined at bedside. He states that he has been sleeping well and eating well. Does not offer any complaints at this time. States that his niece might come to visit him today. Awaiting authorization to subacute rehab. Objective - Vital Signs/Intake and Output Vital Signs (last 24 hours): Temp Pulse Resp BP Pulse Ox 97.8 F 98 H 20 120/74 98 02/24/18 07:00 02/24/18 07:00 02/24/18 07:00 02/24/18 07:00 02/24/18 07:00 - Medications Medications: Current Medications Acetaminophen (Tylenol 325mg Tab) 650 mg PO [facility] Last Admin: 02/23/18 21:22 Dose: 650 mg Clopidogrel Bisulfate (Plavix) 75 mg PO DAILY [facility] Last Admin: 02/23/18 10:44 Dose: 75 mg Fluoxetine HCl (Prozac) 20 mg PO DAILY [facility] Last Admin: 02/23/18 10:46 Dose: 20 mg Furosemide (Lasix) 40 mg PO DAILY [facility] Last Admin: 02/23/18 10:47 Dose: 40 mg Losartan Potassium (Cozaar) 25 mg PO DAILY [facility] Last Admin: 02/23/18 10:44 Dose: 25 mg Metoprolol Tartrate (Lopressor) 75 mg PO DAILY [facility] Last Admin: 02/23/18 10:47 Dose: 75 mg Mupirocin (Bactroban Ointment) 1 gm EXT DAILY [facility] Last Admin: 02/23/18 10:46 Dose: 1 applic Pantoprazole Sodium (Protonix Ec Tab) 40 mg PO DAILY [facility] Last Admin: 02/23/18 10:44 Dose: 40 mg Rivaroxaban (Xarelto) 10 mg PO DAILY [facility] Last Admin: 02/23/18 10:46 Dose: 10 mg Rosuvastatin Calcium (Crestor) 5 mg PO HS [facility] Last Admin: 02/23/18 21:24 Dose: 5 mg - Labs Labs: 02/24/18 08:07 02/24/18 08:07 PT 15.5 SECONDS (9.7-12.2) H 02/18/18 06:23 INR 1.4 02/18/18 06:23 APTT 45 SECONDS (21-34) H 02/11/18 17:20 - Constitutional Appears: Well, No Acute Distress - Head Exam Head Exam: ATRAUMATIC, NORMOCEPHALIC - Eye Exam Eye Exam: EOMI - ENT Exam ENT Exam: Mucous Membranes Moist - Respiratory Exam Respiratory Exam: Clear to Ausculation Bilateral, NORMAL BREATHING PATTERN. absent: Rales, Rhonchi, Wheezes - Cardiovascular Exam Cardiovascular Exam: REGULAR RHYTHM, +S1, +S2 Additional comments: AICD in place. Ecchymoses resolving. - GI/Abdominal Exam GI & Abdominal Exam: Soft, Normal Bowel Sounds. absent: Distended, Guarding, Rigid, Tenderness - Extremities Exam Extremities Exam: absent: Calf Tenderness, Pedal Edema Additional comments: Left heel ulcer covering in dressing. Pedal edema of left foot. - Neurological Exam Neurological Exam: Alert, Awake, Oriented x3 - Psychiatric Exam Psychiatric exam: Normal Mood
[2018-02-24] MEDS: Pantoprazole 40 mg EC Tab PO SCH (11:50)
--- NOTE | 2018-02-24 22:32 | CP.PCM.PN ---
Subjective - Date & Time of Evaluation Date of Evaluation: 02/24/18 Time of Evaluation: 16:10 - Subjective Subjective: Patient seen and evaluated More alert and less confused Denies chest pain and dyspnea Objective - Vital Signs/Intake and Output Vital Signs (last 24 hours): Temp Pulse Resp BP Pulse Ox 98 F 91 H 20 111/67 100 02/24/18 15:00 02/24/18 15:00 02/24/18 15:00 02/24/18 15:00 02/24/18 15:00 - Medications Medications: Current Medications Acetaminophen (Tylenol 325mg Tab) 650 mg PO [facility] Last Admin: 02/24/18 21:21 Dose: 650 mg Clopidogrel Bisulfate (Plavix) 75 mg PO DAILY [facility] Last Admin: 02/24/18 11:50 Dose: 75 mg Fluoxetine HCl (Prozac) 20 mg PO DAILY [facility] Last Admin: 02/24/18 11:50 Dose: 20 mg Furosemide (Lasix) 40 mg PO DAILY [facility] Last Admin: 02/24/18 11:49 Dose: 40 mg Losartan Potassium (Cozaar) 25 mg PO DAILY [facility] Last Admin: 02/24/18 11:50 Dose: Not Given Metoprolol Tartrate (Lopressor) 75 mg PO DAILY [facility] Last Admin: 02/24/18 11:50 Dose: Not Given Mupirocin (Bactroban Ointment) 1 gm EXT DAILY [facility] Last Admin: 02/24/18 11:48 Dose: 1 applic Pantoprazole Sodium (Protonix Ec Tab) 40 mg PO DAILY [facility] Last Admin: 02/24/18 11:50 Dose: 40 mg Rivaroxaban (Xarelto) 10 mg PO DAILY [facility] Last Admin: 02/24/18 11:50 Dose: 10 mg Rosuvastatin Calcium (Crestor) 5 mg PO [facility] Last Admin: 02/24/18 21:21 Dose: 5 mg - Labs Labs: 02/24/18 08:07 02/24/18 08:07 PT 15.5 SECONDS (9.7-12.2) H 02/18/18 06:23 INR 1.4 02/18/18 06:23 APTT 45 SECONDS (21-34) H 02/11/18 17:20
[2018-02-25 08:36] LABS: BASO # 0.1 K/uL (0.0-0.2); BASO % 1.1 % (0.0-2.0); EOS # 0.4 K/uL (0.0-0.7); EOS % 5.8 % (0.0-4.0); HEMOGLOBIN 15.5 g/dL (12.0-18.0); LYMPH # 0.6 K/uL (1.0-4.3); MEAN CELL VOLUME 97.2 fL (80.0-94.0); MEAN CORPUSCULAR HEMOGLOBIN 33.5 pg (27.0-31.0); MEAN CORPUSCULAR HGB CONC 34.5 g/dL (33.0-37.0); MEAN PLATELET VOLUME 8.2 fL (7.2-11.7); MONO # 0.8 K/uL (0.0-0.8); MONO % 12.3 % (0.0-10.0); NEUT % 71.8 % (50.0-75.0); NRBC % 0.1 % (0.0-2.0); PLATELET COUNT 237 K/uL (130-400); RBC 4.64 Mil/uL (4.40-5.90); RED CELL DISTRIBUTION WIDTH 14.7 % (11.5-14.5); WHITE BLOOD COUNT 6.9 K/uL (4.8-10.8)
[2018-02-25 08:58] LABS: ALB/GLOB RATIO 1.4 (1.0-2.1); ALBUMIN 4.2 g/dL (3.5-5.0); ALT/SGPT 47 U/L (21-72); AST/SGOT 48 U/L (17-59); BLOOD UREA NITROGEN 15 mg/dL (9-20); CALCIUM 8.9 mg/dl (8.6-10.4); GFR AFRICAN-AMERICAN > 60; GFR NON-AFRICAN AMERICAN > 60
[2018-02-25 10:02] LABS: BASOPHIL 1 % (0-2); EOSINOPHIL 7 % (0-4); LYMPHOCYTE 10 % (20-40); MONOCYTE 5 % (0-10); NEUTROPHIL 77 % (50-75); PLATELET ESTIMATE NORMAL (NORMAL); TOTAL CELLS COUNTED 100
--- NOTE | 2018-02-25 10:47 | CP.PCM.PN ---
Subjective - Date & Time of Evaluation Date of Evaluation: 02/25/18 Time of Evaluation: 10:44 - Subjective Subjective: Progress Note for Hospitalist service Patient seen and examined at bedside. He states he has been eating well, sleeping well. He is not confused and he states he is open to going to rehab facility prior to going home. Requests to have dressing on his left heel ulcer changed. He denies fevers, chills, headache, dizziness, lightheadness, chest pain, shortness of breath, abdominal pain, nausea, vomiting, diarrhea. Objective - Vital Signs/Intake and Output Vital Signs (last 24 hours): Temp Pulse Resp BP Pulse Ox 97.4 F L 93 H 20 154/77 H 98 02/25/18 07:00 02/25/18 07:00 02/25/18 07:00 02/25/18 07:00 02/25/18 07:00 - Medications Medications: Current Medications Acetaminophen (Tylenol 325mg Tab) 650 mg PO [facility] Last Admin: 02/24/18 21:21 Dose: 650 mg Clopidogrel Bisulfate (Plavix) 75 mg PO DAILY [facility] Last Admin: 02/24/18 11:50 Dose: 75 mg Fluoxetine HCl (Prozac) 20 mg PO DAILY [facility] Last Admin: 02/24/18 11:50 Dose: 20 mg Furosemide (Lasix) 40 mg PO DAILY [facility] Last Admin: 02/24/18 11:49 Dose: 40 mg Losartan Potassium (Cozaar) 25 mg PO DAILY [facility] Last Admin: 02/24/18 11:50 Dose: Not Given Metoprolol Tartrate (Lopressor) 75 mg PO DAILY [facility] Last Admin: 02/24/18 11:50 Dose: Not Given Mupirocin (Bactroban Ointment) 1 gm EXT DAILY [facility] Last Admin: 02/24/18 11:48 Dose: 1 applic Pantoprazole Sodium (Protonix Ec Tab) 40 mg PO DAILY [facility] Last Admin: 02/24/18 11:50 Dose: 40 mg Rivaroxaban (Xarelto) 10 mg PO DAILY [facility] Last Admin: 02/24/18 11:50 Dose: 10 mg Rosuvastatin Calcium (Crestor) 5 mg PO HS [facility] Last Admin: 02/24/18 21:21 Dose: 5 mg - Labs Labs: 02/25/18 08:24 02/25/18 08:24 PT 15.5 SECONDS (9.7-12.2) H 02/18/18 06:23 INR 1.4 02/18/18 06:23 APTT 45 SECONDS (21-34) H 02/11/18 17:20 - Constitutional Appears: Well, No Acute Distress - Head Exam Head Exam: ATRAUMATIC, NORMOCEPHALIC - Eye Exam Eye Exam: EOMI - ENT Exam ENT Exam: Mucous Membranes Moist - Neck Exam Neck Exam: Full ROM. absent: Tenderness Additional comments: Resolving erythema to his neck bilaterally, no hives present (+) 2cm mobile nodule at the angle of mandible on left - Respiratory Exam Respiratory Exam: Clear to Ausculation Bilateral, NORMAL BREATHING PATTERN. absent: Rales, Rhonchi, Wheezes, Respiratory Distress - Cardiovascular Exam Cardiovascular Exam: Irregular Rhythm, +S1, +S2. absent: Bradycardia, JVD Additional comments: AICD in place to left anterior chest wall no carotid bruit auscultated bilaterally - GI/Abdominal Exam GI & Abdominal Exam: Soft, Normal Bowel Sounds. absent: Distended, Firm, Guarding, Rigid, Tenderness - Extremities Exam Extremities Exam: Pedal Edema. absent: Calf Tenderness Additional comments: Pedal edema to left lower extremity Healing ulcer present on left medial foot with granulation tissue present. no purulent drainage noted. good distal pulses. mild edema to dorsal left foot. Right foot no edema or ulcers present. Good distal pulses. - Back Exam Back Exam: absent: vertebral tenderness - Neurological Exam Neurological Exam: Alert, Awake, Oriented x3 - Psychiatric Exam Psychiatric exam: Normal Affect, Normal Mood - Skin Additional comments: Resolving ecchymoses to left anterior chest wall and left forearm. Ecchymoses noted to left lower back and left buttock. Assessment and Plan - Assessment and Plan (Free Text) Plan: Assessment/Plan 1) Dyspnea * Cardiology (Dr. Vu) on case help appreciated * Monitor on telemetry * Pertinent positive: s/p TAVR (2014), Atrial fibrillation (on AC), Pacemaker , Smoking history * Pacemaker placed in 03/2015 - last interrogated was last week, reports his metal expediter Dr Byrd told him at that time there was an issue with his pacemaker and that it needs to be rechecked. Patient completed Holter with Dr. Byrd; No V-tachy noted per discussion. 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 Hartman) per request by metal expediter * CT head (02/22/18): no evidence of acute intracranial hemorrhage. Mild to moderate chronic white matter ischemic changes, bilateral basal nuclei and brainstem, mild to moderate generalized volume loss. * CT head and neck (02/22/18)---> significant stenosis right cartoid bifurcation origin right internal cartoid artery estimated between 85-90%, also significant stenosis of the left carotid bifurcation origin left interval carotid artery estimated at approximately 45%. Significant on stenosis proximal intradural segment distal left vertebral artery at 70%. intracerebral arteries are patent though are calcified plaque changes along the cavernous segments. Discussed with nurse practitioner on neurology service, she will f/u with neuro- interventionalist at this time for recommendations/intervention. * Neurointerventionalist Dr. Hughes ? 3) Atrial Fibrillation * CHADS: 3 * Patient is on Xarelto 10mg PO daily * Metoprolol succinate 75mg PO daily * Echo 02/13 - technically difficult and limited study, LV severely dialted, mild asymmetric left ventricular hypertrophy, left ventricle systolic function mildly impaired, EF 40%, global hypokinesis of left ventricle, left ventricle diastolic function is normal (see full report) 4) History of Aortic Stenosis s/p TAVR 2014 with low Ejection Fraction Coronary Artery Disease + Stent History of Pacemaker Cardiomyopathy * monitor on telemetry * Patient's outpatient metal expediter, Dr. Hawk Byrd * Echo 02/13 - technically difficult and limited study, LV severely dialted, mild asymmetric left ventricular hypertrophy, left ventricle systolic function mildly impaired, EF 40%, global hypokinesis of left ventricle, left ventricle diastolic function is normal (see full report) * MUGA 02/14 - EF 29% * Patient will need AICD given low Ejection Fraction noted by echo and MUGA * Patient had placement of AICD at [place] over the weekend * Patient had noted ecchymoses over the site with tenderness to palpation * held Xarelto secondary to extensive ecchymoses by cardio-->recommend to restart 02/20/18 * BNP 1940 * Measure daily weights, Is/Os * Continue home medications * Lopressor 75mg daily * Crestor 5mg POqHS * Plavix 75mg daily * Lasix 40mg daily * Crestor 5mg POqHS 5) Hypertension * Monitor vital signs * Cozaar 25mg daily * Lopressor 75mg daily 6) Heel ulcer Assessment/Plan * Patient's private cashier receptionist, Dr Kenney who he sees routinely for Darkin solution * Patient has called his cashier receptionist to reschedule appointment * Daily dressing changes 7) Peripheral Vascular Disease Assessment/Plan * 2 veins removed in his left lower extremity (10/2017 and 2014) 8) History of Gastritis Assessment/Plan * Pantoprazole 40mg dialy 9) History of Depression Assessment/Plan * Fluoxetine 20mg PO daily 10) Rash-->resolved Assessment/Plan * Completed Benadryl 25mg IV Q8 X3 doses * Completed Solumderol 40mg IV Q8H X3 doses * Mupricin ointment 11) Prophylaxis * Protonix 40mg PO daily * Xarelto 10mg PO daily * SCDs * PT eval and treat * Changed mind to subacute rehab eval for discharge planning * Awaiting authorization to [facility]
[2018-02-25] MEDS: Pantoprazole 40 mg EC Tab PO SCH (10:50)
--- NOTE | 2018-02-25 11:08 | CP.PCM.CON ---
History of Present Illness - History of Present Illness History of Present Illness: NEURO-INTERVENTIONAL CONSULTATION The patient is an 82 year old male with a PMG sig for atrial fibrillation on Xarelto and Plavix. The patient also has a PPMm and is s/p TAVR for severe aortic stenosis. The patient came into the hospital with an acute confusional episode. When I spoke to him today it was completely resolved, he is alert and oriented x 3 and in good spirits. CTA showed 85% stenosis of the proximal right ICA and 70 % stenosis of the left intradural vert (slightly smaller right vert present). The patient does not by history have a symptomatic carotid artery. He denies hemispheric or retinal symptoms such as unilateral numbness or weaknes, difficulty talking or visual obfuscations (denies "a curtain" coming over one or both of his eyes). Past Patient History - Past Medical History & Family History Past Medical History?: Yes - Past Social History Smoking Status: Former Smoker - CARDIAC Hx Atrial Fibrillation: Yes Hx Hypertension: Yes Hx Pacemaker: Yes ([employer]) - NEUROLOGICAL Hx Paralysis: No - HEMATOLOGICAL/ONCOLOGICAL Hx Blood Transfusions: No - MUSCULOSKELETAL/RHEUMATOLOGICAL Hx Arthritis: Yes - PSYCHIATRIC Hx Substance Use: No - SURGICAL HISTORY Hx Surgeries: Yes Other/Comment: pacemaker, valve replacement - ANESTHESIA Hx Anesthesia: Yes Hx Anesthesia Reactions: No Hx Malignant Hyperthermia: No Meds Home Medications: Home Medication List Medication Instructions Recorded Confirmed Type Acetaminophen [Tylenol 325mg tab] 650 mg PO HS tab 02/21/18 Rx Metoprolol Succinate XL [Toprol XL] 50 mg PO DAILY #30 tab 02/21/18 Rx Mupirocin 2% Ointment [Bactroban 1 gm EXT DAILY #1 tube 02/21/18 Rx Ointment] Allergies/Adverse Reactions: Allergies Allergy/AdvReac Type Severity Reaction Status Date / Time penicillin V Allergy Severe RASH/HIVES Verified 02/09/18 11:45 - Medications Medications: Current Medications Acetaminophen (Tylenol 325mg Tab) 650 mg PO HS [facility] Last Admin: 02/24/18 21:21 Dose: 650 mg Clopidogrel Bisulfate (Plavix) 75 mg PO DAILY [facility] Last Admin: 02/24/18 11:50 Dose: 75 mg Fluoxetine HCl (Prozac) 20 mg PO DAILY [facility] Last Admin: 02/24/18 11:50 Dose: 20 mg Furosemide (Lasix) 40 mg PO DAILY [facility] Last Admin: 02/24/18 11:49 Dose: 40 mg Losartan Potassium (Cozaar) 25 mg PO DAILY [facility] Last Admin: 02/24/18 11:50 Dose: Not Given Metoprolol Tartrate (Lopressor) 75 mg PO DAILY [facility] Last Admin: 02/24/18 11:50 Dose: Not Given Mupirocin (Bactroban Ointment) 1 gm EXT DAILY [facility] Last Admin: 02/24/18 11:48 Dose: 1 applic Pantoprazole Sodium (Protonix Ec Tab) 40 mg PO DAILY [facility] Last Admin: 02/24/18 11:50 Dose: 40 mg Rivaroxaban (Xarelto) 10 mg PO DAILY [facility] Last Admin: 02/24/18 11:50 Dose: 10 mg Rosuvastatin Calcium (Crestor) 5 mg PO HS [facility] Last Admin: 02/24/18 21:21 Dose: 5 mg Physical Exam - Additional Findings Additional findings: NEURO EXAM PERRL, EOMI Alert and Oriented x3 Knows heelvia is in [facility], that it is 2017 and that the president is Trump No facial assymetry No dysarthria No aphasia No drift, +limitation of movement in right shoulder which he tells me is chronic Moves all extremities Results - Vital Signs Recent Vital Signs: Last Vital Signs Temp 97.4 F L 02/25/18 07:00 Pulse 93 H 02/25/18 07:00 Resp 20 02/25/18 07:00 BP 154/77 H 02/25/18 07:00 Pulse Ox 98 02/25/18 07:00 - Labs Result Diagrams: 02/25/18 08:24 02/25/18 08:24 Labs: Laboratory Results - last 24 hr 02/25/18 02/25/18 08:24 08:24 WBC 6.9 RBC 4.64 Hgb 15.5 Hct 45.1 MCV 97.2 H MCH 33.5 H MCHC 34.5 RDW 14.7 H Plt Count 237 MPV 8.2 Neut % (Auto) 71.8 Lymph % (Auto) 9.0 L Tillman % (Auto) 12.3 H Eos % (Auto) 5.8 H Baso % (Auto) 1.1 Neut # (Auto) 5.0 Lymph # (Auto) 0.6 L Tillman # (Auto) 0.8 Eos # (Auto) 0.4 Baso # (Auto) 0.1 Neutrophils % (Manual) 77 H Lymphocytes % (Manual) 10 L Monocytes % (Manual) 5 Eosinophils % (Manual) 7 H Basophils % (Manual) 1 Platelet Estimate Normal RBC Morphology Normal Sodium 139 Potassium 4.0 Chloride 98 Carbon Dioxide 31 H Anion Gap 14 BUN 15 Creatinine 0.7 L Est GFR ( Amer) > 60 Est GFR (Non-Af Amer) > 60 Random Glucose 112 H Calcium 8.9 Phosphorus 3.4 Magnesium 1.7 Total Bilirubin 1.6 H AST 48 ALT 47 Alkaline Phosphatase 126 Total Protein 7.2 Albumin 4.2 Globulin 3.1 Albumin/Globulin Ratio 1.4 Assessment & Plan - Assessment and Plan (Free Text) Assessment: 82 year old male with asymptomatic carotid and vertebral stenosis. Confusional state unlikely to be due to stenoses. Recent steroid use could be a cause. Global confusional state is less consistent with symptomatic carotid and vertebral disease; however this cannot be completely excluded.. Plan: 1. No current indication for carotid revascularization 2. Optimize cardiac status, symptoms could be due to cardiac related cerbral perfusion failure. jayme Yousif the history given is less consistent with this type of etiology. However he should still be monitored, and close follow up is warranted. 3. If becomes symptomatic would then need to intervene. 4. Continue current medications as per Neurology 5. Please ensure follow up with me as an outpatient within the next 1-3 weeks. Aleksey Hughes MD [address] [facility] [address] [place] [id number] - Date & Time Date: 02/25/18 Time: 11:07
--- NOTE | 2018-02-25 14:21 | CP.PCM.PN ---
<Courtney Guerrero - Last Filed: 02/25/18 16:40> Subjective - Date & Time of Evaluation Date of Evaluation: 02/25/18 Time of Evaluation: 13:00 - Subjective Subjective: PGY2- Progress Note Patient seen and examined at bedside and in no acute distress. Patient knows he was confused the other day and does not feel confused today. Patient knows the date, day of the week, location, and city we are in. Patient denies any chest pain, abdominal pain, nausea, vomiting, constipation, or diarrhea. Objective - Vital Signs/Intake and Output Vital Signs (last 24 hours): Temp Pulse Resp BP Pulse Ox 97.4 F L 93 H 20 130/73 98 02/25/18 07:00 02/25/18 07:00 02/25/18 07:00 02/25/18 10:49 02/25/18 07:00 - Medications Medications: Current Medications Acetaminophen (Tylenol 325mg Tab) 650 mg PO [facility] Last Admin: 02/24/18 21:21 Dose: 650 mg Clopidogrel Bisulfate (Plavix) 75 mg PO DAILY [facility] Last Admin: 02/25/18 10:49 Dose: 75 mg Fluoxetine HCl (Prozac) 20 mg PO DAILY [facility] Last Admin: 02/25/18 10:48 Dose: 20 mg Furosemide (Lasix) 40 mg PO DAILY [facility] Last Admin: 02/25/18 10:49 Dose: 40 mg Losartan Potassium (Cozaar) 25 mg PO DAILY [facility] Last Admin: 02/25/18 10:49 Dose: 25 mg Metoprolol Tartrate (Lopressor) 75 mg PO DAILY [facility] Last Admin: 02/25/18 10:48 Dose: 75 mg Mupirocin (Bactroban Ointment) 1 gm EXT DAILY [facility] Last Admin: 02/25/18 10:50 Dose: 1 applic Pantoprazole Sodium (Protonix Ec Tab) 40 mg PO DAILY [facility] Last Admin: 02/25/18 10:50 Dose: 40 mg Rivaroxaban (Xarelto) 10 mg PO DAILY [facility] Last Admin: 02/25/18 10:48 Dose: 10 mg Rosuvastatin Calcium (Crestor) 5 mg PO [facility] Last Admin: 02/24/18 21:21 Dose: 5 mg - Labs Labs: 02/25/18 08:24 02/25/18 08:24 PT 15.5 SECONDS (9.7-12.2) H 02/18/18 06:23 INR 1.4 02/18/18 06:23 APTT 45 SECONDS (21-34) H 02/11/18 17:20 - Additional Findings Additional findings: - Constitutional Appears: Non-toxic, No Acute Distress - Head Exam Head Exam: ATRAUMATIC, NORMAL INSPECTION, NORMOCEPHALIC - Eye Exam Eye Exam: EOMI, Normal appearance - ENT Exam ENT Exam: Mucous Membranes Moist - Neck Exam Neck Exam: Full ROM - Respiratory Exam Respiratory Exam: Clear to Ausculation Bilateral, NORMAL BREATHING PATTERN - Cardiovascular Exam Cardiovascular Exam: Irregular Rhythm, RRR, +S1, +S2 - GI/Abdominal Exam GI & Abdominal Exam: Soft, Normal Bowel Sounds. absent: Tenderness - Extremities Exam Extremities Exam: Normal Inspection Additional comments: venous ulcer measurements are 5 x 2.3 x 0.5 cm. on left left ankle edema C/D/I dressing - Neurological Exam Neurological Exam: Alert, Awake, Oriented x3 - Psychiatric Exam Psychiatric exam: Normal Affect, Normal Mood - Skin Skin Exam: Intact, Warm. absent: Normal Color Additional comments: ecchymosis resolving over left side of chest wall down into left arm to elbow and left flank Assessment and Plan - Assessment and Plan (Free Text) Assessment: Delirium, resolved suspected 2/2 steroid use Neurology consulted, Dr. Hartman CT head (02/22/18): no evidence of acute intracranial hemorrhage. Mild to moderate chronic white matter ischemic changes, bilateral basal nuclei and brainstem, mild to moderate generalized volume loss. 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 Significant on stenosis proximal intradural segment distal left vertebral artery at 70%. intracerebral arteries are patent though are calcified plaque changes along the cavernous segments. As per Dr. Magana, neurointerventionalist confusion unlikely due to stenoses. no current indication for carotid revascularization. History of Aortic Stenosis s/p TAVR 2014 Coronary Artery Disease + Stent History of Pacemaker Cardiomyopathy Assessment/Plan * AICD placed at [place] on 02/15/18 * monitor on telemetry * Patient's outpatient surgical services assistant, Dr. Hawk Byrd, does not come here---> will f/u holter (see notes above) * BNP 1940 * Measure daily weights, Is/Os Imaging: * Echo 02/13 - technically difficult and limited study, LV severely dialted, mild asymmetric left ventricular hypertrophy, left ventricle systolic function mildly impaired, EF 40%, global hypokinesis of left ventricle, left ventricle diastolic function is normal (see full report) * MUGA 02/14 - EF 29% * Continue home medications * Lopressor 75mg daily * Crestor 5mg POqHS * Lasix 40mg po daily * Plavix 75mg po daily * Xarelto restarted, ecchymosis resolving * Patient needs to work with PT Atrial Fibrillation Assessment/Plan * CHADS: 3 * Xarelto 10mg PO daily restarted due to ecchymosis * Metoprolol Tartrate 75mg PO daily Dispo: Patient stable for [facility] as per Dr. Vu, patient will need to follow up with Dr. Byrd as an outpatient within [address] are dissolvable, no removal required <Jose L Vu - Last Filed: 02/25/18 22:41> Objective - Vital Signs/Intake and Output Vital Signs (last 24 hours): Temp Pulse Resp BP Pulse Ox 97.4 F L 87 20 104/52 L 97 02/25/18 15:30 02/25/18 15:30 02/25/18 15:30 02/25/18 15:30 02/25/18 15:30 Intake and Output: 02/25/18 02/26/18 18:59 06:59 Intake Total 300 Balance 300 - Medications Medications: Current Medications Acetaminophen (Tylenol 325mg Tab) 650 mg PO [facility] Last Admin: 02/25/18 22:09 Dose: 650 mg Clopidogrel Bisulfate (Plavix) 75 mg PO DAILY [facility] Last Admin: 02/25/18 10:49 Dose: 75 mg Fluoxetine HCl (Prozac) 20 mg PO DAILY [facility] Last Admin: 02/25/18 10:48 Dose: 20 mg Furosemide (Lasix) 40 mg PO DAILY [facility] Last Admin: 02/25/18 10:49 Dose: 40 mg Losartan Potassium (Cozaar) 25 mg PO DAILY [facility] Last Admin: 02/25/18 10:49 Dose: 25 mg Metoprolol Succinate (Toprol Xl) 75 mg PO DAILY [facility] Metoprolol Tartrate (Lopressor) 75 mg PO DAILY [facility] Last Admin: 02/25/18 10:48 Dose: 75 mg Mupirocin (Bactroban Ointment) 1 gm EXT DAILY [facility] Last Admin: 02/25/18 10:50 Dose: 1 applic Pantoprazole Sodium (Protonix Ec Tab) 40 mg PO DAILY [facility] Last Admin: 02/25/18 10:50 Dose: 40 mg Rivaroxaban (Xarelto) 10 mg PO DAILY [facility] Last Admin: 02/25/18 10:48 Dose: 10 mg Rosuvastatin Calcium (Crestor) 5 mg PO HS [facility] Last Admin: 02/25/18 22:06 Dose: 5 mg - Labs Labs: 02/25/18 08:24 02/25/18 08:24 PT 15.5 SECONDS (9.7-12.2) H 02/18/18 06:23 INR 1.4 02/18/18 06:23 APTT 45 SECONDS (21-34) H 02/11/18 17:20 Assessment and Plan - Assessment and Plan (Free Text) Assessment: Patient seen and evaluated personally by me. Plan of care d/w the clinical medical assistant and as documented
--- NOTE | 2018-02-25 16:18 | VASCLAB ---
PROCEDURE: HISTORY: Carotid artery stenosis COMPARISON: None available. TECHNIQUE: Grayscale and duplex Doppler evaluation of the cervical carotid and vertebral arteries were performed. The common carotid, carotid bifurcations and cervical Internal Carotid Artery (ICA) and proximal External Carotid Artery (ECA) were evaluated. The vertebral arteries were evaluated for gross patency and flow direction. Report prepared by Jj Loo, BS, RVT FINDINGS: RIGHT CAROTID ARTERIES: 1. Common Carotid Artery: Calcific plaque formation of the right common carotid artery. Maximum Peak Systolic velocity: 93 cm/sec: End-diastolic velocity 14 cm/sec. 2. Carotid Bifurcation: Calcific plaque formation. Maximum Peak Systolic velocity: 73 cm/sec: End-diastolic velocity 9 cm/sec. 3. Internal Carotid Artery: Plaque description: Calcific 3.1. Proximal Segment: Peak systolic velocity 87 cm/sec: End-diastolic velocity 20 cm/sec - % stenosis 0-15% 3.2. Middle Segment: Peak systolic velocity 116 cm/sec: End-diastolic velocity 24 cm/sec - % stenosis 0-15% 3.3. Distal Segment: Peak systolic velocity 100 cm/sec: End-diastolic velocity 23 cm/sec - % stenosis 0-15% 4. External Carotid Artery: Calcific plaque formation. Peak systolic velocity 96 cm/sec 5. ICA/CCA Ratio: 1.7 LEFT CAROTID ARTERIES: 1. Common Carotid Artery: Calcific plaque. Maximum Peak Systolic velocity: 142 cm/sec: End-diastolic velocity 22 cm/sec. 2. Carotid Bifurcation: Calcific plaque formation. Maximum Peak Systolic velocity: 70 cm/sec: End-diastolic velocity 13 cm/sec. 3. Internal Carotid Artery: Plaque description: Calcific 3.1. Proximal Segment: Peak systolic velocity 90 cm/sec: End-diastolic velocity 20 cm/sec - % stenosis 0-15% 3.2. Middle Segment: Peak systolic velocity 101 cm/sec: End-diastolic velocity 22 cm/sec - % stenosis 0-15% 3.3. Distal Segment: Peak systolic velocity 96 cm/sec: End-diastolic velocity 19 cm/sec - % stenosis 0-15% 4. External Carotid Artery: Calcific plaque. Peak systolic velocity 84 cm/sec 5. ICA/CCA Ratio: 1.7 VERTEBRAL ARTERIES: 1. Right Vertebral Artery: The right vertebral artery flow direction is antegrade. 2. Left Vertebral Artery: The left vertebral artery flow direction is antegrade. OTHER FINDINGS: 1. Right Brachial Blood pressure: 110 mmHg. 2. Left Brachial Blood pressure: IV line IMPRESSION: RIGHT: Duplex scan does not suggest hemodynamically significant stenosis of the right extracranial carotid arteries. LEFT: Duplex scan does not suggest hemodynamically significant stenosis of the left extracranial carotid arteries.
[2018-02-26 07:30] LABS: ALB/GLOB RATIO 1.3 (1.0-2.1); ALBUMIN 3.8 g/dL (3.5-5.0); ALT/SGPT 44 U/L (21-72); AST/SGOT 43 U/L (17-59); BLOOD UREA NITROGEN 12 mg/dL (9-20); CALCIUM 8.7 mg/dl (8.6-10.4); GFR AFRICAN-AMERICAN > 60; GFR NON-AFRICAN AMERICAN > 60
[2018-02-26 07:33] LABS: BASO # 0.1 K/uL (0.0-0.2); BASO % 1.3 % (0.0-2.0); EOS # 0.4 K/uL (0.0-0.7); EOS % 7.9 % (0.0-4.0); HEMOGLOBIN 14.8 g/dL (12.0-18.0); LYMPH # 0.7 K/uL (1.0-4.3); LYMPH % 13.1 % (20.0-40.0); MEAN CELL VOLUME 96.5 fL (80.0-94.0); MEAN CORPUSCULAR HEMOGLOBIN 33.7 pg (27.0-31.0); MEAN CORPUSCULAR HGB CONC 34.9 g/dL (33.0-37.0); MEAN PLATELET VOLUME 8.6 fL (7.2-11.7); MONO % 16.8 % (0.0-10.0); NEUT # 3.5 K/uL (1.8-7.0); NEUT % 60.9 % (50.0-75.0); NRBC % 0.1 % (0.0-2.0); RBC 4.41 Mil/uL (4.40-5.90); RED CELL DISTRIBUTION WIDTH 14.7 % (11.5-14.5); WHITE BLOOD COUNT 5.7 K/uL (4.8-10.8)
[2018-02-26] MEDS: Metoprolol Succinate 25 mg XL Tab PO SCH (10:55)
[2018-02-26] MEDS: Pantoprazole 40 mg EC Tab PO SCH (10:57)
--- NOTE | 2018-02-26 13:20 | CP.PCM.PN ---
Subjective - Date & Time of Evaluation Date of Evaluation: 02/26/18 Time of Evaluation: 13:19 - Subjective Subjective: Progress Note for Hospitalist service Patient seen and examined at bedside. He states he has been eating and sleeping well. He is eager to leave the hospital. He denies fevers, chills, chest pain, shortness of breath, headaches, dizziness, abdominal pain, nausea, vomiting, diarrhea. States his left heel ulcer has improved in appearance. Objective - Vital Signs/Intake and Output Vital Signs (last 24 hours): Temp Pulse Resp BP Pulse Ox 97.4 F L 68 20 107/54 L 98 02/26/18 07:35 02/26/18 10:33 02/26/18 07:35 02/26/18 11:30 02/26/18 07:35 - Medications Medications: Current Medications Acetaminophen (Tylenol 325mg Tab) 650 mg PO [facility] Last Admin: 02/25/18 22:09 Dose: 650 mg Clopidogrel Bisulfate (Plavix) 75 mg PO DAILY [facility] Last Admin: 02/26/18 10:56 Dose: 75 mg Fluoxetine HCl (Prozac) 20 mg PO DAILY [facility] Last Admin: 02/26/18 10:55 Dose: 20 mg Furosemide (Lasix) 40 mg PO DAILY [facility] Last Admin: 02/26/18 10:56 Dose: 40 mg Losartan Potassium (Cozaar) 25 mg PO DAILY [facility] Last Admin: 02/26/18 10:56 Dose: 25 mg Metoprolol Succinate (Toprol Xl) 75 mg PO DAILY [facility] Last Admin: 02/26/18 10:55 Dose: Not Given Metoprolol Tartrate (Lopressor) 75 mg PO DAILY [facility] Last Admin: 02/26/18 11:30 Dose: Not Given Mupirocin (Bactroban Ointment) 1 gm EXT DAILY [facility] Last Admin: 02/26/18 10:57 Dose: 1 applic Pantoprazole Sodium (Protonix Ec Tab) 40 mg PO DAILY [facility] Last Admin: 02/26/18 10:57 Dose: 40 mg Rivaroxaban (Xarelto) 10 mg PO DAILY [facility] Last Admin: 02/26/18 10:54 Dose: 10 mg Rosuvastatin Calcium (Crestor) 5 mg PO [facility] Last Admin: 02/25/18 22:06 Dose: 5 mg - Labs Labs: 02/26/18 06:39 02/26/18 06:39 PT 15.5 SECONDS (9.7-12.2) H 02/18/18 06:23 INR 1.4 02/18/18 06:23 APTT 45 SECONDS (21-34) H 02/11/18 17:20 - Constitutional Appears: Well, No Acute Distress - Head Exam Head Exam: ATRAUMATIC, NORMOCEPHALIC - Eye Exam Eye Exam: EOMI - ENT Exam ENT Exam: Mucous Membranes Moist - Neck Exam Additional comments: No urticaria or hives noted to neck - Cardiovascular Exam Cardiovascular Exam: Irregular Rhythm, +S1, +S2 Additional comments: AICD in place on left anterior chest - ecchymoses resolving on chest wall and left forearm. Mild ecchymoses also noted to left low back region. - GI/Abdominal Exam GI & Abdominal Exam: Soft, Normal Bowel Sounds. absent: Distended, Firm, Guarding, Rigid, Tenderness - Extremities Exam Extremities Exam: Pedal Edema. absent: Calf Tenderness Additional comments: Mild pedal edema to left foot. Left medial heel ulcer with granulation tissue present. 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 mobile circular nodules at angle of mandible on left Assessment and Plan - Assessment and Plan (Free Text) Plan: Assessment/Plan 1) Dyspnea, resolved * Cardiology (Dr. uV) on case help appreciated * Monitor on telemetry * Pertinent positive: s/p TAVR (2014), Atrial fibrillation (on AC), Pacemaker , Smoking history * Pacemaker placed in 03/2015 - last interrogated was last week, reports his cardiac care unit nurse Dr Byrd told him at that time there was an issue with his pacemaker and that it needs to be rechecked. Patient completed Holter with Dr. Byrd; No V-tachy noted per discussion. * AICD placed on 02/15/18 * on Xarelto * D-dimer: negative * Elevated probnp * Troponin X3 negative 2 ) Delirium-->Resolved Possible vascular dementia Cartoid Stenosis Right * suspect secondary to steroid use * Neurology consult (Dr. Hartman) per request by cardiac care unit nurse * CT head (02/22/18): no evidence of acute intracranial hemorrhage. Mild to moderate chronic white matter ischemic changes, bilateral basal nuclei and brainstem, mild to moderate generalized volume loss. * CT head and neck (02/22/18)---> significant stenosis right cartoid bifurcation origin right internal cartoid artery estimated between 85-90%, also significant stenosis of the left carotid bifurcation origin left interval carotid artery estimated at approximately 45%. Significant on stenosis proximal intradural segment distal left vertebral artery at 70%. intracerebral arteries are patent though are calcified plaque changes along the cavernous segments. Discussed with nurse practitioner on neurology service, she will f/u with neuro- interventionalist at this time for recommendations/intervention. * 02/25/[address] Hughes, no surgical intervention warranted at this time. 3) Atrial Fibrillation * CHADS: 3 * Patient is on Xarelto 10mg PO daily * Metoprolol succinate 75mg PO daily * Echo 02/13 - technically difficult and limited study, LV severely dialted, mild asymmetric left ventricular hypertrophy, left ventricle systolic function mildly impaired, EF 40%, global hypokinesis of left ventricle, left ventricle diastolic function is normal (see full report) 4) History of Aortic Stenosis s/p TAVR 2014 with low Ejection Fraction Coronary Artery Disease + Stent History of Pacemaker Cardiomyopathy * monitor on telemetry * Patient's outpatient cardiac care unit nurse, Dr. Hawk Byrd * Echo 02/13 - technically difficult and limited study, LV severely dialted, mild asymmetric left ventricular hypertrophy, left ventricle systolic function mildly impaired, EF 40%, global hypokinesis of left ventricle, left ventricle diastolic function is normal (see full report) * MUGA 02/14 - EF 29% * Patient will need AICD given low Ejection Fraction noted by echo and MUGA * Patient had placement of AICD at [place] over the weekend * Patient had noted ecchymoses over the site with tenderness to palpation * held Xarelto secondary to extensive ecchymoses by cardio-->recommend to restart 02/20/18 * BNP 1940 * Measure daily weights, Is/Os * Continue home medications * Lopressor 75mg daily * Crestor 5mg POqHS * Plavix 75mg daily * Lasix 40mg daily * Crestor 5mg POqHS 5) Hypertension * Monitor vital signs * Cozaar 25mg daily * Lopressor 75mg daily 6) Heel ulcer Assessment/Plan * Patient's private shovel handle assembler, Dr Kenney who he sees routinely for Darkin solution * Patient has called his shovel handle assembler to reschedule appointment * Daily dressing changes 7) Peripheral Vascular Disease Assessment/Plan * 2 veins removed in his left lower extremity (10/2017 and 2014) 8) History of Gastritis Assessment/Plan * Pantoprazole 40mg dialy 9) History of Depression Assessment/Plan * Fluoxetine 20mg PO daily 10) Rash-->resolved Assessment/Plan * Completed Benadryl 25mg IV Q8 X3 doses * Completed Solumderol 40mg IV Q8H X3 doses * Mupricin ointment 11) Prophylaxis * Protonix 40mg PO daily * Xarelto 10mg PO daily * SCDs * PT eval and treat [facility]: [facility]
--- NOTE | 2018-02-26 23:01 | CP.PCM.PN ---
Subjective - Date & Time of Evaluation Date of Evaluation: 02/26/18 Time of Evaluation: 20:10 - Subjective Subjective: Patient seen and evaluated Denies chest pain and dyspnea Objective - Vital Signs/Intake and Output Vital Signs (last 24 hours): Temp Pulse Resp BP Pulse Ox 97.3 F L 92 H 20 124/78 96 02/26/18 16:00 02/26/18 16:00 02/26/18 16:00 02/26/18 16:00 02/26/18 16:00 Intake and Output: 02/26/18 02/27/18 18:59 06:59 Intake Total 350 Balance 350 - Medications Medications: Current Medications Acetaminophen (Tylenol 325mg Tab) 650 mg PO HS PENDING SALE TO [facility] Last Admin: 02/26/18 21:32 Dose: 650 mg Clopidogrel Bisulfate (Plavix) 75 mg PO DAILY PENDING SALE TO [facility] Last Admin: 02/26/18 10:56 Dose: 75 mg Fluoxetine HCl (Prozac) 20 mg PO DAILY PENDING SALE TO [facility] Last Admin: 02/26/18 10:55 Dose: 20 mg Furosemide (Lasix) 40 mg PO DAILY PENDING SALE TO [facility] Last Admin: 02/26/18 10:56 Dose: 40 mg Losartan Potassium (Cozaar) 25 mg PO DAILY PENDING SALE TO [facility] Last Admin: 02/26/18 10:56 Dose: 25 mg Metoprolol Succinate (Toprol Xl) 75 mg PO DAILY PENDING SALE TO [facility] Last Admin: 02/26/18 10:55 Dose: Not Given Mupirocin (Bactroban Ointment) 1 gm EXT DAILY PENDING SALE TO [facility] Last Admin: 02/26/18 10:57 Dose: 1 applic Pantoprazole Sodium (Protonix Ec Tab) 40 mg PO DAILY PENDING SALE TO [facility] Last Admin: 02/26/18 10:57 Dose: 40 mg Rivaroxaban (Xarelto) 10 mg PO DAILY PENDING SALE TO [facility] Last Admin: 02/26/18 10:54 Dose: 10 mg Rosuvastatin Calcium (Crestor) 5 mg PO HS PENDING SALE TO [facility] Last Admin: 02/26/18 21:33 Dose: 5 mg - Labs Labs: 02/26/18 06:39 02/26/18 06:39 PT 15.5 SECONDS (9.7-12.2) H 02/18/18 06:23 INR 1.4 02/18/18 06:23 APTT 45 SECONDS (21-34) H 02/11/18 17:20
[2018-02-27 08:49] LABS: BASO # 0.1 K/uL (0.0-0.2); BASO % 1.1 % (0.0-2.0); EOS # 0.4 K/uL (0.0-0.7); EOS % 6.6 % (0.0-4.0); HEMOGLOBIN 15.4 g/dL (12.0-18.0); LYMPH # 0.6 K/uL (1.0-4.3); LYMPH % 11.4 % (20.0-40.0); MEAN CELL VOLUME 97.3 fL (80.0-94.0); MEAN CORPUSCULAR HEMOGLOBIN 33.7 pg (27.0-31.0); MEAN CORPUSCULAR HGB CONC 34.7 g/dL (33.0-37.0); MEAN PLATELET VOLUME 8.1 fL (7.2-11.7); MONO # 0.8 K/uL (0.0-0.8); MONO % 14.2 % (0.0-10.0); NEUT # 3.7 K/uL (1.8-7.0); NEUT % 66.7 % (50.0-75.0); NRBC % 0.1 % (0.0-2.0); RBC 4.56 Mil/uL (4.40-5.90); RED CELL DISTRIBUTION WIDTH 15.2 % (11.5-14.5); WHITE BLOOD COUNT 5.5 K/uL (4.8-10.8)
[2018-02-27 09:16] LABS: ALB/GLOB RATIO 1.3 (1.0-2.1); ALBUMIN 3.9 g/dL (3.5-5.0); ALT/SGPT 39 U/L (21-72); AST/SGOT 33 U/L (17-59); BLOOD UREA NITROGEN 13 mg/dL (9-20); CALCIUM 8.7 mg/dl (8.6-10.4); GFR AFRICAN-AMERICAN > 60; GFR NON-AFRICAN AMERICAN > 60
--- NOTE | 2018-02-27 10:07 | CP.PCM.PCO ---
Physician Communication Note - Physician Communication Note Physician Communication Note: Please see above
[2018-02-27] MEDS: Pantoprazole 40 mg EC Tab PO SCH (10:30)
[2018-02-27] MEDS: Metoprolol Succinate 25 mg XL Tab PO SCH (10:32)
--- NOTE | 2018-02-27 11:00 | CP.PCM.DIS ---
Provider - Provider Date of Admission: 02/11/18 18:10 Attending physician: Yeyo Negrete MD Primary care physician: Dr. Zuniga Consults: Particle Board Supervisor: Horace Neuro: Minnie Time Spent in preparation of Discharge (in minutes): 38 Hospital Course - Lab Results Lab Results: Most Recent Lab Values WBC 5.5 K/uL (4.8-10.8) 02/27/18 08:35 RBC 4.56 Mil/uL (4.40-5.90) 02/27/18 08:35 Hgb 15.4 g/dL (12.0-18.0) 02/27/18 08:35 Hct 44.4 % (35.0-51.0) 02/27/18 08:35 MCV 97.3 fL (80.0-94.0) H 02/27/18 08:35 MCH 33.7 pg (27.0-31.0) H 02/27/18 08:35 MCHC 34.7 g/dL (33.0-37.0) 02/27/18 08:35 RDW 15.2 % (11.5-14.5) H 02/27/18 08:35 Plt Count 237 K/uL (130-400) 02/27/18 08:35 MPV 8.1 fL (7.2-11.7) 02/27/18 08:35 Neut % (Auto) 66.7 % (50.0-75.0) 02/27/18 08:35 Lymph % (Auto) 11.4 % (20.0-40.0) L 02/27/18 08:35 [place] % (Auto) 14.2 % (0.0-10.0) H 02/27/18 08:35 Eos % (Auto) 6.6 % (0.0-4.0) H 02/27/18 08:35 Baso % (Auto) 1.1 % (0.0-2.0) 02/27/18 08:35 Neut # (Auto) 3.7 K/uL (1.8-7.0) 02/27/18 08:35 Lymph # (Auto) 0.6 K/uL (1.0-4.3) L 02/27/18 08:35 [place] # (Auto) 0.8 K/uL (0.0-0.8) 02/27/18 08:35 Eos # (Auto) 0.4 K/uL (0.0-0.7) 02/27/18 08:35 Baso # (Auto) 0.1 K/uL (0.0-0.2) 02/27/18 08:35 Neutrophils % (Manual) 77 % (50-75) H 02/25/18 08:24 Band Neutrophils % 1 % (0-2) 02/20/18 07:15 Lymphocytes % (Manual) 10 % (20-40) L 02/25/18 08:24 Reactive Lymphs % 1 % (0-0) H 02/20/18 07:15 Monocytes % (Manual) 5 % (0-10) 02/25/18 08:24 Eosinophils % (Manual) 7 % (0-4) H 02/25/18 08:24 Basophils % (Manual) 1 % (0-2) 02/25/18 08:24 Platelet Estimate Normal (NORMAL) 02/25/18 08:24 Large Platelets Present 02/23/18 08:06 RBC Morphology Normal 02/25/18 08:24 Anisocytosis (manual) Slight 02/23/18 08:06 PT 15.5 SECONDS (9.7-12.2) H 02/18/18 06:23 INR 1.4 02/18/18 06:23 APTT 45 SECONDS (21-34) H 02/11/18 17:20 D-Dimer, Quantitative 204 ng/mlDDU (0-243) 02/12/18 09:29 Sodium 141 mmol/L (132-148) 02/27/18 08:35 Potassium 3.9 mmol/L (3.6-5.2) 02/27/18 08:35 Chloride 100 mmol/L (98-107) 02/27/18 08:35 Carbon Dioxide 31 mmol/L (22-30) H 02/27/18 08:35 Anion Gap 14 (10-20) 02/27/18 08:35 BUN 13 mg/dL (9-20) 02/27/18 08:35 Creatinine 0.7 mg/dL (0.8-1.5) L 02/27/18 08:35 Est GFR ( Amer) > 60 02/27/18 08:35 Est GFR (Non-Af Amer) > 60 02/27/18 08:35 Random Glucose 134 mg/dL (75-110) H 02/27/18 08:35 Calcium 8.7 mg/dl (8.6-10.4) 02/27/18 08:35 Phosphorus 4.0 mg/dL (2.5-4.5) 02/27/18 08:35 Magnesium 1.7 mg/dL (1.6-2.3) 02/27/18 08:35 Total Bilirubin 1.1 mg/dL (0.2-1.3) 02/27/18 08:35 AST 33 U/L (17-59) 02/27/18 08:35 ALT 39 U/L (21-72) 02/27/18 08:35 Alkaline Phosphatase 126 U/L (38-126) 02/27/18 08:35 Total Creatine Kinase 73 U/L (55-170) 02/12/18 04:18 CK-MB (Mass) 1.45 ng/mL (0.0-3.38) 02/12/18 04:18 Troponin I 0.0200 ng/mL (0.00-0.120) 02/12/18 04:18 NT-Pro-B Natriuret Pep 1940 pg/mL (0-900) H 02/11/18 17:20 Total Protein 6.9 g/dL (6.3-8.3) 02/27/18 08:35 Albumin 3.9 g/dL (3.5-5.0) 02/27/18 08:35 Globulin 3.0 gm/dL (2.2-3.9) 02/27/18 08:35 Albumin/Globulin Ratio 1.3 (1.0-2.1) 02/27/18 08:35 Urine Color Yellow (YELLOW) 02/11/18 18:10 Urine Clarity Clear (Clear) 02/11/18 18:10 Urine pH 5.0 (5.0-8.0) 02/11/18 18:10 Ur Specific [place] 1.011 (1.003-1.030) 02/11/18 18:10 Urine Protein Negative mg/dL (NEGATIVE) 02/11/18 18:10 Urine Glucose (UA) Normal mg/dL (Normal) 02/11/18 18:10 Urine Ketones Negative mg/dL (NEGATIVE) 02/11/18 18:10 Urine Blood 1+ (NEGATIVE) H 02/11/18 18:10 Urine Nitrate Negative (NEGATIVE) 02/11/18 18:10 Urine Bilirubin Negative (NEGATIVE) 02/11/18 18:10 Urine Urobilinogen Normal mg/dL (0.2-1.0) 02/11/18 18:10 Ur Leukocyte Esterase Trace Cara/uL (Negative) 02/11/18 18:10 Urine WBC (Auto) 2 /hpf (0-5) 02/11/18 18:10 Urine RBC (Auto) < 1 /hpf (0-3) 02/11/18 18:10 - Hospital Course Hospital Course: Admitted on 02/14/18 H&P HPI: 82 year old male with past medical history as noted below presents to the ER for shortness of breath. Patient states he started having sob at 11am today. He states he was walking in his apartment and he could not catch his breath. He had to sit himself down and it took about 25 minutes before he felt better. He states his neighbors called 911 for him. He states this is the first time this has occurred. He states he felt lightheaded when he was short of breath and weak. He states he uses only one pillow to sleep and he does not use oxygen at home. He denies chest pain, nausea, vomiting, dizziness, headache , diarrhea, constipation, palpitations, dysuria, leg edema at this time. He states he uses a rolling walker and a cane for ambulation. PMD: Dr. Zuniga Particle Board Supervisor: Dr. Byrd Past Medical History: HTN; Afib; PVD; left heel ulcer (6 months); mandibular cyst Past Surgical History: TAVR - aortic valve replacement 03/2015; Pacemaker 03/2015 - last interrogated was last week; 2 veins removed in his left lower extremity ( 10/2017 and 2014) Medications: Plavix 75mg dialy; Valsartan 40mg daily; Crestor 5mg daily; Xarelta 10mg dialy; protonix 40mg daily; metoprolol tartrate 25mg daily; Lasix 40mg dialy; Fluoxetine 20mg daily Allergies: Penicillin - swelling Family History: Dad - heart disease; at 49yo due to coronary thrombosis; Mom - heart disease; paternal uncle - heart disease Social History: quit smoking 30 years ago; previously smoked for 20 years about 1ppd; drinks 1 beer on a Sunday; denies illicit drug use; lives home along has a home visiting nurse; stopped working in 2014 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 Code Status: DNR/DNI --> patient states he has a POLST form at home Advanced directive: denies POA: Austin Ogden (niece) #[phone]; #[phone] Hospital course: Patient was admitted and monitored on telemetry for complaint of dyspnea. Serial troponins and EKGs were negative, decreasing likelihood of acute coronary syndrome. Given history of aortic stenosis s/p TAVR, Atrial fibrillation with pacemaker in place, patient had a ECHO and MUGA scan which revealed low ejection fraction. Holter monitor was placed the week before admission which reportedly did not reveal any ventricular tacchyarrythmias. Due to low EF, patient was transferred to [facility] for AICD placement on . After returning from AICD placement, he was noted to have significant ecchymoses on chest and left arm. Xarelto was held at that time, and resumed after ecchymoses start to resolve. He reported that his shortness of breath improved. Dressings to left heel ulcer were changed regularly during admission. Patient was initially medically stable for discharge, however developed confusion after he was given Benadryl and Solumedrol for a rash he developed on his neck. Neurology Dr. Hartman was consulted at that time for evaluation of his confusion, who ordered CT head and CT angio of head and neck. Neurointerventionalist Dr. Hughes was consulted for findings of carotid stenosis, who indicated that there was no need for surgical intervention and recommended outpatient follow up. On discharge, patient was no longer dyspneic, alert and oriented x3 and medically stable for discharge to transitional care unit. Imaging: CXR 02/11/18: no active disease ECHO 02/12/18 technically difficult and limited study. the left ventricle is severely dilated. there is mild asymmetric left ventricular hypertrophy. LV systolic function is mildly impaired. the EF is 40-45%. There is global hypokinesis of the left ventricle. The LV diastolic function is normal. The RV is normal size. The RV systolic function is normal. The LA moderately dilated. The RA is moderately dilated. Trace aortic regurgitation. Calculated aortic valve area is 1.6cm2 with maximum pressure gradient of 4mmHg. mitral regurgitation is mild to moderate. There is mild tricuspid regurgitation. MUGA scan 02/12/18: EF 29% CXR Status post of removal of single lead pacemaker, placement of multilead pacemaker/defibrillator. No evidence of pneumothorax. CT head (02/22/18): no evidence of acute intracranial hemorrhage. Mild to moderate chronic white matter ischemic changes, bilateral basal nuclei and brainstem, mild to moderate generalized volume loss. 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 Significant on stenosis proximal intradural segment distal left vertebral artery at 70%. intracerebral arteries are patent though are calcified plaque changes along the cavernous segments. Discussed with nurse practitioner on neurology service, she will f/u with neuro- interventionalist at this time for recommendations/intervention. Discharge Summary The following instructions should be included with patient's [facility]: 1[facility] Please continue the following medicatoins while at [facility]: Xarelto 10 mg PO 1x/day Lasix 400 mg PO 1x/day Cozaar 25 mg PO 1x/day Metoprolol Succinate 75 mg PO 1x/day Plavix 75 mg PO 1x/day Crestor 5 mg PO HS Pantaprozole 40 mg PO 1x/day Fluoxetine 20 mg PO 1x/day 2). Patient will need to follow up with the following physicians [facility]: Primary Care Physician Dr. Zuniga: for coordation of care and continued monitoring of the lipomas mentioned in physical exam Particle Board Supervisor Dr. Vu: for his extensive cardiac history Wound Care Dr. Kenney: for his chronic left heal ulcer 3). For his Chronic Left Heal Ulcer while at [facility]: MediHoney and then cover with OptiFoam Dressing 1x/day. 4). [facility] Physician Communication Note dated 02/27/18 for summary of Assessment and Plans for this patient. This is a summary of patient's hospital course. Please refer to EMR for full medical course. Discharge Exam - Head Exam Head Exam: ATRAUMATIC, NORMOCEPHALIC - Eye Exam Eye Exam: EOMI. absent: Scleral icterus - ENT Exam ENT Exam: Mucous Membranes Moist - Neck Exam Additional comments: no erythema, swelling or tenderness on neck. full ROM. no thyromegaly. - Respiratory Exam Respiratory Exam: Clear to PA & Lateral, NORMAL BREATHING PATTERN. absent: Rales, Rhonchi, Respiratory Distress, Stridor - Cardiovascular Exam Cardiovascular Exam: Irregular Rhythm, +S1, +S2 Additional comments: AICD in place. resolving ecchymosis to chest. - GI/Abdominal Exam GI & Abdominal Exam: Normal Bowel Sounds, Soft. absent: Distended, Guarding, Tenderness - Extremities Exam Extremities exam: pedal pulses present Additional comments: Healing ulcer on left medial ankle no calf tenderness. - Back Exam Back exam: absent: rash noted Additional comments: resolving ecchymoses to low back - Neurological Exam Neurological exam: Alert, CN II-XII Intact, Oriented x3 - Skin Additional comments: Mobile nonfluctuant mass on left scapula Mobile 2cm circular nodule at the left angle of mandible. Discharge Plan - Follow Up Plan Condition: STABLE Disposition: REHAB FACILITY/REHAB UNIT Instructions: Heart Healthy Diet, Atrial Fibrillation (DC), Heart Failure, Adult (DC), Shortness of Breath (Dyspnea) (DC), Heart Failure and Atrial Fibrillation, Automatic Cardioverter Defibrillator Implantation (DC) Additional Instructions: The following instructions should be included with patient's paperwork to be given to [facility]: 1). Please continue the following medicatoins while at [facility]: Xarelto 10 mg PO 1x/day Lasix 400 mg PO 1x/day Cozaar 25 mg PO 1x/day Metoprolol Succinate 75 mg PO 1x/day Plavix 75 mg PO 1x/day Crestor 5 mg PO HS Pantaprozole 40 mg PO 1x/day Fluoxetine 20 mg PO 1x/day 2). Patient will need to follow up with the following physicians upon discharge from [facility]: Primary Care Physician Dr. Zuniga: for coordation of care and continued monitoring of the lipomas mentioned in physical exam Particle Board Supervisor Dr. Vu: for his extensive cardiac history Wound Care Dr. Kenney: for his chronic left heal ulcer 3). For his Chronic Left Heal Ulcer while at [facility]: MediHoney and then cover with OptiFoam Dressing 1x/day. 4). [facility] should refer to [facility] Physician Communication Note dated 02/27/18 for summary of Assessment and Plans for this patient. Referrals: Hawk Byrd MD [Medical Doctor] - Tammie Kenney DPM [Medical Doctor] - Ravindra Zuniga DO [Doctor Osteopathy] -
[2018-02-27 16:01] VITALS: BP 121/76; PULSE 95; TEMP 97.4; O2SAT 99
--- NOTE | 2018-02-28 07:40 | PCM.HF ---
Heart Failure Core Measure - Heart Failure Ejection Fraction: Less Than 40 % GRACIA Inhibitor Prescribed: Yes Beta-Josue Prescribed: Metoprolol Succinate Angiotensin II Receptor Josue Prescribed: No Contraindication/Reason for not providing: on gracia AnticoagulationTherapy for Atrial Fibrillation/Atrialflutter: Yes Aldosterone Antagonist Prescribed: No Contraindication/Reason for not providing: risk of hyperkalemia Hydralazine Nitrate Prescribed: No Contraindication/Reason for not providing: on calacium channel josue Implantable Cardioverter Defibrillator Therapy: No Contraindication/Reason for not providing: pt has pacemaker Cardiac Resynchronization Therapy Prescribed: No Contraindication/Reason for not providing: pt has pacemaker - Follow up Will be discharged to: Intermediate Facility ([facility])
== END 2018-02-27 16:32 | DRG 292 ==
LOC: C.ER 16:30 → C.9E 18:10 → C.6T 20:57
PROVIDERS: ADMIT Family Medicine; ATTEND Family Medicine
DX: I11.0 Hypertensive heart disease with heart failure (principal); L97.429 Non-pressure chronic ulcer of left heel and midfoot with unspecified severity; T82.119A Breakdown (mechanical) of unspecified cardiac electronic device, initial encounter; I25.10 Atherosclerotic heart disease of native coronary artery without angina pectoris; I34.0 Nonrheumatic mitral (valve) insufficiency; I42.9 Cardiomyopathy, unspecified; F01.50 Vascular dementia, unspecified severity, without behavioral disturbance, psychotic disturbance, mood disturbance, and anxiety; I44.7 Left bundle-branch block, unspecified; I48.2 Chronic atrial fibrillation; I50.9 Heart failure, unspecified; I73.9 Peripheral vascular disease, unspecified; J44.9 Chronic obstructive pulmonary disease, unspecified; Y71.2 Prosthetic and other implants, materials and accessory cardiovascular devices associated with adverse incidents; I65.21 Occlusion and stenosis of right carotid artery; I08.1 Rheumatic disorders of both mitral and tricuspid valves; F40.240 Claustrophobia; D17.9 Benign lipomatous neoplasm, unspecified; R41.0 Disorientation, unspecified; Z66 Do not resuscitate; Z95.2 Presence of prosthetic heart valve; Z95.0 Presence of cardiac pacemaker; Z87.891 Personal history of nicotine dependence; Z79.02 Long term (current) use of antithrombotics/antiplatelets; Z79.01 Long term (current) use of anticoagulants; Z79.899 Other long term (current) drug therapy